=== PATIENT | female | born 1935 | race Caucasian/White ===

== ENCOUNTER 2020-05-22 17:30 | Outpatient (CLI) | payer MEDICARE, SELFPAY ==
[2020-05-22 18:28] LABS: Basophils Percent Auto 0.4 % (0.2-1.2); Eosinophils Absolute Auto 0.3 K/mm3 (0-0.3); Eosinophils Percent Auto 3.7 % (0-4.4); Hematocrit 36.3 % (37.0-47.0); Hemoglobin 12.2 g/dL (12.0-15.0); Immature Granulocyte Absolute 0.03 K/mm3 (0.00-0.031); Immature Granulocyte Percent A 0.4 % (0-0.5); Lymphocytes Absolute Auto 1.79 K/mm3 (0.9-3.2); Lymphocytes Percent Auto 26.6 % (18.3-44.2); Mean Corpuscular HGB Conc 33.6 g/dl (32-36); Mean Corpuscular Hemoglobin 30.7 pg (26-34); Mean Corpuscular Volume 91.2 fl (80-100); Mean Platelet Volume 10.1 fl (7.4-10.4); Monocytes Absolute Auto 0.7 K/mm3 (0.1-0.6); Monocytes Percent Auto 9.7 % (2.6-8.5); Neutrophils Percent Auto 59.2 % (45.5-73.1); Platelet Count Result 215 k/mm3 (150-375); Red Blood Count 3.98 M/mm3 (4.2-5.4); Red Cell Distribution Width 12.5 % (11.5-14.5); White Blood Count 6.7 K/mm3 (4.5-10.0)
[2020-05-22 18:42] LABS: Alanine Aminotransferase 19 U/L (4-35); Albumin Level 4.3 g/dL (3.5-5.1); Alkaline Phosphatase 87 U/L (38-126); Anion Gap 8 mmol/L (8-16); Aspartate Amino Transferase 28 U/L (14-36); Bilirubin,Total 0.3 mg/dL (0.2-1.3); Blood Urea Nitrogen 16 mg/dL (7-17); Calcium 9.6 mg/dL (8.4-10.2); Carbon Dioxide 27 mmol/L (22-30); Chloride 98 mmol/L (98-107); Cholesterol 190 mg/dL (0-200); Estimated Glomerular Filt Rate > 60; Glucose 87 mg/dL (65-105); HDL Direct 44 mg/dL; Potassium 4.3 mmol/L (3.4-5.0); Sodium 133 mmol/L (137-145); Triglycerides 165 mg/dL (<150)
[2020-05-22 18:53] LABS: LDL Cholesterol Direct 102 mg/dL
== END 2020-05-22 17:31 | disposition home or self-care (01) ==
PROVIDERS: PCP Family Medicine; Visit Provider Family Medicine
DX: G89.29 Other chronic pain (principal); M54.5 Low back pain; I10 Essential (primary) hypertension
CPT/HCPCS: 36415; 80053; 80061; 84443; 85025

== ENCOUNTER 2021-06-09 17:48 | Emergency (ER) | payer MEDICARE, SELFPAY ==
--- NOTE | ~2021-06-09 | XR_ITS ---
EXAMINATION: XR elbow LT min 3V DATE: 06/09/2021 20:22 INDICATION: Posterior left elbow pain and skin tear post fall. TECHNIQUE: Anteroposterior, two oblique and lateral views of the left elbow were obtained. COMPARISON: None. FINDINGS: Alignment is normal. No fracture or joint effusion. Mild osteoarthritis at the left elbow. Small enth esophytes at the lateral epicondyle and at the olecranon insertion of the distal triceps tendon. Soft tissue swelling along the dorsal aspect of the proximal forearm. IMPRESSION: 1. Mild osteoarthritis and small enthesophytes at the left elbow. No acute osseous abnormality. Reviewed, dictated and finalized at location A. IMPRESSION: 1. Mild osteoarthritis and small enthesophytes at the left elbow. No acute osse ous abnormality.
[2021-06-09 18:08] VITALS: BP 148/64; PULSE 77; RESP 16; TEMP 36.8; O2SAT 100
[2021-06-09] MEDS: TETANUS,DIPHTHERIA,AC PERTUSSIS ADULT (0.5 ML) BOOSTRIX IM (20:30)
--- NOTE | 2021-06-09 20:38 | ED.GENADULT ---
HPI - General Adult General Chief complaint: Fall Stated complaint: Fall Time Seen by Provider: 06/09/21 19:59 History of Present Illness HPI narrative: Patient is 85-year-old female presents the emergency department with chief complaint of fall. The patient reports she was walking into a local [employer] restaurant and tripped over a curb. Patient states she then fell landing on her left elbow. The patient reports she had no loss of consciousness reports no neck pain patient states that she is unsure of her last tetanus shot but reports she had a presignificant skin tear to her left elbow. Related Data Home Medications Medication Instructions Recorded Confirmed Lactobacillus acidophilus 1.5 mg 100 mmu cells PO DAILY 05/22/20 02/06/21 (250 million cell) capsule calcium carbonate 600 mg calcium 1,200 mg PO DAILY tablet 05/22/20 02/06/21 (1,500 mg) tablet hydrocodone 5 mg-acetaminophen 325 1 tablet PO Q6H PRN 05/22/20 02/06/21 mg tablet multivitamin 1 tablet PO DAILY 05/22/20 02/06/21 Allergies Allergy/AdvReac Type Severity Reaction Status Date / Time latex Allergy Mild Other Verified 02/06/21 14:53 NSAIDS (Non-Steroidal Allergy Unknown ulcer Verified 02/06/21 14:53 Anti-Inflamma Penicillins Allergy Unknown Hives Verified 02/06/21 14:53 Sulfa (Sulfonamide Allergy Unknown Hives Verified 02/06/21 14:53 Antibiotics) fluorescein AdvReac Unknown LIGHTHEADED Verified 02/06/21 14:53 Review of Systems Review of Systems: A 10 system review of systems was completed on the patient and is negative except for what is stated in the HPI. Nursing and ancillary documentation was reviewed. [facility] Past Medical History Medical History Chronic lower back pain Constipation due to opioid therapy CTS (carpal tunnel syndrome) Gastric ulcer HTN (hypertension) Osteoarthritis Osteomyelitis of wrist Perforated duodenal ulcer Repair Rotator cuff tear Vitamin D deficiency Surgical History Surgical History H/O: hysterectomy 01/18/2016 History of appendectomy Total knee replacement status (~07/01/20) Social History Social History Smoking status: Never smoker Alcohol intake: never Substance use: never Substance use type: does not use Gender identity (if verbalized by the patient): Female Exam Narrative: GENERAL: Well-appearing, well-nourished, and in no acute distress. HEAD: Normocephalic, small abrasion present next to the left eyebrow. EYES: PERRLA and EOMI. ENT: Nares clear, no rhinorrhea or epistaxis. Mucous membranes moist. NECK: Supple. CHEST: Clear to auscultation. No respiratory distress. HEART: Regular rate and rhythm. No murmur heard. Normal peripheral pulses. ABDOMEN: Soft, nontender, nondistended, normal active bowel sounds. EXTREMITIES: Normal range of motion. No edema. There is a large skin tear present on the left elbow SKIN: Warm, dry, no rash. NEURO: No focal deficits. Alert and oriented x3. PSYCH: Normal mood and affect. Course Course Emergency Course: Patient is currently GCS 15 shows no signs of altered mental status or focal neurological deficit she is currently not on any blood thinners the patient does not require emergent head CT shows no signs of C-spine injury. Elbow x-ray shows no evidence of fracture. Vital Signs Vital signs: Vital Signs Temperature 36.8 C 06/09/21 18:08 Pulse Rate 77 06/09/21 18:08 Respiratory Rate 16 06/09/21 18:08 Blood Pressure 148/64 H 06/09/21 18:08 Pulse Oximetry 100 06/09/21 18:08 Temperature 36.8 C 06/09/21 18:08 Pulse Rate 77 06/09/21 18:08 Respiratory Rate 16 06/09/21 18:08 Blood Pressure 148/64 H 06/09/21 18:08 Pulse Oximetry 100 06/09/21 18:08 Medical Decision Making Vital Signs Vital Signs: Vital Signs Temper
[2021-06-09 21:43] VITALS: BP 123/52; PULSE 66; RESP 18; O2SAT 99
== END 2021-06-09 21:53 | disposition home or self-care (01) ==
PROVIDERS: Emergency Provider Emergency Medicine; PCP Family Medicine
DX: S51.012A Laceration without foreign body of left elbow, initial encounter (principal); S09.90XA Unspecified injury of head, initial encounter; S50.02XA Contusion of left elbow, initial encounter; Z23 Encounter for immunization; I10 Essential (primary) hypertension; M19.90 Unspecified osteoarthritis, unspecified site; E55.9 Vitamin D deficiency, unspecified; W10.1XXA Fall (on)(from) sidewalk curb, initial encounter
CPT/HCPCS: 73080; 90471; 90715; 99283

== ENCOUNTER 2021-07-10 14:11 | Outpatient (CLI) | payer MEDICARE, SELFPAY ==
[2021-07-10 14:38] LABS: Basophils Percent Auto 0.6 % (0.2-1.2); Eosinophils Absolute Auto 0.2 K/mm3 (0-0.3); Eosinophils Percent Auto 2.9 % (0-4.4); Hematocrit 34.7 % (37.0-47.0); Hemoglobin 11.2 g/dL (12.0-15.0); Immature Granulocyte Absolute 0.01 K/mm3 (0.00-0.031); Immature Granulocyte Percent A 0.1 % (0-0.5); Lymphocytes Absolute Auto 1.03 K/mm3 (0.9-3.2); Lymphocytes Percent Auto 14.9 % (18.3-44.2); Mean Corpuscular HGB Conc 32.3 g/dl (32-36); Mean Corpuscular Hemoglobin 28.9 pg (26-34); Mean Corpuscular Volume 89.7 fl (80-100); Mean Platelet Volume 10.1 fl (7.4-10.4); Monocytes Absolute Auto 0.9 K/mm3 (0.1-0.6); Monocytes Percent Auto 12.4 % (2.6-8.5); Neutrophils Absolute Auto 4.8 K/mm3 (1.3-6.7); Neutrophils Percent Auto 69.1 % (45.5-73.1); Platelet Count Result 224 k/mm3 (150-375); Red Blood Count 3.87 M/mm3 (4.2-5.4); Red Cell Distribution Width 12.6 % (11.5-14.5); White Blood Count 6.9 K/mm3 (4.5-10.0)
[2021-07-10 14:58] LABS: Alanine Aminotransferase 17 U/L (4-35); Albumin Level 4.7 g/dL (3.5-5.1); Alkaline Phosphatase 96 U/L (38-126); Anion Gap 7 mmol/L (8-16); Aspartate Amino Transferase 31 U/L (14-36); Bilirubin,Total 0.3 mg/dL (0.2-1.3); Blood Urea Nitrogen 27 mg/dL (7-17); Calcium 9.8 mg/dL (8.4-10.2); Carbon Dioxide 30 mmol/L (22-30); Chloride 97 mmol/L (98-107); Cholesterol 193 mg/dL (0-200); Estimated Glomerular Filt Rate 60; Glucose 99 mg/dL (65-110); HDL Direct 56 mg/dL; Potassium 4.8 mmol/L (3.4-5.0); Sodium 134 mmol/L (137-145); Triglycerides 229 mg/dL (<150)
[2021-07-10 15:10] LABS: LDL Cholesterol Direct 98 mg/dL
[2021-07-10 16:12] LABS: Vitamin D 25 Hydroxy 49.5 ng/mL
== END 2021-07-10 14:12 | disposition home or self-care (01) ==
PROVIDERS: PCP Family Medicine; Visit Provider Family Medicine
DX: E78.5 Hyperlipidemia, unspecified (principal); I10 Essential (primary) hypertension; E55.9 Vitamin D deficiency, unspecified
CPT/HCPCS: 36415; 80053; 80061; 82306; 84443; 85025

== ENCOUNTER 2022-01-22 14:12 | Outpatient (CLI) | payer MEDICARE, SELFPAY ==
[2022-01-22 14:33] LABS: Basophils Percent Auto 0.6 % (0.2-1.2); Eosinophils Absolute Auto 0.2 K/mm3 (0-0.3); Eosinophils Percent Auto 2.3 % (0-4.4); Hematocrit 26.9 % (37.0-47.0); Hemoglobin 7.8 g/dL (12.0-15.0); Immature Granulocyte Absolute 0.01 K/mm3 (0.00-0.031); Immature Granulocyte Percent A 0.1 % (0-0.5); Lymphocytes Absolute Auto 0.94 K/mm3 (0.9-3.2); Lymphocytes Percent Auto 13.4 % (18.3-44.2); Mean Platelet Volume 9.3 fl (7.4-10.4); Monocytes Absolute Auto 0.8 K/mm3 (0.1-0.6); Neutrophils Absolute Auto 5.1 K/mm3 (1.3-6.7); Neutrophils Percent Auto 72.6 % (45.5-73.1); Platelet Count Result 274 k/mm3 (150-375); Red Blood Count 3.54 M/mm3 (4.2-5.4); Red Cell Distribution Width 16.3 % (11.5-14.5)
[2022-01-22 14:52] LABS: Hypochromasia 1+ (NORMAL); Ovalocytes 1+ (NORMAL); Platelet Estimate Adequate (Adequate)
[2022-01-22 15:49] LABS: Alanine Aminotransferase 17 U/L (4-35); Albumin Level 4.5 g/dL (3.5-5.1); Alkaline Phosphatase 93 U/L (38-126); Anion Gap 8 mmol/L (8-16); Aspartate Amino Transferase 32 U/L (14-36); Bilirubin,Total 0.3 mg/dL (0.2-1.3); Blood Urea Nitrogen 23 mg/dL (7-17); Calcium 9.3 mg/dL (8.4-10.2); Carbon Dioxide 25 mmol/L (22-30); Chloride 102 mmol/L (98-107); Estimated Glomerular Filt Rate 59; Glucose 103 mg/dL (65-110); Potassium 4.4 mmol/L (3.4-5.0); Sodium 135 mmol/L (137-145)
== END 2022-01-22 14:13 | disposition home or self-care (01) ==
LOC: ANHLAB 14:15
PROVIDERS: PCP Family Medicine; Visit Provider Family Medicine
DX: D64.9 Anemia, unspecified (principal); I10 Essential (primary) hypertension
CPT/HCPCS: 36415; 80053; 85025

== ENCOUNTER 2022-02-04 16:19 | Outpatient (NON) | payer MEDICARE, SELFPAY ==
[2022-02-04 20:42] LABS: IFOB Positive Control Positive; Immunochemical Fecal Occult Bl Positive (N)
== END 2022-02-04 16:20 | disposition home or self-care (01) ==
LOC: ANHLAB 16:21
PROVIDERS: PCP Family Medicine; Visit Provider Family Medicine
DX: D64.9 Anemia, unspecified (principal)
CPT/HCPCS: 82274

== ENCOUNTER 2022-02-05 15:17 | Outpatient (CLI) | payer MEDICARE, SELFPAY ==
[2022-02-05 15:38] LABS: Basophils Percent Auto 0.4 % (0.2-1.2); Eosinophils Absolute Auto 0.2 K/mm3 (0-0.3); Eosinophils Percent Auto 2.3 % (0-4.4); Hematocrit 27.5 % (37.0-47.0); Hemoglobin 7.9 g/dL (12.0-15.0); Immature Granulocyte Absolute 0.02 K/mm3 (0.00-0.031); Immature Granulocyte Percent A 0.3 % (0-0.5); Lymphocytes Absolute Auto 1.11 K/mm3 (0.9-3.2); Mean Corpuscular HGB Conc 28.7 g/dl (32-36); Mean Corpuscular Hemoglobin 21.5 pg (26-34); Mean Corpuscular Volume 74.7 fl (80-100); Mean Platelet Volume 9.4 fl (7.4-10.4); Monocytes Absolute Auto 0.8 K/mm3 (0.1-0.6); Monocytes Percent Auto 11.8 % (2.6-8.5); Neutrophils Absolute Auto 4.8 K/mm3 (1.3-6.7); Neutrophils Percent Auto 69.2 % (45.5-73.1); Platelet Count Result 283 k/mm3 (150-375); Red Blood Count 3.68 M/mm3 (4.2-5.4); Red Cell Distribution Width 16.5 % (11.5-14.5); White Blood Count 6.9 K/mm3 (4.5-10.0)
[2022-02-05 15:55] LABS: Hypochromasia 1+ (NORMAL); Ovalocytes 1+ (NORMAL); Platelet Estimate Adequate (Adequate)
[2022-02-05 16:31] LABS: Iron 21 ug/dL (37-170)
[2022-02-05 16:41] LABS: Percent Iron Saturation 4 % (20-50)
[2022-02-05 17:08] LABS: Ferritin 5.71 ng/mL (11.1-264)
[2022-02-05 17:17] LABS: Folic Acid > 20.0 ng/mL (2.76->20)
== END 2022-02-05 15:18 | disposition home or self-care (01) ==
PROVIDERS: PCP Family Medicine; Visit Provider Family Medicine
DX: D64.9 Anemia, unspecified (principal)
CPT/HCPCS: 36415; 82607; 82728; 82746; 83540; 83550; 85025

== ENCOUNTER 2022-03-09 10:50 | Outpatient (CLI) | payer MEDICARE, SELFPAY ==
[2022-03-09 11:29] LABS: Hematocrit 32.7 % (37.0-47.0); Hemoglobin 10.2 g/dL (12.0-15.0); Mean Corpuscular HGB Conc 31.2 g/dl (32-36); Mean Corpuscular Hemoglobin 24.6 pg (26-34); Mean Platelet Volume 9.5 fl (7.4-10.4); Platelet Count Result 241 k/mm3 (150-375); Red Blood Count 4.14 M/mm3 (4.2-5.4); Red Cell Distribution Width 25.3 % (11.5-14.5); White Blood Count 5.1 K/mm3 (4.5-10.0)
[2022-04-03 15:09] LABS: Gliadin AB, IgG <1.0 U/mL (<15.0); Reticulin IgA Negative (Negative); TTG IGA AB <1.0 U/mL (<15.0)
== END 2022-03-09 10:51 | disposition home or self-care (01) ==
LOC: ANHLAB 10:54
PROVIDERS: PCP Family Medicine; Visit Provider Nurse Practitioner
DX: D50.9 Iron deficiency anemia, unspecified (principal); K59.09 Other constipation
CPT/HCPCS: 36415; 83516; 84443; 85027; 86255

== ENCOUNTER 2022-05-19 16:09 | Outpatient (CLI) | payer MEDICARE, SELFPAY ==
[2022-05-19 16:58] LABS: Basophils Percent Auto 0.5 % (0.2-1.2); Eosinophils Absolute Auto 0.2 K/mm3 (0-0.3); Eosinophils Percent Auto 3.2 % (0-4.4); Hematocrit 37.9 % (37.0-47.0); Hemoglobin 12.2 g/dL (12.0-15.0); Immature Granulocyte Absolute 0.01 K/mm3 (0.00-0.031); Immature Granulocyte Percent A 0.2 % (0-0.5); Lymphocytes Absolute Auto 0.97 K/mm3 (0.9-3.2); Lymphocytes Percent Auto 17.2 % (18.3-44.2); Mean Corpuscular HGB Conc 32.2 g/dl (32-36); Mean Corpuscular Hemoglobin 29.1 pg (26-34); Mean Corpuscular Volume 90.5 fl (80-100); Mean Platelet Volume 9.7 fl (7.4-10.4); Monocytes Absolute Auto 0.6 K/mm3 (0.1-0.6); Monocytes Percent Auto 11.2 % (2.6-8.5); Neutrophils Absolute Auto 3.8 K/mm3 (1.3-6.7); Neutrophils Percent Auto 67.7 % (45.5-73.1); Platelet Count Result 218 k/mm3 (150-375); Red Blood Count 4.19 M/mm3 (4.2-5.4); White Blood Count 5.6 K/mm3 (4.5-10.0)
[2022-05-19 17:12] LABS: Alanine Aminotransferase 20 U/L (6-35); Albumin Level 4.5 g/dL (3.5-5.1); Alkaline Phosphatase 84 U/L (38-126); Anion Gap 11 mmol/L (8-16); Aspartate Amino Transferase 32 U/L (14-36); Bilirubin,Total 0.2 mg/dL (0.2-1.3); Blood Urea Nitrogen 21 mg/dL (7-17); Calcium 9.6 mg/dL (8.4-10.2); Carbon Dioxide 30 mmol/L (22-30); Chloride 94 mmol/L (98-107); Estimated Glomerular Filt Rate 59; Glucose 94 mg/dL (65-110); Lactate Dehydrogenase 207 U/L (120-246); Potassium 4.1 mmol/L (3.4-5.0); Sodium 135 mmol/L (137-145)
[2022-05-19 17:15] LABS: Iron 73 ug/dL (37-170)
[2022-05-19 18:40] LABS: Folic Acid > 20.0 ng/mL (2.76->20)
[2022-05-19 18:40] LABS: Percent Iron Saturation 17 % (20-50)
[2022-05-23 08:25] LABS: Methylmalonic Acid 173 nmol/L (87-318)
== END 2022-05-19 16:10 | disposition home or self-care (01) ==
LOC: ANHLAB 16:11
PROVIDERS: PCP Family Medicine; Visit Provider Internal Medicine Hematology & Oncology
DX: D64.9 Anemia, unspecified (principal)
CPT/HCPCS: 36415; 80053; 82607; 82728; 82746; 83540; 83550; 83615; 83921; 85025

== ENCOUNTER 2022-08-06 13:56 | Outpatient (CLI) | payer MEDICARE, SELFPAY ==
[2022-08-06 14:14] LABS: Basophils Absolute Auto 0.1 K/mm3 (0.0-0.1); Basophils Percent Auto 0.6 % (0.2-1.2); Eosinophils Absolute Auto 0.2 K/mm3 (0-0.3); Eosinophils Percent Auto 2.8 % (0-4.4); Hematocrit 39.5 % (37.0-47.0); Hemoglobin 13.3 g/dL (12.0-15.0); Immature Granulocyte Absolute 0.02 K/mm3 (0.00-0.031); Immature Granulocyte Percent A 0.3 % (0-0.5); Lymphocytes Absolute Auto 1.24 K/mm3 (0.9-3.2); Lymphocytes Percent Auto 15.8 % (18.3-44.2); Mean Corpuscular HGB Conc 33.7 g/dl (32-36); Monocytes Absolute Auto 0.9 K/mm3 (0.1-0.6); Neutrophils Absolute Auto 5.5 K/mm3 (1.3-6.7); Neutrophils Percent Auto 69.5 % (45.5-73.1); Platelet Count Result 231 k/mm3 (150-375); Red Blood Count 4.16 M/mm3 (4.2-5.4); Red Cell Distribution Width 12.8 % (11.5-14.5); White Blood Count 7.8 K/mm3 (4.5-10.0)
[2022-08-06 16:30] LABS: Iron 62 ug/dL (37-170)
[2022-08-06 16:40] LABS: Percent Iron Saturation 15 % (20-50)
[2022-08-06 17:55] LABS: Folic Acid > 20.0 ng/mL (2.76->20)
== END 2022-08-06 13:57 | disposition home or self-care (01) ==
PROVIDERS: PCP Family Medicine; Visit Provider Internal Medicine Hematology & Oncology
DX: D64.9 Anemia, unspecified (principal)
CPT/HCPCS: 36415; 82607; 82728; 82746; 83540; 83550; 85025

== ENCOUNTER 2022-11-05 14:46 | Outpatient (CLI) | payer MEDICARE, SELFPAY ==
[2022-11-05 14:58] LABS: Basophils Percent Auto 0.3 % (0.2-1.2); Eosinophils Absolute Auto 0.2 K/mm3 (0-0.3); Eosinophils Percent Auto 2.3 % (0-4.4); Hematocrit 39.9 % (37.0-47.0); Hemoglobin 13.4 g/dL (12.0-15.0); Immature Granulocyte Absolute 0.02 K/mm3 (0.00-0.031); Immature Granulocyte Percent A 0.3 % (0-0.5); Lymphocytes Absolute Auto 1.18 K/mm3 (0.9-3.2); Lymphocytes Percent Auto 16.8 % (18.3-44.2); Mean Corpuscular HGB Conc 33.6 g/dl (32-36); Mean Corpuscular Hemoglobin 31.9 pg (26-34); Mean Platelet Volume 9.5 fl (7.4-10.4); Monocytes Absolute Auto 0.7 K/mm3 (0.1-0.6); Monocytes Percent Auto 10.4 % (2.6-8.5); Neutrophils Absolute Auto 4.9 K/mm3 (1.3-6.7); Neutrophils Percent Auto 69.9 % (45.5-73.1); Platelet Count Result 230 k/mm3 (150-375); Red Cell Distribution Width 12.3 % (11.5-14.5)
[2022-11-05 16:37] LABS: Iron 51 ug/dL (37-170)
[2022-11-05 16:38] LABS: Anion Gap 7 mmol/L (8-16); Blood Urea Nitrogen 23 mg/dL (7-17); Calcium 9.2 mg/dL (8.4-10.2); Carbon Dioxide 32 mmol/L (22-30); Chloride 97 mmol/L (98-107); Estimated Glomerular Filt Rate 59; Glucose 97 mg/dL (65-110); Potassium 4.2 mmol/L (3.4-5.0); Sodium 136 mmol/L (137-145)
[2022-11-05 16:50] LABS: Percent Iron Saturation 13 % (20-50)
[2022-11-05 17:48] LABS: Folic Acid > 20.0 ng/mL (2.76->20)
== END 2022-11-05 14:47 | disposition home or self-care (01) ==
LOC: ANHLAB 14:47
PROVIDERS: PCP Family Medicine; Visit Provider Internal Medicine Hematology & Oncology
DX: D64.9 Anemia, unspecified (principal)
CPT/HCPCS: 36415; 80048; 82607; 82728; 82746; 83540; 83550; 85025

== ENCOUNTER 2023-01-01 18:27 | Outpatient (NON) | payer MEDICARE, SELFPAY | END 2023-01-01 18:28 | disposition home or self-care (01) | LOC: ANHLAB 18:30 | PROVIDERS: PCP Family Medicine; Visit Provider Nurse Practitioner | DX: R39.9 Unspecified symptoms and signs involving the genitourinary system (principal) | CPT/HCPCS: 87077; 87086; 87186 ==

== ENCOUNTER 2023-02-24 15:50 | Outpatient (CLI) | payer MEDICARE, SELFPAY ==
[2023-02-24 16:03] LABS: Basophils Percent Auto 0.8 % (0.2-1.2); Eosinophils Absolute Auto 0.3 K/mm3 (0-0.3); Hematocrit 34.9 % (37.0-47.0); Hemoglobin 11.6 g/dL (12.0-15.0); Immature Granulocyte Absolute 0.01 K/mm3 (0.00-0.031); Immature Granulocyte Percent A 0.2 % (0-0.5); Lymphocytes Absolute Auto 1.06 K/mm3 (0.9-3.2); Lymphocytes Percent Auto 20.5 % (18.3-44.2); Mean Corpuscular HGB Conc 33.2 g/dl (32-36); Mean Corpuscular Hemoglobin 31.9 pg (26-34); Mean Corpuscular Volume 95.9 fl (80-100); Monocytes Absolute Auto 0.7 K/mm3 (0.1-0.6); Monocytes Percent Auto 13.9 % (2.6-8.5); Neutrophils Absolute Auto 3.1 K/mm3 (1.3-6.7); Neutrophils Percent Auto 59.6 % (45.5-73.1); Platelet Count Result 197 k/mm3 (150-375); Red Blood Count 3.64 M/mm3 (4.2-5.4); White Blood Count 5.2 K/mm3 (4.5-10.0)
[2023-02-24 16:31] LABS: Anion Gap 6 mmol/L (8-16); Blood Urea Nitrogen 31 mg/dL (7-17); Carbon Dioxide 28 mmol/L (22-30); Chloride 102 mmol/L (98-107); Estimated Glomerular Filt Rate 47; Glucose 92 mg/dL (65-110); Potassium 4.5 mmol/L (3.4-5.0); Sodium 136 mmol/L (137-145)
[2023-02-24 17:20] LABS: Iron 138 ug/dL (37-170)
[2023-02-24 17:29] LABS: Percent Iron Saturation 39 % (20-50)
[2023-02-24 17:44] LABS: Folic Acid > 20.0 ng/mL (2.76->20); Vitamin B12 > 1000.0 pg/mL (239-931)
== END 2023-02-24 15:51 | disposition home or self-care (01) ==
LOC: ANHLAB 15:52
PROVIDERS: PCP Family Medicine; Visit Provider Internal Medicine Hematology & Oncology
DX: D64.9 Anemia, unspecified (principal)
CPT/HCPCS: 36415; 80048; 82607; 82728; 82746; 83540; 83550; 85025

== ENCOUNTER 2023-02-27 14:51 | Observation (INO) | payer MEDICARE, SELFPAY ==
--- NOTE | ~2023-02-27 | XR_ITS ---
EXAMINATION: XR hip BI 2V w AP pelvis DATE: 02/27/2023 15:54 INDICATION: Pelvic pain after fall TECHNIQUE: AP view of the pelvis and two views of each hip were obtained. COMPARISON: 10/13/2011 FINDINGS: Bone alignment is normal. There is no fracture. There is mild osteoarthritis of the hips. S evere lumbar spondylosis is noted. A large volume of colonic stool is present. IMPRESSION: 1. No acute osseous abnormality. Reviewed, dictated and finalized at location F.
--- NOTE | ~2023-02-27 | CT_ITS ---
EXAMINATION: CT brain wo con INDICATION: Head injury COMPARISON: None TECHNIQUE: Standard unenhanced head CT. The dose-length product (DLP) was 529.67 mGy-cm. The mA was a djusted according to patient size. Iterative reconstruction technique was employed. FINDINGS: There is no acute intraparenchymal hemorrhage. No evidence of mass lesion. No evidence of a cute infarction. There is mild periventricular and subcortical hypodensity probably related to small vessel ischemic disease. There is mild prominence of the sulci and ventricles related to cerebral atr ophy. Intracranial calcified cerebral atherosclerosis is noted. There are no extra-axial collections. There is no mass effect or midline shift. Changes in the globes are likely from ocular lens surgery. The visualized sinuses and mastoid air cells are well aerated. IMPRESSION: 1. No acute intracranial abnormality. 2. Age related findings. Reviewed, dictated and finalized at location F.
--- NOTE | ~2023-02-27 | XR_ITS ---
EXAMINATION: XR elbow LT min 3V DATE: 02/27/2023 15:54 INDICATION: Left elbow pain TECHNIQUE: Anteroposterior, oblique and lateral views of the left elbow were obtained. COMPARISON: 06/09/2021 FINDINGS: Alignment is normal. No fracture or joint effusion. There is soft tissue swelling overlying the olecranon. There is mild osteoarthritis of the elbow. IMPRESSION: 1. No acute osseous abnormality. Reviewed, dictated and finalized at location F.
--- NOTE | ~2023-02-27 | XR_ITS ---
EXAMINATION: XR chest 1V INDICATION: Chest pain after fall TECHNIQUE: AP view of the chest is obtained. COMPARISON: 08/01/2013 FINDINGS: The lungs are free of acute opacities. No pleural effusion or pneumothorax. The heart size is normal. There is a moderate-sized hiatal hernia. There is severe thoracic spondylosis. IMPRESSION: 1. No acute cardiopulmonary abnormality. Reviewed, dictated and finalized at location F.
--- NOTE | ~2023-02-27 | XR_ITS ---
EXAMINATION: XR elbow RT min 3V INDICATION: Right elbow pain TECHNIQUE: Three views of the right elbow were obtained. COMPARISON: None available FINDINGS: Bone alignment is normal. There is no fracture. There is mild osteoarthritis of the elbow. An overhanging osteophyte of the radial head is noted. There is mild soft tissue swelling posterior t o the proximal ulna. IMPRESSION: 1. No acute osseous abnormality. Reviewed, dictated and finalized at location F.
--- NOTE | ~2023-02-27 | CT_ITS ---
EXAMINATION: CT cervical spine wo con DATE: 02/27/2023 16:08 INDICATION: Head injury TECHNIQUE: Computed tomography (CT) of the cervical spine was performed without intravenous contrast. The dose-length product (DLP) was 102.43 mGy-cm. Automated exposure control and iterative reconstruc tion technique were employed. COMPARISON: MRI, 02/08/2008 FINDINGS: There is chronic advanced osteoarthritis at C1-2. No fracture is identified. There are 2 mm of anterolisthesis of C3 on C4 and 3 mm of anterolisthesis of C4 on C5. The vertebral body heights a re maintained. There is severe loss of intervertebral disc space height at C5-6, C6-7, and C7-T1 and moderate loss of disc space height throughout the remainder of the cervical spine. There is multileve l severe facet and uncovertebral joint osteoarthritis. IMPRESSION: 1. Severe cervical spondylosis without acute findings. Reviewed, dictated and finalized at location F.
[2023-02-27 15:00] VITALS: BP 116/48; PULSE 92; RESP 20; TEMP 37.2; O2SAT 99
--- NOTE | 2023-02-27 15:22 | ECG_ITS ---
Measurements Intervals [place] Rate: 85 P: 87 MA: 173 QRS: 33 QRSD: 97 T: 25 QT: 370 QTc: 442 Interpretive Statements SINUS RHYTHM WITH SINUS ARRHYTHMIA NO PREVIOUS ECG AVAILABLE FOR COMPARISON Electronically Signed On 02-28-2023 8:29:45 CDT by Kellen Gambino M.D.
--- NOTE | 2023-02-27 16:08 | ED.GENADULT ---
HPI - General Adult General Chief complaint: Fall Stated complaint: fall Time Seen by Provider: 02/27/23 15:08 History of Present Illness HPI narrative: Sofie Momin is an 87 y/o female who present today after a ground level fall last night at around 1999. Patient states that she was outside in the yard, lost her footing in the rocks and fell forward on to her forearms, she did hit her head/left face bumped her glasses but did not break her glasses. She denies LOC. She was able to crawl to her house and sat up and leaned against her house and tried to rest until her son found her today at around 1400. She did not feel like she could get up. She reports pain to her right hip. Her Son arrived and was able to help her up and walked with her in to her house and then transported here, he states that the pt did need assistance with walking and pt states she felt generalized weakness. Related Data Home Medications Medication Instructions Recorded Confirmed Lactobacillus acidophilus 1.5 mg 100 mmu cells PO DAILY 05/22/20 01/28/23 (250 million cell) capsule (Probiotic Acidophilus) calcium carbonate 600 mg calcium 1,200 mg PO DAILY 05/22/20 01/28/23 (1,500 mg) tablet (Calcium) hydrocodone 5 mg-acetaminophen 325 1 tablet PO Q6H PRN 05/22/20 01/28/23 mg tablet (Pearl) multivitamin (One-A-Day Essential 1 tablet PO DAILY 05/22/20 01/28/23 tablet) vitamin B complex (B 1 tablet PO DAILY 07/30/22 01/28/23 Complex-Vitamin B12 tablet) naloxegol 25 mg tablet (Movantik) 25 mg PO QAM PRN 01/01/23 01/28/23 Allergies Allergy/AdvReac Type Severity Reaction Status Date / Time latex Allergy Mild Other Verified 01/28/23 13:00 NSAIDS (Non-Steroidal Allergy Unknown ulcer Verified 01/28/23 13:00 Anti-Inflamma Penicillins Allergy Unknown Hives Verified 01/28/23 13:00 Sulfa (Sulfonamide Allergy Unknown Hives Verified 01/28/23 13:00 Antibiotics) fluorescein AdvReac Unknown LIGHTHEADED Verified 01/28/23 13:00 Review of Systems Review of Systems: CONSTITUTIONAL: Denies fever, chills, or sweats. EYES: Denies visual changes, redness, or discharge. ENT: Denies rhinorrhea, congestion, sore throat, or otalgia. CARDIOVASCULAR: Denies chest pain, palpitations, or edema. RESPIRATORY: Denies cough or dyspnea. GASTROINTESTINAL: Denies abdominal pain, nausea, vomiting, or diarrhea. GENITOURINARY: Denies dysuria or hematuria. SKIN: Denies rash or itching. MUSCULOSKELETAL: Complains of right hip pain NEUROLOGIC: Denies headache, numbness, dizziness, or weakness. PSYCHIATRIC: Denies anxiety or depression. [facility] Past Medical History Medical History Chronic lower back pain Constipation due to opioid therapy CTS (carpal tunnel syndrome) Duodenal ulcer perforation Gastric ulcer HTN (hypertension) Iron deficiency anemia Osteoarthritis Osteomyelitis of wrist Perforated duodenal ulcer Repair Rotator cuff tear Vitamin D deficiency Surgical History Surgical History H/O cataract removal with insertion of prosthetic lens H/O: hysterectomy 01/18/2016 History of appendectomy Total knee replacement status (~07/01/20) Social History Social History Social History: Sofie is , she has not children and has no living family. Her 's cousin is her power of regulatory attorney, he lives close by and drives her to her appointments. She lives in her own home. Smoking status: Never smoker Alcohol intake: never Substance use: never Substance use type: does not use Lack of Transportation: No Lack of Food: Never True Current Housing: I Have Housing Concerned About Future Housing: No Difficulty Paying Gas/Electric Bills: No Difficulty Paying for Meds: No Currently Unemployed: No Education: High School Diploma/GED Difficulty w/ Childcare or Family Care: No Living arran
--- NOTE | 2023-02-27 16:47 | PC.NURSE ---
States last night while doing yard work, was standing on rocks and lost her balance fell to the ground. Pt was able to brace herself with arms but did hit the left side of her head. Denies any LOC. Denies any blood thinners. States she is achy all over form the fall.
[2023-02-27 16:52] LABS: Basophils Percent Auto 0.2 % (0.2-1.2); Hematocrit 38.7 % (37.0-47.0); Hemoglobin 12.9 g/dL (12.0-15.0); Immature Granulocyte Absolute 0.06 K/mm3 (0.00-0.031); Immature Granulocyte Percent A 0.4 % (0-0.5); Lymphocytes Absolute Auto 0.76 K/mm3 (0.9-3.2); Lymphocytes Percent Auto 5.7 % (18.3-44.2); Mean Corpuscular HGB Conc 33.3 g/dl (32-36); Mean Corpuscular Hemoglobin 31.7 pg (26-34); Mean Corpuscular Volume 95.1 fl (80-100); Mean Platelet Volume 10.1 fl (7.4-10.4); Monocytes Absolute Auto 0.9 K/mm3 (0.1-0.6); Monocytes Percent Auto 6.9 % (2.6-8.5); Neutrophils Absolute Auto 11.6 K/mm3 (1.3-6.7); Neutrophils Percent Auto 86.8 % (45.5-73.1); Platelet Count Result 259 k/mm3 (150-375); Red Blood Count 4.07 M/mm3 (4.2-5.4); Red Cell Distribution Width 12.6 % (11.5-14.5); White Blood Count 13.4 K/mm3 (4.5-10.0)
[2023-02-27 17:05] LABS: Lactic Acid Reflex 1.6 mmol/L (0.7-2.0)
[2023-02-27 17:06] LABS: Alanine Aminotransferase 29 U/L (6-35); Albumin Level 4.8 g/dL (3.5-5.1); Alkaline Phosphatase 96 U/L (38-126); Anion Gap 7 mmol/L (8-16); Aspartate Amino Transferase 51 U/L (14-36); Bilirubin,Total 0.8 mg/dL (0.2-1.3); Blood Urea Nitrogen 29 mg/dL (7-17); Carbon Dioxide 29 mmol/L (22-30); Chloride 103 mmol/L (98-107); Estimated CRCL calculation 33 ml/min; Estimated Glomerular Filt Rate > 60; Glucose 101 mg/dL (65-110); Potassium 4.2 mmol/L (3.4-5.0); Sodium 139 mmol/L (137-145)
[2023-02-27] MEDS: SODIUM CHLORIDE 0.9% IV 1,000 ML 500 ML IV CONT (17:15)
[2023-02-27 17:25] LABS: NT Pro B Type Natriuretic Pept 479 pg/mL (19.9-100); Troponin I < 0.012 ng/mL (0.000-0.034)
[2023-02-27] MEDS: BACITRACIN OINTMENT 15 GM TUBE 1 APPLIC TOPICAL (17:43)
[2023-02-27 19:15] VITALS: BP 160/65; PULSE 95; RESP 17; O2SAT 98
[2023-02-27] MEDS: SODIUM CHLORIDE 0.9% IV 1,000 ML 125 ML IV CONT (19:25)
[2023-02-27 19:44] LABS: Creatine Kinase 924 U/L (30-135)
[2023-02-27 20:27] VITALS: BP 156/63; PULSE 91; RESP 18; TEMP 37.1; O2SAT 98
[2023-02-27 20:28] VITALS: BMI 25.8
[2023-02-27 20:34] VITALS: BP 156/63; PULSE 91; RESP 18; TEMP 37.1; O2SAT 98; BMI 25.8
--- NOTE | 2023-02-27 20:40 | PM.IMHP ---
H&P: HPI History of Present Illness Date/Time: 02/27/23 20:40 Chief Complaint: fall Narrative: this is an 87-year-old female patient who lives home alone. The patient stated that she had a fall after ground level fall that occurred last night around 8:00 p.m.. She stated that she was outside in the yd she lost her footing in the rock she fell forward on her forearms. She did hit her head and her left face. She bumped her glasses but did not break them. She denies any loss of consciousness. Patient was able to crawl under house instead of bili to gets her house and tried to rest until Somebody found her today at 2:00 p.m.. The patient felt like she could not get up. she reports pain to her right hip. Her friend was able to help her up and walked her into the house and then transported her here. The patient did need assistance with walking and felt generalized weakness. Her white count was noted to be 13.4. her total CK was 924. Cervical spine CT was read as severe cervical spondylosis without Acute findings. Head CT was read as no acute intracranial abnormality age-related findings. Chest x-ray was read as no acute cardiopulmonary abnormality. Hip and pelvis x-ray was read as no acute osseous abnormality. Right elbow was read as no acute osseous abnormality. Left elbow was read as no acute osseous abnormality. The patient was started on IV fluids. The patient was admitted to observation status on the date of service 02/27/2023 Review of Systems Review of Systems: All systems reviewed & are unremarkable except as noted in HPI and below Constitutional: Constitutional: Reports as per HPI and Reports no additional constitutional complaints Eyes: Eyes: Reports as per HPI and Reports no additional eye complaints ENT: Reports system reviewed and no additional complaints, except as documented and Reports Normal hearing present Cardiovascular: Cardiovascular: Reports no additional cardiovascular complaints Respiratory: Respiratory: Reports no additional respiratory complaints and Reports no additional respiratory complaints Gastrointestinal: Gastrointestinal: Reports as per HPI and Reports no additional gastrointestinal complaints Musculoskeletal: Musculoskeletal: Reports no additional musculoskeletal complaints Integumentary/Breasts: Skin/Breast: Reports system reviewed and no additional complaints, except as docu and Reports as per HPI Neurologic: Reports system reviewed and no additional complaints, except as documented, Reports as per HPI and Reports Normal hearing present Psychiatric: Psychiatric: Reports no additional psychiatric complaints and Reports as per HPI Endocrine: Endocrine: Reports no additional endocrine complaints Hematologic/Lymphatic: Hematologic/Lymphatic: Reports no additional hematologic/lymphatic complaints Allergic/Immunologic: Allergic/Immunologic: Reports no additional allergic/immunologic complaints [facility] Past Medical History Medical History (Updated 02/28/23 @ 00:44 by Sylvia Bassett NP) Chronic lower back pain Constipation due to opioid therapy CTS (carpal tunnel syndrome) Duodenal ulcer perforation Gastric ulcer HTN (hypertension) Iron deficiency anemia Osteoarthritis Osteomyelitis of wrist Perforated duodenal ulcer Repair Rhabdomyolysis Rotator cuff tear Vitamin D deficiency Surgical History Surgical History (Updated 02/28/23 @ 00:31 by Sylvia Bassett NP) H/O cataract removal with insertion of prosthetic lens H/O colectomy H/O vein stripping H/O: hysterectomy 01/18/2016 History of appendectomy History of carpal tunnel release History of removal of pigmented skin lesion Total knee replacement status (~07/01/20) Family History Family History Father Acute myocardial infarction Mother Coronary artery disease Social History Social History (Updated 02/28/23 @ 00:33 by Sylvia Bassett NP) Social Hist
--- NOTE | 2023-02-27 20:44 | ADMGEN ---
This patient, Sofie Momin, was admitted to Medical Room 349-01. Patient/family oriented to hospital policies and general routines including ID bracelet, bed and alarms, visiting hours, pain management, procedures, bathroom and other care routines, personal items, smoking policy, room service/diet, and visiting hours. Information on how to activate the Rapid Response Team has been discussed. Patient/Family are encouraged to report perceived risks to care and to ask questions if they do not understand what they are told or what they should do.
[2023-02-28] MEDS: SODIUM CHLORIDE 0.9% IV 1,000 ML 125 ML IV CONT (05:03)
[2023-02-28 05:07] VITALS: BP 101/79; PULSE 84; RESP 18; TEMP 36.4; O2SAT 100
[2023-02-28 05:47] LABS: Add Urine Microscopic? YES; Appearance Urine Cloudy (Clear); Bacteria Urine 1+ /hpf; Bilirubin Urine Negative (Negative); Blood Urine 2+ (Negative); Color Urine Yellow (Yellow); Glucose Urine UA Negative (Negative); Ketones Urine 1+ mg/dL (Negative); Leukocyte Esterase Ur 2+ LEU/UL (Negative); Need Manual Microscopic Reviewed; Nitrate Urine Negative (Negative); Protein Urine Negative (Negative); Specific Grav Ur 1.019 (1.001-1.035); Squamous Epithelial Cell Urine Few /hpf (Few); Urobilinogen Urine 0.2 mg/dL (<2.0)
[2023-02-28 07:11] LABS: Basophils Percent Auto 0.3 % (0.2-1.2); Eosinophils Absolute Auto 0.1 K/mm3 (0-0.3); Eosinophils Percent Auto 0.8 % (0-4.4); Hematocrit 31.9 % (37.0-47.0); Hemoglobin 9.9 g/dL (12.0-15.0); Immature Granulocyte Absolute 0.03 K/mm3 (0.00-0.031); Immature Granulocyte Percent A 0.3 % (0-0.5); Lymphocytes Absolute Auto 0.83 K/mm3 (0.9-3.2); Lymphocytes Percent Auto 9.4 % (18.3-44.2); Mean Corpuscular Hemoglobin 31.4 pg (26-34); Mean Corpuscular Volume 101.3 fl (80-100); Mean Platelet Volume 10.4 fl (7.4-10.4); Monocytes Absolute Auto 0.8 K/mm3 (0.1-0.6); Monocytes Percent Auto 9.5 % (2.6-8.5); Neutrophils Percent Auto 79.7 % (45.5-73.1); Platelet Count Result 181 k/mm3 (150-375); Red Blood Count 3.15 M/mm3 (4.2-5.4); Red Cell Distribution Width 13.2 % (11.5-14.5); White Blood Count 8.8 K/mm3 (4.5-10.0)
[2023-02-28 07:25] LABS: Alanine Aminotransferase 22 U/L (6-35); Albumin Level 3.2 g/dL (3.5-5.1); Alkaline Phosphatase 64 U/L (38-126); Anion Gap 4 mmol/L (8-16); Aspartate Amino Transferase 38 U/L (14-36); Bilirubin,Total 0.6 mg/dL (0.2-1.3); Blood Urea Nitrogen 18 mg/dL (7-17); Calcium 8.4 mg/dL (8.4-10.2); Carbon Dioxide 24 mmol/L (22-30); Chloride 109 mmol/L (98-107); Creatine Kinase 602 U/L (30-135); Estimated CRCL calculation 42 ml/min; Estimated Glomerular Filt Rate > 60; Glucose 89 mg/dL (65-110); Magnesium 1.9 mg/dL (1.6-2.3); Potassium 3.9 mmol/L (3.4-5.0); Sodium 137 mmol/L (137-145)
[2023-02-28 07:36] LABS: Lactic Acid Reflex 0.6 mmol/L (0.7-2.0)
[2023-02-28 07:55] LABS: Thyroid Stimulating Hormone Reflex 0.706 uIU/mL (0.465-4.68)
[2023-02-28] MEDS: lisinopriL 20 MG TABLET 40 MG PO (09:14)
[2023-02-28] MEDS: VITAMIN B COMPLEX CAPSULE 1 CAP PO (09:14)
[2023-02-28 09:15] VITALS: PULSE 79; RESP 18; O2SAT 97
[2023-02-28] MEDS: MULTIVITAMINS THERAPEUTIC TAB (*BKC) 1 TABLET PO (09:15)
[2023-02-28] MEDS: ASCORBIC ACID 500 MG TABLET 1000 MG PO (09:15)
[2023-02-28] MEDS: FERROUS SULFATE 324 MG TABLET PO ×2 (09:15→16:55)
[2023-02-28] MEDS: MUPIROCIN 2% OINT 22 GM TUBE 1 APPLIC TOPICAL ×3 (09:16→16:54)
[2023-02-28] MEDS: FAMOTIDINE 20 MG TABLET 40 MG PO (09:18)
[2023-02-28] MEDS: HYDROcodone/acetaminophen (*CRX) 10-325 MG TABLET 1 TAB PO ×4 (09:18→21:26)
--- NOTE | 2023-02-28 11:37 | PM.IMPN ---
Progress Note: A&P Assessment and Plan (1) Rhabdomyolysis: Code(s): M62.82 - Rhabdomyolysis Status: Acute Assessment and Plan: Patient fell outside had laid outside during the night. Her total CK is 924. BUN 29 and Cr 0.8. She was started on IV fluids. TCK 602. Stop IV fluids. (2) Fall: Qualifiers: Encounter type: initial encounter Qualified Code(s): W19.XXXA - Unspecified fall, initial encounter Code(s): W19.XXXA - Unspecified fall, initial encounter Status: Acute Assessment and Plan: She fell when walking on uneven surface. She hit the left side of her face. No LOC. EKG showing no acute findings. Head CT showing no acute findings. Cervical spine CT showing severe cervical spondylosis but no acute findings. CXR clear. Hip/pelvic x-ray showing no acute osseous abnormalities. Bilateral elbow x-rays showing no acute osseous abnormalities. Patient was unable to get up after the fall. Talked with her about a LifeAlert and will have care coordination provide more information. Start PT/OT (3) HTN (hypertension): Qualifiers: Hypertension type: essential hypertension Qualified Code(s): I10 - Essential (primary) hypertension Code(s): I10 - Essential (primary) hypertension Status: Acute Assessment and Plan: Patient's blood pressure was reviewed on 02/28 Blood pressure elevated at times. Will continue current medications for now. (4) Abrasion of elbow: Qualifiers: Encounter type: initial encounter Code(s): S50.319A - Abrasion of unspecified elbow, initial encounter Status: Acute Assessment and Plan: She has bilateral UE R>L abrasions. Continue routine wound care. (5) Chronic low back pain: Qualifiers: Back pain laterality: unspecified Sciatica presence: unspecified whether sciatica present Qualified Code(s): M54.5 - Low back pain; G89.29 - Other chronic pain Code(s): M54.5 - Low back pain; G89.29 - Other chronic pain Status: Acute Assessment and Plan: Patient with chronic low back pain on chronic high dose Tennyson 5x/day. She follows with pain management. The patient fell and had difficulty getting up off the ground. Could be relate to narcotics or weakness from her back disease. Will see how she does with therapy. No children. She lives alone. She is . Cousin does help out at times. (6) Anemia: Code(s): D64.9 - Anemia, unspecified Status: Acute Assessment and Plan: Hgb 12.9 on admission but dropped to 9.9 this morning. No evidence of acute blood loss. Could be related to IV fluids. Iron studies, B12 and folate levels were normal just prior to admission. TSH normal. Stop IV fluids. Follow HH. Plan DVT prophylaxis - SCDs Code status - DNR Subjective Date/time seen: 02/28/23 11:37 Interval history: 87yo female with chronic low back pain on chronic narcotics and HTN here for fall and weakness. Patient takes Tennyson 5 times a day chronically. This is for her chronic low back pain. She denies any joint pain this morning. No chest pain or shortness of breath. Exam Narrative: AF 97.5 101/79 84 18 100% ra Gen - NARD Chest - CTA bilaterally, nml RR CV - RRR S1/S2 Abd - Soft, NT/ND, Positive BS Ext - No pedal edema Psych - Nml mood and affect Skin - Left forearm dressing was clean, dry and intact. Right miguel elbow skin abrasion dressing was intact. Objective Data Vital Signs Vital Signs: Vital Signs - 24 hr 02/27/23 15:00 02/27/23 20:27 02/27/23 19:15 Temperature 98.9 F 98.8 F Pulse Rate 92 91 95 Respiratory Rate 20 18 17 Blood Pressure 116/48 L 156/63 H 160/65 H Pulse Oximetry 99 98 98 Oxygen Delivery Room Air 02/28/23 05:07 02/28/23 09:24 02/28/23 10:15 Temperature 97.5 F L Pulse Rate 84 Respiratory Rate 18 Blood Pressure 101/79 Pulse Oximetry 100 Oxygen Delivery Room Air Room Air
[2023-02-28] MEDS: CALCIUM CARBONATE (OSCAL) 500 MG TABLET 1000 MG PO (12:47)
[2023-02-28] MEDS: polyethylene glycoL 3350 17 GM POWD.PACK PO ×2 (12:47→16:54)
[2023-02-28 14:00] VITALS: BP 149/71; PULSE 79; RESP 18; TEMP 36.5; O2SAT 97
[2023-02-28 20:46] VITALS: BP 129/57; PULSE 70; RESP 20; TEMP 37.1; O2SAT 99
[2023-03-01 05:37] LABS: Basophils Percent Auto 0.4 % (0.2-1.2); Eosinophils Absolute Auto 0.3 K/mm3 (0-0.3); Eosinophils Percent Auto 3.7 % (0-4.4); Hematocrit 30.9 % (37.0-47.0); Immature Granulocyte Absolute 0.02 K/mm3 (0.00-0.031); Immature Granulocyte Percent A 0.3 % (0-0.5); Lymphocytes Absolute Auto 1.41 K/mm3 (0.9-3.2); Lymphocytes Percent Auto 20.7 % (18.3-44.2); Mean Corpuscular HGB Conc 32.4 g/dl (32-36); Mean Corpuscular Hemoglobin 31.6 pg (26-34); Mean Corpuscular Volume 97.8 fl (80-100); Mean Platelet Volume 10.4 fl (7.4-10.4); Monocytes Absolute Auto 0.8 K/mm3 (0.1-0.6); Monocytes Percent Auto 12.1 % (2.6-8.5); Neutrophils Absolute Auto 4.3 K/mm3 (1.3-6.7); Neutrophils Percent Auto 62.8 % (45.5-73.1); Platelet Count Result 186 k/mm3 (150-375); Red Blood Count 3.16 M/mm3 (4.2-5.4); Red Cell Distribution Width 12.8 % (11.5-14.5); White Blood Count 6.8 K/mm3 (4.5-10.0)
[2023-03-01 05:47] LABS: Alanine Aminotransferase 24 U/L (6-35); Albumin Level 3.5 g/dL (3.5-5.1); Alkaline Phosphatase 58 U/L (38-126); Anion Gap 2 mmol/L (8-16); Aspartate Amino Transferase 40 U/L (14-36); Bilirubin,Total 0.4 mg/dL (0.2-1.3); Blood Urea Nitrogen 19 mg/dL (7-17); Calcium 8.5 mg/dL (8.4-10.2); Carbon Dioxide 29 mmol/L (22-30); Chloride 104 mmol/L (98-107); Creatine Kinase 302 U/L (30-135); Estimated CRCL calculation 37 ml/min; Estimated Glomerular Filt Rate > 60; Glucose 94 mg/dL (65-110); Potassium 4.2 mmol/L (3.4-5.0); Sodium 135 mmol/L (137-145)
[2023-03-01 06:00] VITALS: BP 132/56; PULSE 74; RESP 20; TEMP 36.6; O2SAT 99
[2023-03-01] MEDS: HYDROcodone/acetaminophen (*CRX) 10-325 MG TABLET 1 TAB PO ×2 (08:59→13:01)
[2023-03-01] MEDS: FAMOTIDINE 20 MG TABLET 40 MG PO (08:59)
[2023-03-01] MEDS: ASCORBIC ACID 500 MG TABLET 1000 MG PO (08:59)
[2023-03-01] MEDS: VITAMIN B COMPLEX CAPSULE 1 CAP PO (08:59)
[2023-03-01] MEDS: MULTIVITAMINS THERAPEUTIC TAB (*BKC) 1 TABLET PO (09:00)
[2023-03-01] MEDS: FERROUS SULFATE 324 MG TABLET PO (09:00)
[2023-03-01] MEDS: MUPIROCIN 2% OINT 22 GM TUBE 1 APPLIC TOPICAL ×2 (09:00→13:01)
[2023-03-01] MEDS: lisinopriL 20 MG TABLET 40 MG PO (09:00)
[2023-03-01] MEDS: polyethylene glycoL 3350 17 GM POWD.PACK PO (09:01)
[2023-03-01] MEDS: CALCIUM CARBONATE (OSCAL) 500 MG TABLET 1000 MG PO (13:01)
[2023-03-01 14:31] VITALS: BP 152/56; PULSE 77; RESP 20; TEMP 37.1; O2SAT 98
--- NOTE | 2023-03-01 14:34 | PM.DS ---
DS: Admitting Diagnosis Discharge Date 03/01/23 Admitting Diagnosis Fall DS: Discharge Diagnosis Discharge Diagnosis (1) Rhabdomyolysis: Code(s): M62.82 - Rhabdomyolysis Status: Acute (2) Fall: Qualifiers: Encounter type: initial encounter Qualified Code(s): W19.XXXA - Unspecified fall, initial encounter Code(s): W19.XXXA - Unspecified fall, initial encounter Status: Acute (3) HTN (hypertension): Qualifiers: Hypertension type: essential hypertension Qualified Code(s): I10 - Essential (primary) hypertension Code(s): I10 - Essential (primary) hypertension Status: Acute (4) Abrasion of elbow: Qualifiers: Encounter type: initial encounter Code(s): S50.319A - Abrasion of unspecified elbow, initial encounter Status: Acute (5) Chronic low back pain: Qualifiers: Back pain laterality: unspecified Sciatica presence: unspecified whether sciatica present Qualified Code(s): M54.5 - Low back pain; G89.29 - Other chronic pain Code(s): M54.5 - Low back pain; G89.29 - Other chronic pain Status: Acute (6) Anemia: Code(s): D64.9 - Anemia, unspecified Status: Acute DS: Summary Hospital Course Reason for hospitalization: 87yo female with chronic low back pain on chronic narcotics and HTN here for fall and weakness. Please see H&P for details. Hospital Course: Patient fell when walking on uneven surface. Patient was unable to get up after the fall. She hit the left side of her face. No LOC. EKG showing no acute findings. Head CT showing no acute findings. Cervical spine CT showing severe cervical spondylosis but no acute findings. CXR was clear. Hip/pelvic x-ray showing no acute osseous abnormalities. Bilateral elbow x-rays showing no acute osseous abnormalities. She did have R>L miguel-elbow abrasions treated with dressing changes. Her total CK is 924. BUN 29 and Cr 0.8. She was started on IV fluids. Repeat TCK 302. Hgb 12.9 on admission but dropped to 9.9 the next morning. No evidence of acute blood loss. Could be related to IV fluids. Iron studies, B12 and folate levels were normal just prior to admission. TSH normal. Repeat hgb was stable in the 10 range. Patient has chronic low back pain on chronic high dose [place] 5x/day. She follows with pain management. 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 Information was given for [facility]. She worked with PT/OT and did well with walking in the halls with walker. Therapist recommended walker or at least a cane but arron refused. She also refused home health. She will consider outpatient PT/OT and will contact her doctor if she is interested. She overall did well and was able to be discharged home on 03/01/23 Status at Discharge Cognitive/behavioral status at discharge: stable Time Spent with Patient Time attestation: Total time spent providing and/or coordinating discharge services: 35 minutes Time spent: Greater than 30 minutes Exam Narrative: AF 98.7 152/56 77 20 98% ra Gen - NARD Chest - CTA bilaterally, nml RR CV - RRR S1/S2 Abd - Soft, NT/ND, Positive BS Ext - No pedal edema Psych - Nml mood and affect Skin - Left forearm dressing was clean, dry and intact. Right miguel elbow skin abrasion dressing was intact. DS: Data Data Completed and Pending Labs on day of discharge: Labs from last 24 hours 03/01/23 05:05 WBC 6.8 RBC 3.16 L Hgb 10.0 L Hct 30.9 L MCV 97.8 MCH 31.6 MCHC 32.4 RDW 12.8 Plt Count 186 MPV 10.4 Immature Gran % (Auto) 0.3 Neut % (Auto) 62.8 Lymph % (Auto) 20.7 [place] % (Auto) 12.1 H Eos % (Auto) 3.7 Baso % (Auto) 0.4 Lymph # (Auto) 1.41 [place] # (Auto) 0.8 H Eos # (Auto) 0.3 Baso # (Auto) 0.0 Abs Immat Gran (auto) 0.02 Absolute Neuts (auto) 4.3 Absolute Nucleated RBC 0.0 Nucleated RBC % 0.0 Sodium 135 L Potassium 4.2 Chl
== END 2023-03-01 16:40 | disposition home or self-care (01) ==
LOC: ANHED 18:56 → ANH3MED 02-28 04:27
PROVIDERS: Nurse Practitioner; Admitting Provider Hospitalist; Emergency Provider Nurse Practitioner Family; PCP Family Medicine; Visit Provider Internal Medicine
DX: M62.82 Rhabdomyolysis (principal); S50.319A Abrasion of unspecified elbow, initial encounter; W18.31XA Fall on same level due to stepping on an object, initial encounter; M25.551 Pain in right hip; S09.90XA Unspecified injury of head, initial encounter; Y92.096 Garden or yard of other non-institutional residence as the place of occurrence of the external cause; I10 Essential (primary) hypertension; G89.29 Other chronic pain; M54.50 Low back pain, unspecified; D64.9 Anemia, unspecified; R53.1 Weakness; D50.9 Iron deficiency anemia, unspecified; E55.9 Vitamin D deficiency, unspecified; M47.812 Spondylosis without myelopathy or radiculopathy, cervical region; E86.0 Dehydration; M16.0 Bilateral primary osteoarthritis of hip; M19.022 Primary osteoarthritis, left elbow; M19.021 Primary osteoarthritis, right elbow; D72.829 Elevated white blood cell count, unspecified; R74.8 Abnormal levels of other serum enzymes; Z79.891 Long term (current) use of opiate analgesic; Z79.899 Other long term (current) drug therapy
CPT/HCPCS: 36415; 70450; 71045; 72125; 73080; 73521; 80053; 81001; 82550; 82553; 83605; 83735; 83880; 84443; 84484; 85025; 87086; 87088; 93005; 96360; 96361; 97161; 97165; 97530; 97535; 99285; A9270; G0378; J7030

== ENCOUNTER 2023-06-09 14:16 | Outpatient (CLI) | payer MEDICARE, SELFPAY | END 2023-06-09 14:17 | disposition home or self-care (01) | LOC: ANHGOSHLAB 14:20 | PROVIDERS: PCP Family Medicine; Visit Provider Family Medicine | DX: N39.0 Urinary tract infection, site not specified (principal) | CPT/HCPCS: 87077; 87086; 87186 ==

== ENCOUNTER 2023-06-24 12:31 | Outpatient (CLI) | payer MEDICARE, SELFPAY ==
[2023-06-24 12:53] LABS: Hematocrit 36.2 % (37.0-47.0); Hemoglobin 11.9 g/dL (12.0-15.0); Mean Corpuscular HGB Conc 32.9 g/dl (32-36); Mean Corpuscular Hemoglobin 30.7 pg (26-34); Mean Corpuscular Volume 93.3 fl (80-100); Mean Platelet Volume 10.4 fl (7.4-10.4); Platelet Count Result 219 k/mm3 (150-375); Red Blood Count 3.88 M/mm3 (4.2-5.4); Red Cell Distribution Width 13.2 % (11.5-14.5); White Blood Count 7.9 K/mm3 (4.5-10.0)
[2023-06-24 17:25] LABS: Iron 137 ug/dL (37-170)
[2023-06-24 17:27] LABS: Anion Gap 10 mmol/L (8-16); Blood Urea Nitrogen 25 mg/dL (7-17); Calcium 9.2 mg/dL (8.4-10.2); Carbon Dioxide 25 mmol/L (22-30); Chloride 103 mmol/L (98-107); Estimated Glomerular Filt Rate 52; Glucose 96 mg/dL (65-110); Sodium 138 mmol/L (137-145)
[2023-06-24 17:35] LABS: Percent Iron Saturation 41 % (20-50)
[2023-06-24 18:38] LABS: Folic Acid > 20.0 ng/mL (2.76->20)
== END 2023-06-24 12:32 | disposition home or self-care (01) ==
LOC: ANHLAB 12:34
PROVIDERS: PCP Family Medicine; Visit Provider Internal Medicine Hematology & Oncology
DX: D64.9 Anemia, unspecified (principal)
CPT/HCPCS: 36415; 80048; 82607; 82728; 82746; 83540; 83550; 85027

== ENCOUNTER 2023-08-23 12:31 | Outpatient (CLI) | payer MEDICARE, SELFPAY ==
[2023-08-23 19:26] LABS: Basophils Absolute Auto 0.1 K/mm3 (0.0-0.1); Basophils Percent Auto 0.7 % (0.2-1.2); Eosinophils Absolute Auto 0.2 K/mm3 (0-0.3); Eosinophils Percent Auto 2.9 % (0-4.4); Hematocrit 37.4 % (37.0-47.0); Immature Granulocyte Absolute 0.03 K/mm3 (0.00-0.031); Immature Granulocyte Percent A 0.4 % (0-0.5); Lymphocytes Absolute Auto 1.17 K/mm3 (0.9-3.2); Lymphocytes Percent Auto 16.3 % (18.3-44.2); Mean Corpuscular HGB Conc 32.1 g/dl (32-36); Mean Corpuscular Hemoglobin 30.6 pg (26-34); Mean Corpuscular Volume 95.4 fl (80-100); Mean Platelet Volume 11.1 fl (7.4-10.4); Monocytes Absolute Auto 0.8 K/mm3 (0.1-0.6); Monocytes Percent Auto 11.1 % (2.6-8.5); Neutrophils Absolute Auto 4.9 K/mm3 (1.3-6.7); Neutrophils Percent Auto 68.6 % (45.5-73.1); Platelet Count Result 222 k/mm3 (150-375); Red Blood Count 3.92 M/mm3 (4.2-5.4); Red Cell Distribution Width 13.7 % (11.5-14.5); White Blood Count 7.2 K/mm3 (4.5-10.0)
[2023-08-23 20:52] LABS: Vitamin D 25 Hydroxy 42.6 ng/mL
[2023-08-23 21:02] LABS: Alanine Aminotransferase 20 U/L (6-35); Albumin Level 4.7 g/dL (3.5-5.1); Alkaline Phosphatase 93 U/L (38-126); Anion Gap 9 mmol/L (8-16); Aspartate Amino Transferase 47 U/L (14-36); Bilirubin,Total 0.4 mg/dL (0.2-1.3); Blood Urea Nitrogen 30 mg/dL (7-17); Calcium 9.9 mg/dL (8.4-10.2); Carbon Dioxide 27 mmol/L (22-30); Chloride 101 mmol/L (98-107); Cholesterol 195 mg/dL (0-200); Estimated Glomerular Filt Rate > 60; Glucose 89 mg/dL (65-110); HDL Direct 42 mg/dL; Potassium 4.2 mmol/L (3.4-5.0); Sodium 137 mmol/L (137-145); Triglycerides 114 mg/dL (<150)
[2023-08-23 21:14] LABS: LDL Cholesterol Direct 107 mg/dL
[2023-08-23 21:54] LABS: Vitamin B12 > 1000.0 pg/mL (239-931)
== END 2023-08-23 12:32 | disposition home or self-care (01) ==
PROVIDERS: PCP Family Medicine; Visit Provider Family Medicine
DX: E78.5 Hyperlipidemia, unspecified (principal); I10 Essential (primary) hypertension; E55.9 Vitamin D deficiency, unspecified; E53.8 Deficiency of other specified B group vitamins; D50.9 Iron deficiency anemia, unspecified
CPT/HCPCS: 36415; 80053; 80061; 82306; 82607; 84443; 85025

== ENCOUNTER 2023-11-01 13:31 | Outpatient (CLI) | payer MEDICARE, SELFPAY ==
[2023-11-01 14:34] LABS: Strep Group A RT-PCR NOT DETECTED (Negative)
[2023-11-01 14:45] LABS: Influenza A QL RT-PCR Negative (Negative); Influenza B QL RT-PCR Negative (Negative); RSV RNA, RT-PCR Negative (Negative); SARS-CoV-2 RNA PCR Negative (Negative)
== END 2023-11-01 13:32 | disposition home or self-care (01) ==
LOC: ANHLAB 13:33
PROVIDERS: PCP Family Medicine; Visit Provider Family Medicine
DX: J06.9 Acute upper respiratory infection, unspecified (principal); Z20.822 Contact with and (suspected) exposure to COVID-19
CPT/HCPCS: 87637; 87651

== ENCOUNTER 2023-11-06 20:35 | Inpatient (IN) | payer MEDICARE, SELFPAY ==
--- NOTE | ~2023-11-06 | XR_ITS ---
EXAMINATION: XR chest 1V portable DATE: 11/06/2023 23:58 INDICATION: Fatigue and weakness TECHNIQUE: frontal view of the chest was obtained. COMPARISON: Chest radiograph dated 02/27/2023 FINDINGS: Retrocardiac opacity consistent with moderate-sized hiatal hernia. Airspace opacities and bronchial w all thickening in the right infrahilar region. No pulmonary edema, pleural effusion or pneumothorax. Heart size is normal. Right rotator cuff arthropathy. IMPRESSION: 1. Opacities in the right infrahilar region which could represent atelectasis, bronchiectasis, bronch itis or pneumonia. 2. Moderate-sized hiatal hernia. Reviewed, dictated and finalized at location A. AVED ROLLER INSPECTOR IMPRESSION: 1. Opacities in the right infrahilar region which could represent atelectasis, bronchiectasis, bronchitis or pneumonia. 2. Moderate-sized hiatal hernia.
[2023-11-06 20:37] VITALS: BP 125/75; PULSE 109; RESP 16; TEMP 36.9; O2SAT 95
--- NOTE | 2023-11-06 20:43 | ECG_ITS ---
Measurements Intervals [place] Rate: 104 P: [place]: 0 QRS: 61 QRSD: 82 T: 1 QT: 298 QTc: 393 Interpretive Statements ATRIAL FIBRILLATION WITH RAPID VENTRICULAR RESPONSE ABNORMAL RHYTHM ECG COMPARED TO ECG 02/27/2023 16:16:25 ATRIAL FIBRILLATION REPLACES SINUS RHYTHM Electronically Signed On 11-07-2023 8:05:41 TRAINING AND DEVELOPMENT COORDINATOR by Chase Valenzuela M.D.
[2023-11-06 21:00] LABS: Basophils Absolute Auto 0.1 K/mm3 (0.0-0.1); Basophils Percent Auto 0.6 % (0.2-1.2); Eosinophils Absolute Auto 0.1 K/mm3 (0-0.3); Eosinophils Percent Auto 0.8 % (0-4.4); Hematocrit 40.6 % (37.0-47.0); Hemoglobin 12.5 g/dL (12.0-15.0); Immature Granulocyte Absolute 0.09 K/mm3 (0.00-0.031); Immature Granulocyte Percent A 0.6 % (0-0.5); Lymphocytes Absolute Auto 0.69 K/mm3 (0.9-3.2); Lymphocytes Percent Auto 4.8 % (18.3-44.2); Mean Corpuscular HGB Conc 30.8 g/dl (32-36); Mean Corpuscular Hemoglobin 30.1 pg (26-34); Mean Corpuscular Volume 97.8 fl (80-100); Mean Platelet Volume 10.6 fl (7.4-10.4); Monocytes Absolute Auto 0.9 K/mm3 (0.1-0.6); Monocytes Percent Auto 6.1 % (2.6-8.5); Neutrophils Absolute Auto 12.5 K/mm3 (1.3-6.7); Neutrophils Percent Auto 87.1 % (45.5-73.1); Platelet Count Result 262 k/mm3 (150-375); Red Blood Count 4.15 M/mm3 (4.2-5.4); Red Cell Distribution Width 13.5 % (11.5-14.5); White Blood Count 14.3 K/mm3 (4.5-10.0)
[2023-11-06 21:12] LABS: Alanine Aminotransferase 39 U/L (6-35); Alkaline Phosphatase 160 U/L (38-126); Anion Gap 14 mmol/L (8-16); Aspartate Amino Transferase 51 U/L (14-36); Bilirubin,Total 0.8 mg/dL (0.2-1.3); Blood Urea Nitrogen 30 mg/dL (7-17); Calcium 9.8 mg/dL (8.4-10.2); Carbon Dioxide 19 mmol/L (22-30); Chloride 100 mmol/L (98-107); Estimated CRCL calculation 36 ml/min; Estimated Glomerular Filt Rate > 60; Glucose 109 mg/dL (65-110); Potassium 4.1 mmol/L (3.4-5.0); Sodium 133 mmol/L (137-145)
[2023-11-06 22:20] LABS: Appearance Urine Cloudy (Clear); Bacteria Urine 1+ /hpf; Bilirubin Urine Negative (Negative); Blood Urine Trace (Negative); Color Urine Yellow (Yellow); Glucose Urine UA Negative (Negative); Hyaline Casts Urine Present /lpf; Ketones Urine 2+ mg/dL (Negative); Leukocyte Esterase Ur 2+ LEU/UL (Negative); Nitrate Urine Negative (Negative); Protein Urine 2+ mg/dL (Negative); RBC Urine 0-2 /hpf (0-2); Specific Grav Ur 1.019 (1.001-1.035); Squamous Epithelial Cell Urine Moderate /hpf (Few); Urobilinogen Urine 0.2 mg/dL (<2.0); WBC Urine 21-50 /hpf
[2023-11-06 22:22] LABS: Add Urine Microscopic? YES
[2023-11-06 22:44] VITALS: PULSE 106
[2023-11-06 22:48] VITALS: O2SAT 97
[2023-11-06 23:06] VITALS: PULSE 97
[2023-11-07] VITALS (12 sets, daily range): BP systolic 117–167; BP diastolic 55–95; PULSE 76–99; RESP 15–22; TEMP 36.7; O2SAT 95–100; BMI 23.0
[2023-11-07] MEDS: ENOXAPARIN 60 MG/0.6 ML SYRINGE SUB-Q (00:08)
[2023-11-07 00:17] LABS: NT Pro B Type Natriuretic Pept 1870 pg/mL (19.9-100); Troponin I < 0.012 ng/mL (0.000-0.034)
[2023-11-07 00:18] LABS: INR 1.2; Prothrombin Time 15.2 Seconds (11.1-14.7)
[2023-11-07 00:19] LABS: Partial Thromboplastin Time 36.8 SECONDS (22.3-36.8)
[2023-11-07 01:05] LABS: Influenza A QL RT-PCR Negative (Negative); Influenza B QL RT-PCR Negative (Negative); RSV RNA, RT-PCR Negative (Negative); SARS-CoV-2 RNA PCR Positive (Negative)
--- NOTE | 2023-11-07 01:24 | ED.WEAKNESS ---
HPI - Weakness General Chief complaint: Weakness <YANELY Mayer Last Filed: 11/07/23 03:43> Stated complaint: not feeling well , weakness <YANELY Mayer Last Filed: 11/07/23 03:43> Time Seen by Provider: 11/06/23 23:19 <Elva Ramirez PA-C - Last Filed: 11/07/23 03:43> History of Present Illness HPI Narrative: 87-year-old female history of hypertension reports in the emergency department with family at bedside for evaluation for generalized fatigue and weakness for the past few days. Patient states she cannot perform her daily activities due to exhaustion. She is reporting mild cough but denies fever or shortness of breath. Denies chest pain, abdominal pain, nausea vomiting, diarrhea, melena or hematochezia. Reports she has not been eating because she does not have the energy to cut herself food. She lives at home alone. Reports intermittent dysuria and urinary frequency. States she has been treated for UTIs frequently in the past. <Elva Ramirez PA-C - Last Filed: 11/07/23 03:43> Related Data Home medications: Home Medications Medication Instructions Recorded Confirmed Lactobacillus acidophilus 250 100 mmu cells PO DAILY 05/22/20 05/11/23 million cell capsule (Probiotic Acidophilus) calcium carbonate 600 mg calcium 1,200 mg PO DAILY 05/22/20 05/11/23 (1,500 mg) tablet (Calcium) multivitamin (One-A-Day Essential 1 tablet PO DAILY 05/22/20 05/11/23 tablet) vitamin B complex (B 1 tablet PO DAILY 07/30/22 05/11/23 Complex-Vitamin B12 tablet) ascorbic acid (vitamin C) 1,000 mg 1 g PO DAILY 02/27/23 05/11/23 tablet famotidine 40 mg tablet 40 mg PO DAILY 02/27/23 05/11/23 hydrocodone 10 mg-acetaminophen 1 tablet PO .5xd PRN 08/23/23 325 mg tablet ibuprofen 400 mg tablet 400 mg PO BID 08/23/23 08/23/23 <YANELY Mayer Last Filed: 11/07/23 03:43> Allergies/Adverse reactions: Allergies Allergy/AdvReac Type Severity Reaction Status Date / Time latex Allergy Mild Other Verified 08/23/23 10:56 Penicillins Allergy Unknown Hives Verified 08/23/23 10:56 Sulfa (Sulfonamide Allergy Unknown Hives Verified 08/23/23 10:56 Antibiotics) fluorescein AdvReac Unknown LIGHTHEADED Verified 08/23/23 10:56 <Elva Ramirez PA-C - Last Filed: 11/07/23 03:43> Review of Systems Review of Systems: CONSTITUTIONAL: Denies fever, chills, or sweats. EYES: Denies visual changes, redness, or discharge. ENT: Denies rhinorrhea, congestion, sore throat, or otalgia. CARDIOVASCULAR: Denies chest pain, palpitations, or edema. RESPIRATORY: Denies cough or dyspnea. GASTROINTESTINAL: Denies abdominal pain, nausea, vomiting, or diarrhea. GENITOURINARY: Denies dysuria or hematuria. SKIN: Denies rash or itching. MUSCULOSKELETAL: Denies back pain, joint pain, or myalgia. NEUROLOGIC: Denies headache, numbness, or weakness. PSYCHIATRIC: Denies anxiety or depression. <Elva Ramirez PA-C - Last Filed: 11/07/23 03:43> [facility] Past Medical History Medical History: Medical History Chronic lower back pain Constipation due to opioid therapy CTS (carpal tunnel syndrome) Duodenal ulcer perforation Fall Gastric ulcer HTN (hypertension) Iron deficiency anemia Osteoarthritis Osteomyelitis of wrist Perforated duodenal ulcer (~2019) Repair Positive occult stool blood test Rhabdomyolysis Rotator cuff tear <Elva Ramirez PA-C - Last Filed: 11/07/23 03:43> Surgical History Surgical History: Surgical History H/O cataract removal with insertion of prosthetic lens H/O colectomy H/O vein stripping H/O: hysterectomy 01/18/2016 History of appendectomy History of carpal tunnel release History of removal of pigmented skin lesion Total knee replacement status (~07/01/20) <Elva Ramirez PA-C - Last Filed: 11/07/23 03:43>
[2023-11-07] MEDS: SODIUM CHLORIDE 0.9% IV 1,000 ML 500 ML IV CONT (01:48)
[2023-11-07 02:28] LABS: Lactic Acid Reflex 0.9 mmol/L (0.7-2.0)
--- NOTE | 2023-11-07 09:28 | PM.IMHP ---
H&P: HPI History of Present Illness Date/Time: 11/07/23 09:28 Chief Complaint: Weakness Narrative: This is an 87-year-old female with a significant past medical history gastric ulcer, hypertension, iron deficiency anemia, osteoarthritis, chronic lower back pain, history of hysterectomy, appendectomy, colectomy who presented to the hospital with complaints of weakness. Patient states that she has noticed that she had increased fatigue and weakness for the past few days and unable to perform ADLs without being completely exhausted. She does live at home still alone and still drives. She does have someone that comes out to the house to help with her cleaning, otherwise she has been independent prior to this illness. Workup in the hospital included a chest x-ray which shown opacities in the right infrahilar region which could represent atelectasis versus pneumonia, moderate size hiatal hernia. EKG shows AFib with RVR with a rate of 104. Initial labs show a white blood cell count of 14.3, sodium 133, bicarb 19, lactic acid 0.9, AST 51, ALT 39, alk-phos 160, proBNP 18 70, troponin negative. UA showed 2+ protein, 2+ ketones, 2+ leukocytes, 21-50 urine wbc's, 1+ bacteria. Respiratory panel was done and showed that patient was COVID positive. Blood and urine cultures are pending. Patient was started on therapeutic Lovenox 60 mg once a day, given 2 L normal saline in the ED, and started on Rocephin. On examination today patient is alert and oriented x3, lying in the bed. Labs today reveal white blood cell count of 13.5, hemoglobin 11.1, hematocrit 34.6, sodium 136, AST 41, alk-phos 154, TSH 0.516. Patient denies any fever, chills, nausea, vomiting, diarrhea, abdominal pain, shortness a breath, chest pain. Plan for Cardiology consult and echocardiogram. Review of Systems Review of Systems: All systems reviewed & are unremarkable except as noted in HPI and below Constitutional: Constitutional: Reports as per HPI and Reports no additional constitutional complaints Eyes: Eyes: Reports as per HPI and Reports no additional eye complaints ENT: Reports system reviewed and no additional complaints, except as documented and Reports as per HPI Cardiovascular: Cardiovascular: Reports as per HPI and Reports no additional cardiovascular complaints Respiratory: Respiratory: Reports as per HPI and Reports no additional respiratory complaints Gastrointestinal: Gastrointestinal: Reports as per HPI and Reports no additional gastrointestinal complaints Genitourinary: Genitourinary: Reports no additional female genitourinary complaints and Reports as per HPI Musculoskeletal: Musculoskeletal: Reports no additional musculoskeletal complaints and Reports as per HPI Integumentary/Breasts: Skin/Breast: Reports system reviewed and no additional complaints, except as docu and Reports as per HPI Neurologic: Reports system reviewed and no additional complaints, except as documented and Reports as per HPI Psychiatric: Psychiatric: Reports no additional psychiatric complaints and Reports as per HPI [facility] Past Medical History Medical History Chronic lower back pain Constipation due to opioid therapy CTS (carpal tunnel syndrome) Duodenal ulcer perforation Fall Gastric ulcer HTN (hypertension) Iron deficiency anemia Osteoarthritis Osteomyelitis of wrist Perforated duodenal ulcer (~2019) Repair Positive occult stool blood test Rhabdomyolysis Rotator cuff tear Surgical History Surgical History H/O cataract removal with insertion of prosthetic lens H/O colectomy H/O vein stripping H/O: hysterectomy 01/18/2016 History of appendectomy History of carpal tunnel release History of removal of pigmented skin lesion Total knee replacement status (~07/01/20) Family History Family History Father Ac
[2023-11-07 10:31] LABS: Basophils Absolute Auto 0.1 K/mm3 (0.0-0.1); Basophils Percent Auto 0.4 % (0.2-1.2); Eosinophils Absolute Auto 0.1 K/mm3 (0-0.3); Eosinophils Percent Auto 0.7 % (0-4.4); Hematocrit 34.6 % (37.0-47.0); Hemoglobin 11.1 g/dL (12.0-15.0); Immature Granulocyte Absolute 0.17 K/mm3 (0.00-0.031); Immature Granulocyte Percent A 1.3 % (0-0.5); Lymphocytes Percent Auto 8.2 % (18.3-44.2); Mean Corpuscular HGB Conc 32.1 g/dl (32-36); Mean Corpuscular Hemoglobin 30.1 pg (26-34); Mean Corpuscular Volume 93.8 fl (80-100); Mean Platelet Volume 10.2 fl (7.4-10.4); Monocytes Absolute Auto 1.2 K/mm3 (0.1-0.6); Monocytes Percent Auto 9.1 % (2.6-8.5); Neutrophils Absolute Auto 10.8 K/mm3 (1.3-6.7); Neutrophils Percent Auto 80.3 % (45.5-73.1); Platelet Count Result 268 k/mm3 (150-375); Red Blood Count 3.69 M/mm3 (4.2-5.4); Red Cell Distribution Width 13.6 % (11.5-14.5); White Blood Count 13.5 K/mm3 (4.5-10.0)
[2023-11-07] MEDS: REMDESIVIR 200 MG/NS 250 ML 200 MG/250 ML BAG 250 MG IVPB (10:36)
[2023-11-07 10:40] LABS: Alanine Aminotransferase 34 U/L (6-35); Albumin Level 3.5 g/dL (3.5-5.1); Alkaline Phosphatase 154 U/L (38-126); Anion Gap 6 mmol/L (8-16); Aspartate Amino Transferase 41 U/L (14-36); Bilirubin,Total 0.5 mg/dL (0.2-1.3); Blood Urea Nitrogen 22 mg/dL (7-17); Calcium 9.1 mg/dL (8.4-10.2); Carbon Dioxide 24 mmol/L (22-30); Chloride 106 mmol/L (98-107); Estimated CRCL calculation 40 ml/min; Estimated Glomerular Filt Rate > 60; Glucose 100 mg/dL (65-110); Potassium 3.8 mmol/L (3.4-5.0); Sodium 136 mmol/L (137-145)
[2023-11-07] MEDS: PANTOPRAZOLE 40 MG TABLET PO (10:45)
[2023-11-07] MEDS: APIXABAN 5 MG TABLET PO ×2 (10:46→20:32)
[2023-11-07 11:11] LABS: Thyroid Stimulating Hormone 0.516 uIU/mL (0.465-4.680)
--- NOTE | 2023-11-07 14:21 | ADMGEN ---
This patient, Sofie Momin, was admitted to [facility] Surg Room 320-01. Patient/family oriented to hospital policies and general routines including ID bracelet, bed and alarms, visiting hours, pain management, procedures, bathroom and other care routines, personal items, smoking policy, room service/diet, and visiting hours. Information on how to activate the Rapid Response Team has been discussed. Patient/Family are encouraged to report perceived risks to care and to ask questions if they do not understand what they are told or what they should do.
[2023-11-07] MEDS: BENZOCAINE/MENTHOL (*BKC) 18 EA LOZENGE 1 LOZENGE PO (18:32)
[2023-11-08] VITALS (7 sets, daily range): BP systolic 134–147; BP diastolic 62–96; PULSE 51–116; RESP 16–98; TEMP 35.8–37.1; O2SAT 20–98
[2023-11-08 06:25] LABS: Basophils Absolute Auto 0.1 K/mm3 (0.0-0.1); Basophils Percent Auto 0.5 % (0.2-1.2); Eosinophils Absolute Auto 0.2 K/mm3 (0-0.3); Eosinophils Percent Auto 1.5 % (0-4.4); Hematocrit 34.6 % (37.0-47.0); Hemoglobin 11.2 g/dL (12.0-15.0); Immature Granulocyte Absolute 0.15 K/mm3 (0.00-0.031); Immature Granulocyte Percent A 1.4 % (0-0.5); Lymphocytes Absolute Auto 1.14 K/mm3 (0.9-3.2); Lymphocytes Percent Auto 10.4 % (18.3-44.2); Mean Corpuscular HGB Conc 32.4 g/dl (32-36); Mean Corpuscular Hemoglobin 30.1 pg (26-34); Mean Platelet Volume 10.6 fl (7.4-10.4); Monocytes Absolute Auto 1.2 K/mm3 (0.1-0.6); Monocytes Percent Auto 11.1 % (2.6-8.5); Neutrophils Absolute Auto 8.2 K/mm3 (1.3-6.7); Neutrophils Percent Auto 75.1 % (45.5-73.1); Platelet Count Result 293 k/mm3 (150-375); Red Blood Count 3.72 M/mm3 (4.2-5.4); Red Cell Distribution Width 13.7 % (11.5-14.5)
[2023-11-08 06:48] LABS: Alanine Aminotransferase 45 U/L (6-35); Albumin Level 3.4 g/dL (3.5-5.1); Alkaline Phosphatase 145 U/L (38-126); Anion Gap 5 mmol/L (8-16); Aspartate Amino Transferase 50 U/L (14-36); Bilirubin,Total 0.4 mg/dL (0.2-1.3); Blood Urea Nitrogen 19 mg/dL (7-17); Carbon Dioxide 27 mmol/L (22-30); Chloride 103 mmol/L (98-107); Estimated CRCL calculation 46 ml/min; Estimated Glomerular Filt Rate > 60; Glucose 112 mg/dL (65-110); Potassium 3.9 mmol/L (3.4-5.0); Sodium 135 mmol/L (137-145)
--- NOTE | 2023-11-08 09:05 | P.PNIM_ITS ---
Progress Note: A&P Assessment and Plan (1) Atrial fibrillation, new onset: Code(s): I48.91 - Unspecified atrial fibrillation Status: Acute Assessment and Plan: 11/07/23: * EKG showing AFib RVR with a rate of 104 * Currently heart rate 81-87 without rate controlling medications * Patient started on therapeutic Lovenox and now transition to Eliquis 5 mg b.i.d. * Cardiology is consulted * Continuous telemetry monitoring * ProBNP 1870 * Troponin negative 11/08/23: * A fib RVR rate controlled * Continue Eliquis * Cardiology consulted * Continuous telemetry monitoring (2) UTI (urinary tract infection): Qualifiers: Hematuria presence: without hematuria Urinary tract infection type: acute cystitis Qualified Code(s): N30.00 - Acute cystitis without hematuria Code(s): N39.0 - Urinary tract infection, site not specified Status: Acute Assessment and Plan: 11/07/23: * UA showing 2+ protein, 2+ ketones, 2+ leukocytes, 21-50 urine wbc's, 1+ bacteria, moderate urine squamous epithelial cells noted * Urine cultures pending * Patient was started on Rocephin 11/08/23: * Urine culture showing E coli on preliminary * Blood cultures are showing no growth today on preliminary * Continue with current treatment plan (3) COVID-19: Code(s): U07.1 - COVID-19 Status: Acute Assessment and Plan: 11/07/23: * Respiratory panel positive for COVID * Patient started on remdesivir and will continue that for a duration of 3 days * Currently on room air, no acute respiratory distress noted. 11/08/23: * No change to current treatment plan (4) Weakness: Code(s): R53.1 - Weakness Status: Acute Assessment and Plan: 11/07/23: * Likely secondary to new onset AFib, COVID, and acute urinary tract infection * PT and OT ordered 11/08/23: * Continue with current treatment plan (5) HTN (hypertension): Qualifiers: Hypertension type: essential hypertension Qualified Code(s): I10 - Esse ntial (primary) hypertension Code(s): I10 - Essential (primary) hypertension Status: Chronic Assessment and Plan: 11/07/23: * Blood pressures ranging 117/55 to 141/59 * Restart home medications 11/08/23: * Blood pressures 139/73-147/75 * Continue with current treatment plan (6) Personal history of peptic ulcer disease: Code(s): Z87.11 - Personal history of peptic ulcer disease Status: Chronic Assessment and Plan: 11/07/23: * Started on Protonix 11/08/23: * No change to current treatment plan Time Spent With Patient Time with patient: Greater than 35 minutes Subjective Date/time seen: 11/08/23 09:05 Interval history: 11/07/23: This is an 87-year-old female with a significant past medical history gastric ulcer, hypertension, iron deficiency anemia, osteoarthritis, chronic lower back pain, history of hysterectomy, appendectomy, colectomy who presented to the hospital with complaints of weakness.? Patient states that she has noticed that she had increased fatigue and weakness for the past few days and unable to perform ADLs without being completely exhausted.? She does live at home still alone and still drives.? She does have someone that comes out to the house to help with her cleaning, otherwise she has been independent prior to this illness.? Workup in the hospital included a chest x-ray which shown opacities in the right infrahilar region which could represent atelectasis versus pneumonia, moderate size hiatal hernia.? EKG shows AFib wit
--- NOTE | 2023-11-08 09:05 | PM.IMPN ---
Progress Note: A&P Assessment and Plan (1) Atrial fibrillation, new onset: Code(s): I48.91 - Unspecified atrial fibrillation Status: Acute Assessment and Plan: 11/07/23: EKG showing AFib RVR with a rate of 104 Currently heart rate 81-87 without rate controlling medications Patient started on therapeutic Lovenox and now transition to Eliquis 5 mg b.i.d. Cardiology is consulted Continuous telemetry monitoring ProBNP 1870 Troponin negative 11/08/23: A fib RVR rate controlled Continue Eliquis Cardiology consulted Continuous telemetry monitoring (2) UTI (urinary tract infection): Qualifiers: Hematuria presence: without hematuria Urinary tract infection type: acute cystitis Qualified Code(s): N30.00 - Acute cystitis without hematuria Code(s): N39.0 - Urinary tract infection, site not specified Status: Acute Assessment and Plan: 11/07/23: UA showing 2+ protein, 2+ ketones, 2+ leukocytes, 21-50 urine wbc's, 1+ bacteria, moderate urine squamous epithelial cells noted Urine cultures pending Patient was started on Rocephin 11/08/23: Urine culture showing E coli on preliminary Blood cultures are showing no growth today on preliminary Continue with current treatment plan (3) COVID-19: Code(s): U07.1 - COVID-19 Status: Acute Assessment and Plan: 11/07/23: Respiratory panel positive for COVID Patient started on remdesivir and will continue that for a duration of 3 days Currently on room air, no acute respiratory distress noted. 11/08/23: No change to current treatment plan (4) Weakness: Code(s): R53.1 - Weakness Status: Acute Assessment and Plan: 11/07/23: Likely secondary to new onset AFib, COVID, and acute urinary tract infection PT and OT ordered 11/08/23: Continue with current treatment plan (5) HTN (hypertension): Qualifiers: Hypertension type: essential hypertension Qualified Code(s): I10 - Essential (primary) hypertension Code(s): I10 - Essential (primary) hypertension Status: Chronic Assessment and Plan: 11/07/23: Blood pressures ranging 117/55 to 141/59 Restart home medications 11/08/23: Blood pressures 139/73-147/75 Continue with current treatment plan (6) Personal history of peptic ulcer disease: Code(s): Z87.11 - Personal history of peptic ulcer disease Status: Chronic Assessment and Plan: 11/07/23: Started on Protonix 11/08/23: No change to current treatment plan Time Spent With Patient Time with patient: Greater than 35 minutes Subjective Date/time seen: 11/08/23 09:05 Interval history: 11/07/23: This is an 87-year-old female with a significant past medical history gastric ulcer, hypertension, iron deficiency anemia, osteoarthritis, chronic lower back pain, history of hysterectomy, appendectomy, colectomy who presented to the hospital with complaints of weakness.? Patient states that she has noticed that she had increased fatigue and weakness for the past few days and unable to perform ADLs without being completely exhausted.? She does live at home still alone and still drives.? She does have someone that comes out to the house to help with her cleaning, otherwise she has been independent prior to this illness.? Workup in the hospital included a chest x-ray which shown opacities in the right infrahilar region which could represent atelectasis versus pneumonia, moderate size hiatal hernia.? EKG shows AFib with RVR with a rate of 104.? Initial labs show a white blood cell count of 14.3, sodium 133, bicarb 19, lactic acid 0.9, AST 51, ALT 39, alk-phos 160, proBNP 18 70, troponin negative.? UA showed 2+ protein, 2+ ketones, 2+ leukocytes, 21-50 urine wbc's, 1+ bacteria.? Respiratory panel was done and showed that patient was COVID positive.? Blood and urine cultures are pending.? Patient was started on therapeutic Lovenox 60 mg once a day, given 2 L norm
[2023-11-08] MEDS: REMDESIVIR 100 MG/NS 250 ML 100 MG/250 ML BAG 250 MG IVPB (10:12)
[2023-11-08] MEDS: ACETAMINOPHEN 325 MG TABLET 650 MG PO (10:13)
[2023-11-08] MEDS: APIXABAN 5 MG TABLET PO ×2 (10:14→21:02)
[2023-11-08] MEDS: PANTOPRAZOLE 40 MG TABLET PO (10:14)
[2023-11-08] MEDS: HYDROcodone/acetaminophen (*CRX) 10-325 MG TABLET 1 TAB PO ×2 (11:43→23:58)
--- NOTE | 2023-11-08 14:05 | PM.CNCAR ---
Assessment and Plan Assessment and plan (1) Atrial fibrillation, new onset: Code(s): I48.91 - Unspecified atrial fibrillation Status: Acute Assessment and Plan: This is a new diagnosis. Chronicity is unknown. I discussed this diagnosis with her including pathophysiology, complications, and management strategy. She is asymptomatic and her heart rate is controlled despite not being on any AV gali blocking agents. She has already been started on anticoagulation with apixaban which is appropriate given her CHADS2 Vasc score of 4 (gender, age, HTN). Echocardiogram has been ordered and will be reviewed. Further recommendations to follow. (2) COVID-19: Code(s): U07.1 - COVID-19 Status: Acute Assessment and Plan: On remdesivir. Management per hospitalist (3) HTN (hypertension): Qualifiers: Hypertension type: essential hypertension Qualified Code(s): I10 - Essential (primary) hypertension Code(s): I10 - Essential (primary) hypertension Status: Chronic Assessment and Plan: Some readings yesterday above goal but pt. states she was not given her home lisinopril. Generally looks close to goal. Can adjust antihypertensives as outpatient if need be. History of Present Illness History of Present Illness Consult date/time: 11/08/23 14:05 Requesting physician: Tracy Coppola APRN Consult reason: atrial fibrillation Reason For Visit: New Onset AFib Narrative: Sofie Momin is an 87 year old female with hypertension, osteoarthritis, and chronic lower back pain. She presents to the hospital with complaints of weakness and a sore throat. She has been found to be COVID positive and she is also in atrial fibrillation which is a new diagnosis. She denies any cardiac history including any history of arrhythmias, congestive heart failure, coronary artery disease. She does have hypertension which has been well controlled with lisinopril for many years. She denies feeling any palpitations, chest pain, or shortness of breath. She denies any syncope or pre-syncope. She is very active for her age and lives independently and does not have a history of falls. At the time of my visit with her she is lying comfortably in bed with no complaints. Review of Systems Review of Systems: All systems reviewed & are unremarkable except as noted in HPI and below PMFSH Past Medical History Medical History Chronic lower back pain Constipation due to opioid therapy CTS (carpal tunnel syndrome) Duodenal ulcer perforation Fall Gastric ulcer HTN (hypertension) Iron deficiency anemia Osteoarthritis Osteomyelitis of wrist Perforated duodenal ulcer (~2019) Repair Positive occult stool blood test Rhabdomyolysis Rotator cuff tear Surgical History Surgical History H/O cataract removal with insertion of prosthetic lens H/O colectomy H/O vein stripping H/O: hysterectomy 01/18/2016 History of appendectomy History of carpal tunnel release History of removal of pigmented skin lesion Total knee replacement status (~07/01/20) Family History Family History Father Acute myocardial infarction Mother Coronary artery disease Social History Social History Social History: Sofie is , she has not children and has no living family. Her 's cousin is her power of business attorney, he lives close by and drives her to her appointments. She lives in her own home. code status DNR Smoking status: Never smoker Alcohol intake: never Substance use: never Substance use type: does not use Do You Feel Safe in your Home?: Yes Lack of Transportation: No Lack of Food: Never True Current Housing: I Have Housing Concerned About Future Housing: No Difficulty Paying
[2023-11-08] MEDS: FERROUS SULFATE 325 MG TABLET DR PO (17:26)
[2023-11-09] VITALS: BP 147/76; PULSE 101; RESP 20; TEMP 36.7; O2SAT 99
--- NOTE | 2023-11-09 | ECHO_ITS ---
Patient Info Name: Sofie Momin Age: 87 years : 1935 Gender: Female Ht: 61 in Wt: 130 lbs BSA: 1.60 m2 HR: 74 bpm BP: 153 / 86 mmHg Heart Rhythm: Sinus Rhythm Technical Quality: Good Exam Date: 11/09/2023 9:40 AM Exam Location: Echo Lab Patient Status: Inpatient Admit Date: 11/08/2023 Staff Ordering Physician: Tracy Coppola APRN Hims Clerk: Buddy Morris RDCS Attending Provider: Kami Navas MD Referring Physician: Abdon BARRETT; Exam Type: CA echo doppler color flow Study Info Indications - new onset a fib Complete two-dimensional, color flow and Doppler transthoracic echocardiogram is performed. Summary 1. Complete two-dimensional, color flow and Doppler transthoracic echocardiogram is performed. 2. Left ventricular chamber dimension is normal. 3. Left ventricular systolic function is normal, estimated at 55-60%. 4. Right ventricular chamber dimension is moderately enlarged. 5. Right ventricular systolic function is normal. 6. Left atrial chamber dimension is mildly enlarged. 7. Right atrial chamber dimension is severely enlarged. 8. There is mild mitral valve regurgitation. 9. There is mild tricuspid valve regurgitation. Left Ventricle Left ventricular chamber dimension is normal. Left ventricular systolic function is normal, estimated at 55-60%. There is no increased left ventricular wall thickness. Right Ventricle Right ventricular chamber dimension is moderately enlarged. Right ventricular systolic function is normal. Left Atria Left atrial chamber dimension is mildly enlarged. Right Atria Right atrial chamber dimension is severely enlarged. Atrial Septum Intact interatrial septum visualized by color flow imaging. Aortic Valve The aortic valve is probable trileaflet. There is no aortic valve stenosis. There is no aortic valve regurgitation. There is mild aortic valve calcification. Pulmonic Valve The pulmonic valve is not well visualized. There is trace pulmonic regurgitation. Mitral Valve There is mild mitral valve regurgitation. Tricuspid Valve There is mild tricuspid valve regurgitation. Pericardium/Pleural There is no pericardial effusion. Inferior Vena Cava Normal inferior vena cava with >50% collapse upon inspiration consistent with normal right atrial pressure, 3 mmHg. Aorta The aortic root size at the sinus of Valsalva is normal. Left Ventricular Outflow Tract Name Value Normal LVOT 2D LVOT Diameter 1.9 cm LVOT Doppler LVOT Peak Gradient 3 mmHg LVOT Mean Gradient 2 mmHg LVOT VTI 14 cm LVOT VTI/AV VTI Ratio 0.8 LVOT Stroke Volume 42 ml LVOT CO 3.0 l/min LVOT CI 1.9 l/min/m2 Pulmonic Valve Name Value Normal RVOT Doppler RVOT Peak Gradient 1 mmHg
[2023-11-09 04:00] VITALS: BP 153/86; PULSE 70; PULSE 74; RESP 20; TEMP 36.5; O2SAT 97
[2023-11-09 07:12] LABS: Basophils Absolute Auto 0.1 K/mm3 (0.0-0.1); Basophils Percent Auto 0.5 % (0.2-1.2); Eosinophils Absolute Auto 0.3 K/mm3 (0-0.3); Eosinophils Percent Auto 2.3 % (0-4.4); Hematocrit 34.7 % (37.0-47.0); Hemoglobin 11.3 g/dL (12.0-15.0); Immature Granulocyte Absolute 0.15 K/mm3 (0.00-0.031); Immature Granulocyte Percent A 1.4 % (0-0.5); Lymphocytes Absolute Auto 1.22 K/mm3 (0.9-3.2); Lymphocytes Percent Auto 11.2 % (18.3-44.2); Mean Corpuscular HGB Conc 32.6 g/dl (32-36); Mean Corpuscular Hemoglobin 30.4 pg (26-34); Mean Corpuscular Volume 93.3 fl (80-100); Mean Platelet Volume 10.8 fl (7.4-10.4); Monocytes Absolute Auto 1.2 K/mm3 (0.1-0.6); Monocytes Percent Auto 10.6 % (2.6-8.5); Neutrophils Absolute Auto 8.1 K/mm3 (1.3-6.7); Platelet Count Result 298 k/mm3 (150-375); Red Blood Count 3.72 M/mm3 (4.2-5.4); Red Cell Distribution Width 13.5 % (11.5-14.5); White Blood Count 10.9 K/mm3 (4.5-10.0)
[2023-11-09 07:28] LABS: Prothrombin Time 24.6 Seconds (11.1-14.7)
[2023-11-09 07:42] LABS: Alanine Aminotransferase 32 U/L (6-35); Albumin Level 3.4 g/dL (3.5-5.1); Alkaline Phosphatase 117 U/L (38-126); Anion Gap 6 mmol/L (8-16); Aspartate Amino Transferase 37 U/L (14-36); Bilirubin,Total 0.5 mg/dL (0.2-1.3); Blood Urea Nitrogen 17 mg/dL (7-17); Calcium 8.7 mg/dL (8.4-10.2); Carbon Dioxide 27 mmol/L (22-30); Chloride 103 mmol/L (98-107); Estimated CRCL calculation 55 ml/min; Estimated Glomerular Filt Rate > 60; Glucose 105 mg/dL (65-110); Potassium 4.4 mmol/L (3.4-5.0); Sodium 136 mmol/L (137-145)
[2023-11-09 08:00] VITALS: BP 132/75; PULSE 103; PULSE 81; RESP 16; TEMP 36.7; O2SAT 96
[2023-11-09] MEDS: FAMOTIDINE 20 MG TABLET 40 MG PO (08:18)
[2023-11-09] MEDS: lisinopriL 20 MG TABLET 40 MG PO (08:18)
[2023-11-09] MEDS: VITAMIN B COMPLEX CAPSULE 1 CAP PO (08:19)
[2023-11-09] MEDS: APIXABAN 5 MG TABLET PO (08:19)
[2023-11-09] MEDS: ACIDOPHILUS/BULGARICUS CHEWABLE TABLET 2 TABLET BY MOUTH (08:19)
[2023-11-09] MEDS: FERROUS SULFATE 325 MG TABLET DR PO ×2 (08:19→16:30)
[2023-11-09] MEDS: MULTIVITAMINS THERAPEUTIC TAB (*BKC) 1 TABLET PO (08:19)
[2023-11-09] MEDS: PANTOPRAZOLE 40 MG TABLET PO (08:19)
[2023-11-09] MEDS: CALCIUM CARBONATE (OSCAL) 500 MG TABLET 1000 MG PO (08:19)
[2023-11-09] MEDS: ASCORBIC ACID 500 MG TABLET 1000 MG PO (08:19)
--- NOTE | 2023-11-09 09:43 | PM.PNCARD ---
Progress Note: A&P Assessment and Plan (1) Atrial fibrillation, new onset: Code(s): I48.91 - Unspecified atrial fibrillation Status: Acute Assessment and Plan: This is a new diagnosis. Chronicity is unknown. She is asymptomatic and her heart rate is controlled despite not being on any AV gali blocking agents. She has already been started on anticoagulation with apixaban which is appropriate given her CHADS2 Vasc score of 4 (gender, age, HTN). Echo is pending. Provided her echo is unremarkable she is okay for discharge today from a cardiac standpoint. (2) COVID-19: Code(s): U07.1 - COVID-19 Status: Acute Assessment and Plan: On remdesivir. Management per hospitalist (3) HTN (hypertension): Qualifiers: Hypertension type: essential hypertension Qualified Code(s): I10 - Essential (primary) hypertension Code(s): I10 - Essential (primary) hypertension Status: Chronic Assessment and Plan: Generally looks close to goal. Can adjust antihypertensives as outpatient if need be. Subjective Date/time seen: 11/09/23 09:43 Interval history: Cardiology follow up for atrial fibrillation Continues to feel well today. No palpitations, shortness of breath, chest pain. Heart rate controlled. Review of Systems Review of Systems: All systems reviewed & are unremarkable except as noted in HPI and below Exam Const: General: comfortable, no acute distress, alert and awake Orientation/consciousness: patient oriented x3 HENMT: Head: normal to inspection Eyes: General: appearance normal, both eyes and all related structures Pupils: Equal, round and reactive pupils present Neck: Neck: normal visual inspection, supple and no JVD Carotids: normal carotid upstroke Resp: Effort & Inspection: normal respiratory effort Auscultation: clear to auscultation bilaterally Cardio: Rate: regular rate Rhythm: abnormal rhythm irregularly irregular Heart sounds: S1 normal heart sound present, S2 normal heart sound present and no murmurs GI: Auscultation: normal bowel sounds Skin: General skin exam: normal color Neuro: General: patient oriented x3 Cranial nerves: Yes Equal, round and reactive pupils present Extrem: General: normal to inspection Other: no edema Psych: Appearance: grossly normal Mental Status: mental status grossly normal Objective Data Vital Signs Vital Signs: Vital Signs - 24 hr 11/08/23 12:00 11/08/23 12:00 11/08/23 16:00 Temperature 37.1 C 36.5 C Pulse Rate 51 L 114 H 86 Respiratory Rate 16 18 Blood Pressure 134/96 H 141/77 H Pulse Oximetry 95 98 Oxygen Delivery 11/08/23 16:00 11/08/23 20:00 11/08/23 20:00 Temperature 36.6 C Pulse Rate 116 H 90 Respiratory Rate 98 H Blood Pressure 134/62 Pulse Oximetry 20 L Oxygen Delivery Room Air 11/08/23 20:00 11/09/23 00:00 11/09/23 00:00 Temperature 36.7 C Pulse Rate 86 101 H 101 H Respiratory Rate 20 Blood Pressure 147/76 H Pulse Oximetry 99 Oxygen Delivery 11/09/23 04:00 11/09/23 04:00 11/09/23 08:00 Temperature 36.5 C 36.7 C Pulse Rate 70 74 81 Respiratory Rate 20 16 Blood Pressure 153/86 H 132/75 Pulse Oximetry 97 96 Oxygen Delivery 11/09/23 08:00 Temperature Pulse Rate Respiratory Rate Blood Pressure Pulse Oximetry Oxygen Delivery Room Air Intake/Output Intake/Output: Intake & Output 11/06/23 11/07/23 11/08/23 11/09/23 23:59 23:59 23:59 23:59 Intake Total 1540 1048 150 Balance 1540 1048 150 Meds/Results Medications: Active Medications Generic Name Dose Route Start Last Admin Trade Name Freq PRN Reason Stop Dose Admin Acetaminophen 650 mg 11/07/23 09:35 11/08/23 10:13 Acetaminophen 325 Mg Tablet PO 650 mg Q4H PRN Administration Mild Pain (1-3) or Fever Hydrocodone Bitart/Acetaminophen 1 tab 11/08/23 10:25 11/08/23 23:58 Hydrocodone/Acetaminophen (*Crx) 10-325 Mg Table
[2023-11-09] MEDS: HYDROcodone/acetaminophen (*CRX) 5-325 MG TABLET 1 TAB PO (10:25)
[2023-11-09] MEDS: REMDESIVIR 100 MG/NS 250 ML 100 MG/250 ML BAG 250 MG IVPB (10:27)
[2023-11-09 12:00] VITALS: BP 133/67; PULSE 101; PULSE 87; RESP 20; TEMP 36.9; O2SAT 97
[2023-11-09 16:00] VITALS: BP 128/60; PULSE 82; PULSE 92; RESP 16; TEMP 36.7; O2SAT 98
--- NOTE | 2023-11-09 16:09 | PM.DS ---
DS: Admitting Diagnosis Discharge Date 11/09/23 Admitting Diagnosis New onset AFib UTI COVID Weakness Hypertension Personal history of peptic ulcer disease DS: Discharge Diagnosis Discharge Diagnosis (1) Atrial fibrillation, new onset: Code(s): I48.91 - Unspecified atrial fibrillation Status: Acute (2) UTI (urinary tract infection): Qualifiers: Hematuria presence: without hematuria Urinary tract infection type: acute cystitis Qualified Code(s): N30.00 - Acute cystitis without hematuria Code(s): N39.0 - Urinary tract infection, site not specified Status: Acute (3) COVID-19: Code(s): U07.1 - COVID-19 Status: Acute (4) Weakness: Code(s): R53.1 - Weakness Status: Acute (5) HTN (hypertension): Qualifiers: Hypertension type: essential hypertension Qualified Code(s): I10 - Essential (primary) hypertension Code(s): I10 - Essential (primary) hypertension Status: Chronic (6) Personal history of peptic ulcer disease: Code(s): Z87.11 - Personal history of peptic ulcer disease Status: Chronic DS: Summary Hospital Course Reason for hospitalization: New onset AFib UTI COVID Weakness Hospital Course: Interval history: 11/07/23: This is an 87-year-old female with a significant past medical history gastric ulcer, hypertension, iron deficiency anemia, osteoarthritis, chronic lower back pain, history of hysterectomy, appendectomy, colectomy who presented to the hospital with complaints of weakness.? Patient states that she has noticed that she had increased fatigue and weakness for the past few days and unable to perform ADLs without being completely exhausted.? She does live at home still alone and still drives.? She does have someone that comes out to the house to help with her cleaning, otherwise she has been independent prior to this illness.? Workup in the hospital included a chest x-ray which shown opacities in the right infrahilar region which could represent atelectasis versus pneumonia, moderate size hiatal hernia.? EKG shows AFib with RVR with a rate of 104.? Initial labs show a white blood cell count of 14.3, sodium 133, bicarb 19, lactic acid 0.9, AST 51, ALT 39, alk-phos 160, proBNP 18 70, troponin negative.? UA showed 2+ protein, 2+ ketones, 2+ leukocytes, 21-50 urine wbc's, 1+ bacteria.? Respiratory panel was done and showed that patient was COVID positive.? Blood and urine cultures are pending.? Patient was started on therapeutic Lovenox 60 mg once a day, given 2 L normal saline in the ED, and started on Rocephin. On examination today patient is alert and oriented x3, lying in the bed.? Labs today reveal white blood cell count of 13.5, hemoglobin 11.1, hematocrit 34.6, sodium 136, AST 41, alk-phos 154, TSH 0.516. Patient denies any fever, chills, nausea, vomiting, diarrhea, abdominal pain, shortness a breath, chest pain.? Plan for Cardiology consult and echocardiogram. 11/08/23: Labs today reveal 11.0, RBC 3.72, Hgb 11.2, Hct 34.6, Na+ 135, BUN 19, Creatinine 0.60, BG ranging 100-112, AST 50, ALT 45, Alk phos 145, Albumin 3.4. Patient remains in A fib rate controlled in the 80's-90's.? Blood culture showing no growth today on preliminary.? Urine culture showing E coli on preliminary read.? Continue with Rocephin and remdesivir.? She denies any new complaints today. 11/09/2023: Labs today show a white blood cell count of 10.9, INR 2.0, PTT 24.6, sodium 136, AST 37, albumin 3.4. She has no new complaints today. Blood culture showing no growth to date. Urine culture showing E coli on final read. Antibiotics changed to cefdinir. Patient is stable for discharge at this time. [facility] She will need to follow up with Cardiology in a couple weeks. Final diagnosis: New onset AFib, acute urinary tract infection, COVID Status at Discharge Cognitive/behavioral status at discharge: Alert oriented x4 Functional status at d
--- NOTE | 2023-11-09 16:21 | PCCCNOTE ---
On 11/09/23, the student, Payton Banegas, provided care and completed [facility] documentation on this patient. I have reviewed the student's documentation and agree with the findings.
== END 2023-11-09 18:30 | disposition home or self-care (01) | DRG 178 ==
LOC: ANHED 11-07 01:31 → ANH3MEDSUR 11-07 02:06
PROVIDERS: Student in an Organized Health Care Education/Training Program; Admitting Provider Internal Medicine; Emergency Provider Physician Assistant; PCP Family Medicine; Visit Provider Nurse Practitioner Acute Care
DX: U07.1 COVID-19 (principal); N39.0 Urinary tract infection, site not specified; I48.91 Unspecified atrial fibrillation; I10 Essential (primary) hypertension; D50.9 Iron deficiency anemia, unspecified; K59.03 Drug induced constipation; T40.2X5A Adverse effect of other opioids, initial encounter; B96.20 Unspecified Escherichia coli [E. coli] as the cause of diseases classified elsewhere; M19.90 Unspecified osteoarthritis, unspecified site; M54.59 Other low back pain; G89.29 Other chronic pain; Z96.659 Presence of unspecified artificial knee joint; Z87.11 Personal history of peptic ulcer disease
CPT/HCPCS: 36415; 71045; 80048; 80053; 80076; 81001; 83605; 83880; 84443; 84484; 85025; 85610; 85730; 87040; 87086; 87186; 87637; 93005; 93306; 96361; 96365; 96367; 96372; 97161; 97165; 97530; 97535; 99285; A9270; G0378; J0248; J0696; J1650; J7030

== ENCOUNTER 2023-11-23 13:25 | Outpatient (CLI) | payer MEDICARE, SELFPAY | END 2023-11-23 13:26 | disposition home or self-care (01) | LOC: ANHGOSHLAB 13:27 | PROVIDERS: PCP Family Medicine; Visit Provider Family Medicine | DX: N39.0 Urinary tract infection, site not specified (principal) | CPT/HCPCS: 87086 ==

== ENCOUNTER 2024-01-06 14:06 | Outpatient (CLI) | payer MEDICARE, SELFPAY ==
[2024-01-06 14:25] LABS: Basophils Percent Auto 0.5 % (0.2-1.2); Eosinophils Absolute Auto 0.2 K/mm3 (0-0.3); Eosinophils Percent Auto 2.1 % (0-4.4); Hematocrit 38.7 % (37.0-47.0); Hemoglobin 12.7 g/dL (12.0-15.0); Immature Granulocyte Absolute 0.03 K/mm3 (0.00-0.031); Immature Granulocyte Percent A 0.4 % (0-0.5); Lymphocytes Absolute Auto 1.21 K/mm3 (0.9-3.2); Lymphocytes Percent Auto 14.4 % (18.3-44.2); Mean Corpuscular HGB Conc 32.8 g/dl (32-36); Mean Corpuscular Hemoglobin 30.6 pg (26-34); Mean Corpuscular Volume 93.3 fl (80-100); Mean Platelet Volume 10.3 fl (7.4-10.4); Monocytes Absolute Auto 0.9 K/mm3 (0.1-0.6); Monocytes Percent Auto 10.2 % (2.6-8.5); Neutrophils Absolute Auto 6.1 K/mm3 (1.3-6.7); Neutrophils Percent Auto 72.4 % (45.5-73.1); Platelet Count Result 216 k/mm3 (150-375); Red Blood Count 4.15 M/mm3 (4.2-5.4); Red Cell Distribution Width 13.6 % (11.5-14.5); White Blood Count 8.4 K/mm3 (4.5-10.0)
[2024-01-06 18:21] LABS: Iron 71 ug/dL (37-170)
[2024-01-06 18:38] LABS: Percent Iron Saturation 21 % (20-50)
[2024-01-06 20:21] LABS: Folic Acid > 20.0 ng/mL (2.76->20); Vitamin B12 > 1000.0 pg/mL (239-931)
== END 2024-01-06 14:07 | disposition home or self-care (01) ==
PROVIDERS: PCP Family Medicine; Visit Provider Internal Medicine Hematology & Oncology
DX: D64.9 Anemia, unspecified (principal)
CPT/HCPCS: 36415; 82607; 82728; 82746; 83540; 83550; 85025

== ENCOUNTER 2024-02-06 21:21 | Inpatient (IN) | payer MEDICARE, SELFPAY ==
--- NOTE | ~2024-02-06 | CT_ITS ---
CT of the Abdomen and Pelvis: Indication: GI bleed Technique: 2.5 mm axial scans were obtained through the abdomen and pelvis following intravenous adm inistration of 100 cc of Omnipaque 350. Dose reduction technique was used on this scan by utilizing a utomated exposure control and iterative reconstruction technique. The dose-length product (DLP) was 2 79.09 mGy-cm. Findings: Scans through the lung bases demonstrate large hiatal hernia. There is left basilar atelec tatic change. The liver, spleen, pancreas, gallbladder, adrenals and kidneys are within normal limits. There are at herosclerotic calcifications of the aorta. No lymphadenopathy. No bowel obstruction or bowel wall thickening. There is no evidence to suggest acute appendicitis. Images through the pelvis were performed. Urinary bladder unremarkable. No adnexal mass seen. No asci landon. Since degenerative spondylosis of the spine noted. Impression: Large hiatal hernia. No other significant abnormality seen. Reviewed, dictated and finalized at [facility]. Impression: Large hiatal hernia. No other significant abnormality seen.
[2024-02-06 21:22] VITALS: BP 161/73; PULSE 76; RESP 16; TEMP 36.5; O2SAT 98
[2024-02-06 22:01] VITALS: BP 119/58; PULSE 75
[2024-02-06 22:27] VITALS: BP 141/78; PULSE 72; RESP 9; O2SAT 100
[2024-02-06 22:31] VITALS: BP 121/86; PULSE 74; RESP 15; O2SAT 99
[2024-02-06 22:46] VITALS: BP 126/84; PULSE 69; RESP 14; O2SAT 98
[2024-02-06 22:47] LABS: Basophils Percent Auto 0.5 % (0.2-1.2); Eosinophils Absolute Auto 0.2 K/mm3 (0-0.3); Eosinophils Percent Auto 3.2 % (0-4.4); Hematocrit 34.5 % (37.0-47.0); Hemoglobin 11.2 g/dL (12.0-15.0); Immature Granulocyte Absolute 0.02 K/mm3 (0.00-0.031); Immature Granulocyte Percent A 0.3 % (0-0.5); Lymphocytes Absolute Auto 1.21 K/mm3 (0.9-3.2); Lymphocytes Percent Auto 20.6 % (18.3-44.2); Mean Corpuscular HGB Conc 32.5 g/dl (32-36); Mean Corpuscular Hemoglobin 30.9 pg (26-34); Mean Corpuscular Volume 95.3 fl (80-100); Mean Platelet Volume 10.2 fl (7.4-10.4); Monocytes Absolute Auto 0.6 K/mm3 (0.1-0.6); Monocytes Percent Auto 10.7 % (2.6-8.5); Neutrophils Absolute Auto 3.8 K/mm3 (1.3-6.7); Neutrophils Percent Auto 64.7 % (45.5-73.1); Platelet Count Result 191 k/mm3 (150-375); Red Blood Count 3.62 M/mm3 (4.2-5.4); Red Cell Distribution Width 14.4 % (11.5-14.5); White Blood Count 5.9 K/mm3 (4.5-10.0)
[2024-02-06 22:58] LABS: Alanine Aminotransferase 23 U/L (6-35); Albumin Level 4.3 g/dL (3.5-5.1); Alkaline Phosphatase 81 U/L (38-126); Anion Gap 6 mmol/L (4-12); Aspartate Amino Transferase 34 U/L (14-36); Bilirubin,Total 0.3 mg/dL (0.2-1.3); Blood Urea Nitrogen 22 mg/dL (7-17); Calcium 9.9 mg/dL (8.4-10.2); Carbon Dioxide 29 mmol/L (22-30); Chloride 104 mmol/L (98-107); Estimated CRCL calculation 34 ml/min; Estimated Glomerular Filt Rate > 60; Glucose 92 mg/dL (65-110); Potassium 4.6 mmol/L (3.4-5.0); Sodium 139 mmol/L (137-145)
[2024-02-06 22:59] LABS: INR 1.3; Prothrombin Time 17.1 Seconds (11.1-14.7)
[2024-02-06 23:00] LABS: Partial Thromboplastin Time 32.1 Seconds (22.3-36.8)
[2024-02-06 23:16] VITALS: BP 162/102; PULSE 99; RESP 21; O2SAT 96
--- NOTE | 2024-02-06 23:17 | ED.GIBLEED ---
HPI - GI Bleed General Chief complaint: GI Bleed <Akanksha Aguilar PA-C - Last Filed: 02/07/24 17:05> Stated complaint: blood in stool <Akanksha Aguilar PA-C - Last Filed: 02/07/24 17:05> Time Seen by Provider: 02/06/24 22:50 <YANELY Milner Last Filed: 02/07/24 17:05> Source: patient <YANELY Milner Last Filed: 02/07/24 17:05> Mode of arrival: ambulatory <YANELY Milner Last Filed: 02/07/24 17:05> Limitations: no limitations <YANELY Milner Last Filed: 02/07/24 17:05> History of Present Illness HPI Narrative: This is a 88 year old female that presents to the ER for bright red blood per rectum. Reports she has been passing bright red blood the last couple of hours. Has filled a feminine pad. Reports recently being started on Eliquis for new onset atrial fibrillation. 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 Reports her stool is black, but this is not new due to her taking Iron for her history of anemia. Reports history of gastric ulcers. Denies fever, abdominal pain, vomiting or diarrhea. <Akanksha Aguilar PA-C - Last Filed: 02/07/24 17:05> Related Data Home medications: Home Medications Medication Instructions Recorded Confirmed Lactobacillus acidophilus 250 100 mmu cells PO 1200 05/22/20 02/07/24 million cell capsule (Probiotic Acidophilus) calcium carbonate (Calcium 600) 1,200 mg PO DAILY 05/22/20 02/07/24 multivitamin (One-A-Day Essential 1 tablet PO DAILY 05/22/20 02/07/24 tablet) vitamin B complex (B 1 tablet PO DAILY 07/30/22 02/07/24 Complex-Vitamin B12 tablet) ascorbic acid (vitamin C) 1,000 mg 1 g PO DAILY 02/27/23 02/07/24 tablet hydrocodone 10 mg-acetaminophen 1 tablet PO USEASDIRECTD 11/23/23 02/07/24 325 mg tablet ferrous sulfate 325 mg (65 mg 325 mg PO DAILY 02/07/24 02/07/24 iron) tablet,delayed release lisinopril 40 mg tablet 40 mg PO HS 02/07/24 02/07/24 <Akanksha Aguilar PA-C - Last Filed: 02/07/24 17:05> Allergies/Adverse reactions: Allergies Allergy/AdvReac Type Severity Reaction Status Date / Time Penicillins Allergy Intermediate Hives Verified 02/07/24 08:03 Sulfa (Sulfonamide Allergy Intermediate Hives Verified 02/07/24 08:03 Antibiotics) fluorescein AdvReac Severe LIGHTHEADED Verified 02/07/24 08:03 latex AdvReac Mild Hives Verified 02/07/24 08:03 <Akanksha Aguilar PA-C - Last Filed: 02/07/24 17:05> Review of Systems Review of Systems: CONSTITUTIONAL: Denies fever GASTROINTESTINAL: Denies abdominal pain, nausea, vomiting, or diarrhea. <Akanksha Aguilar PA-C - Last Filed: 02/07/24 17:05> All systems reviewed & are unremarkable except as noted in HPI and below <Akanksha Aguilar PA-C - Last Filed: 02/07/24 17:05> [facility] Past Medical History Medical History: Medical History Chronic lower back pain (~11/07/23) Constipation due to opioid therapy COVID-19 (~11/07/23) CTS (carpal tunnel syndrome) Duodenal ulcer perforation Fall Gastric ulcer HTN (hypertension) Iron deficiency anemia Osteoarthritis Osteomyelitis of wrist Paroxysmal atrial fibrillation Perforated duodenal ulcer (~2019) Repair Positive occult stool blood test Rhabdomyolysis Rotator cuff tear <Akanksha Aguilar PA-C - Last Filed: 02/07/24 17:05> Surgical History Surgical History: Surgical History H/O cataract removal with insertion of prosthetic lens H/O colectomy H/O vein stripping H/O: hysterectomy 01/18/2016 History of appendectomy History of carpal tunnel release History of removal of pigmented skin lesion Total knee replacement status (~07/01/20) <Akanksha Aguilar PA-C - Last Filed: 02/07/24 17:05> Family History Family History: Family History Father Acute myocardial infarction
[2024-02-06] MEDS: PANTOPRAZOLE SODIUM IV 40 MG VIAL IV PUSH (23:22)
[2024-02-07] VITALS (9 sets, daily range): BP systolic 114–149; BP diastolic 54–85; PULSE 73–107; RESP 11–20; TEMP 36.1–36.6; O2SAT 94–100; BMI 25.8
--- NOTE | 2024-02-07 06:48 | PM.IMHP ---
H&P: HPI History of Present Illness Date/Time: 02/07/24 06:48 Chief Complaint: GI bleed Narrative: 87 year old female with history of hypertension, history of gastric ulcer, afib, iron deficiency anemia, vitamin-D deficiency, osteoarthritis with chronic back pain and multiple joint pain, hx of hysterectomy, appendectomy, colectomy who presented to the hospital for bleeding per rectum. Patient recently admitted 11/08-11/09/23 for new onset afib. She was evaluated by cardiology at that time. Per cardiology consult note 11/08 patient was asymptomatic despite not being on any AV gali blocking agents and started on Eliquis (CHADS Vasc score 4 (gender, age, HTN). She states that the bleeding began yesterday afternoon and started as a dark black diarrhea.This has since changed to bright red blood seen in the toilet with noted black blood on pads. Patient is on iron supplementation which can darken stools. She notes that prior to symptom onset she had been constipated for several days and took multiple laxatives after straining for BMs. She endorses weakness, but denies lightheadedness, dizziness and shortness of breath. GI consulted and plan for EGD/Colonoscopy 02/07. Will hold patients eliquis at this time and contact cardiology following the scopes to further discuss anticoagulation plan. ED workup: CBC without leukocytosis and mild anemia H/H 11.2/34.5 (appears to be at baseline). PT 17.1, INR 1.3, APTT 32.1. CMP unremarkable. Abdomen/pelvis CT: large hiatal hernia, no other significant abnormalities. GI consulted for GI bleed. Review of Systems Review of Systems: All systems reviewed & are unremarkable except as noted in HPI and below PMFSH Past Medical History Medical History Chronic lower back pain (~11/07/23) Constipation due to opioid therapy COVID-19 (~11/07/23) CTS (carpal tunnel syndrome) Duodenal ulcer perforation Fall Gastric ulcer HTN (hypertension) Iron deficiency anemia Osteoarthritis Osteomyelitis of wrist Paroxysmal atrial fibrillation Perforated duodenal ulcer (~2019) Repair Positive occult stool blood test Rhabdomyolysis Rotator cuff tear Surgical History Surgical History H/O cataract removal with insertion of prosthetic lens H/O colectomy H/O vein stripping H/O: hysterectomy 01/18/2016 History of appendectomy History of carpal tunnel release History of removal of pigmented skin lesion Total knee replacement status (~07/01/20) Family History Family History Father Acute myocardial infarction Mother Coronary artery disease Social History Social History Social History: Sofie is , she has not children and has no living family. Her 's cousin is her power of supervisor diagnostic, he lives close by and drives her to her appointments. She lives in her own home. code status DNR Smoking status: Never smoker Alcohol intake: never Substance use: never Substance use type: does not use Do You Feel Safe in your Home?: Yes Lack of Transportation: No Lack of Food: Never True Current Housing: I Have Housing Concerned About Future Housing: No Difficulty Paying Gas/Electric Bills: No Difficulty Paying for Meds: No Currently Unemployed: No Education: Decline to Answer Difficulty w/ Childcare or Family Care: No Living arrangements: alone Occupation/Education: retired Gender identity (if verbalized by the patient): Female Spiritual care concerns: No Agree to blood products: Yes Meds Home Medications and Allergies Home Medications Medication Instructions Recorded Confirmed Type Lactobacillus acidophilus 250 100 mmu cells PO 1200 05/22/20 02/07/24 History million cell capsule (Probiotic Acidophilus) calcium carbonate (Calcium 600)
--- NOTE | 2024-02-07 08:01 | ADMGEN ---
This patient, Sofie Momin, was admitted to [facility] Surg Room 321-02. Patient/family oriented to hospital policies and general routines including ID bracelet, bed and alarms, visiting hours, pain management, procedures, bathroom and other care routines, personal items, smoking policy, room service/diet, and visiting hours. Information on how to activate the Rapid Response Team has been discussed. Patient/Family are encouraged to report perceived risks to care and to ask questions if they do not understand what they are told or what they should do.
--- NOTE | 2024-02-07 08:39 | P.CONGI_ITS ---
I, Chance Castaneda MD, have provided a substantive portion of the care of this patient and discussed the patient with my Nurse Practitioner. I have reviewed any new relevant radiographic and laboratory results including medications. I agree with her documentation as noted below.?I personally performed the medical decision making and much of the history and exam for this encounter. briefly, she has chronic anemia with hgb 12, perforated duodenal ulcer few years ago, opiod constipation, recently with afib now on blood thinners here with new onset of hematochezia, hgb 11. Plan is to proceed with egd and colonoscopy since she will need to continue with anticoagulation, also known history of ulcer. She is agreeable. Assessment and Plan Assessment and plan (1) GI bleed: Qualifiers: GI bleed type/associated pathology: unspecified gastrointestinal hemorrhage type Qualified Code(s): K92.2 - Gastrointestinal hemorrhage, unspecified Code(s): K92.2 - Gastrointestinal hemorrhage, unspecified Status: Acute (2) Hematochezia: Code(s): K92.1 - Melena Status: Acute (3) Chronic anemia: Code(s): D64.9 - Anemia, unspecified Status: Acute (4) Hiatal hernia: Code(s): K44.9 - Diaphragmatic hernia without obstruction or gangrene Status: Acute (5) Chronic constipation: Code(s): K59.09 - Other constipation Status: Acute Plan 1) Lower GI bleed/hematochezia/hemorrhoids/hiatal hernia: Last colonoscopy 11/08/2018 noted diverticulosis without perf or bleed and internal hemorrhoids. Patient with a Hx of gastric ulcers and Hx of duodenal ulcer perforation in 2016 S/P repair. Per patient last EGD if ever was > [address] today showed large hiatal hernia but was o/w normal. On admission Hgb 11, Hct 35, platelets 191 and INR 1.3. Patient was recently admitted November 08- for new onset A- Fib and was started on Eliquis. Presented to the ER today with complaints of BRBPR. Patient states that yesterday evening she had a large amount of dark red blood per rectum and today is having BRBPR. 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 Last known dose of Eliquis was yesterday AM, patient unable to say if she took her evening dose. Per patient since starting Eliquis her stomach hasn't felt right . * Given Hx of duodenal ulcer perf requiring surgery and new onset A-Fib requiring terminal makeup operator anticoagulation, we will plan for an EGD and colonoscopy tomorrow * Clear liquid diet today * NPO after midnight * Obtain consent for EGD and colonoscopy tomorrow * Hold anticoags and care with NSAIDs and aspirin * Bowel prep to start this evening * Further recs to follow endoscopy 2) Chronic normocytic anemia: Patient with chronic SHAVON. Labs in December showed Hgb 13 and normal iron panel, B12 and folate. 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 Patient seeing hematology every 6 months. * Primary care team to continue monitoring H/H and transfuse as needed to keep Hgb > 7 3) Chronic constipation: Patient on hydrocodone which is likely contributing to her constipation. Prior to admission the patient states it had been 7 days since her last BM and she took a couple laxatives and after having a straining BM is when she started having rectal bleeding. She has tried Miralax without improvement. Tried Movantik samples which helped but she didn't like how it w orked . Admits to going multiple days without a BM and typically has small pebble like stools that require significant straining. * Following colonoscopy start Amitizia 8 mcg BID and continue as outpatient * Patient to follow up as out
--- NOTE | 2024-02-07 08:39 | WPDGICN ---
Assessment and Plan Assessment and plan (1) GI bleed: Qualifiers: GI bleed type/associated pathology: unspecified gastrointestinal hemorrhage type Qualified Code(s): K92.2 - Gastrointestinal hemorrhage, unspecified Code(s): K92.2 - Gastrointestinal hemorrhage, unspecified Status: Acute (2) Hematochezia: Code(s): K92.1 - Melena Status: Acute (3) Chronic anemia: Code(s): D64.9 - Anemia, unspecified Status: Acute (4) Hiatal hernia: Code(s): K44.9 - Diaphragmatic hernia without obstruction or gangrene Status: Acute (5) Chronic constipation: Code(s): K59.09 - Other constipation Status: Acute Plan 1) Lower GI bleed/hematochezia/hemorrhoids/hiatal hernia: Last colonoscopy 11/08/2018 noted diverticulosis without perf or bleed and internal hemorrhoids. Patient with a Hx of gastric ulcers and Hx of duodenal ulcer perforation in 2016 S/P repair. Per patient last EGD if ever was > [address] today showed large hiatal hernia but was o/w normal. On admission Hgb 11, Hct 35, platelets 191 and INR 1.3. Patient was recently admitted November 08- for new onset A-Fib and was started on Eliquis. Presented to the ER today with complaints of BRBPR. Patient states that yesterday evening she had a large amount of dark red blood per rectum and today is having BRBPR. INSOLE BUFFER patient with chronic dark stools secondary to PO iron. Last known dose of Eliquis was yesterday AM, patient unable to say if she took her evening dose. Per patient since starting Eliquis her stomach hasn't felt right . 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 Labs in December showed Hgb 13 and normal iron panel, B12 and folate. Patient on oral iron INSOLE BUFFER. Patient seeing hematology every 6 months. Primary care team to continue monitoring H/H and transfuse as needed to keep Hgb > 7 3) Chronic constipation: Patient on hydrocodone which is likely contributing to her constipation. Prior to admission the patient states it had been 7 days since her last BM and she took a couple laxatives and after having a straining BM is when she started having rectal bleeding. She has tried Miralax without improvement. Tried Movantik samples which helped but she didn't like how it worked . Admits to going multiple days without a BM and typically has small pebble like stools that require significant straining. Following colonoscopy start Amitizia 8 mcg BID and continue as outpatient Patient to follow up as outpatient for management and dose adjustments if needed Thank you very much for allowing me to share in the care of this very nice patient. GI Consult Note Consult date/time: 02/07/24 08:39 Reason for consult: GI bleed HPI: Sofie Momin is a 88 year old female with past medical/surgical Hx of hypertension, history of gastric ulcer, history of perforated duodenal ulcer s/p omental patch [place] [address] Marley, iron deficiency anemia, vitamin-D deficiency, osteoarthritis with chronic back pain and multiple joint pain, hx of hysterectomy, appendectomy, and colectomy who presented to the ER today with complaints of bright red blood per rectum. GI consulted for GI bleed. Patient was recently admitted November 08- for new onset A-Fib and was started on Eliquis. Patient states that prior to her admission she had went 7 days without a BM so she took a few laxatives and after a straining BM she started having a large amount of dark red blood per rectum. Today she is having BRBPR. She is going multiple days without a BM and
[2024-02-07] MEDS: CALCIUM CARBONATE (OSCAL) 500 MG TABLET 1000 MG PO (10:13)
[2024-02-07] MEDS: BISACODYL 5 MG TABLET EC 20 MG PO (10:13)
[2024-02-07] MEDS: FERROUS SULFATE 325 MG TABLET DR PO (10:14)
[2024-02-07] MEDS: VITAMIN B COMPLEX CAPSULE 1 CAP PO (10:14)
[2024-02-07] MEDS: ACIDOPHILUS/BULGARICUS CHEWABLE TABLET 1 TABLET BY MOUTH (10:14)
[2024-02-07] MEDS: MULTIVITAMINS THERAPEUTIC TAB (*BKC) 1 TABLET PO (10:14)
[2024-02-07] MEDS: ASCORBIC ACID 500 MG TABLET 1000 MG PO (10:14)
[2024-02-07] MEDS: polyethylene glycoL 3350 238 GM BOTTLE PO (16:39)
[2024-02-07] MEDS: lisinopriL 20 MG TABLET 40 MG PO (20:21)
[2024-02-08] VITALS (8 sets, daily range): BP systolic 98–142; BP diastolic 50–67; PULSE 73–100; RESP 17–20; TEMP 35.8–36.4; O2SAT 92–100
[2024-02-08] MEDS: MAGNESIUM CITRATE 300 ML BTL PO (02:05)
[2024-02-08 06:43] LABS: Basophils Percent Auto 0.3 % (0.2-1.2); Eosinophils Absolute Auto 0.1 K/mm3 (0-0.3); Eosinophils Percent Auto 1.1 % (0-4.4); Hemoglobin 9.8 g/dL (12.0-15.0); Immature Granulocyte Absolute 0.03 K/mm3 (0.00-0.031); Immature Granulocyte Percent A 0.4 % (0-0.5); Lymphocytes Absolute Auto 1.24 K/mm3 (0.9-3.2); Lymphocytes Percent Auto 17.5 % (18.3-44.2); Mean Corpuscular HGB Conc 31.6 g/dl (32-36); Mean Corpuscular Hemoglobin 30.3 pg (26-34); Mean Platelet Volume 10.5 fl (7.4-10.4); Monocytes Absolute Auto 0.7 K/mm3 (0.1-0.6); Monocytes Percent Auto 10.5 % (2.6-8.5); Neutrophils Percent Auto 70.2 % (45.5-73.1); Platelet Count Result 189 k/mm3 (150-375); Red Blood Count 3.23 M/mm3 (4.2-5.4); Red Cell Distribution Width 14.3 % (11.5-14.5); White Blood Count 7.1 K/mm3 (4.5-10.0)
[2024-02-08 07:31] LABS: Alanine Aminotransferase 20 U/L (6-35); Albumin Level 3.8 g/dL (3.5-5.1); Alkaline Phosphatase 67 U/L (38-126); Anion Gap 7 mmol/L (4-12); Aspartate Amino Transferase 27 U/L (14-36); Bilirubin,Total 0.5 mg/dL (0.2-1.3); Blood Urea Nitrogen 11 mg/dL (7-17); Calcium 9.2 mg/dL (8.4-10.2); Carbon Dioxide 24 mmol/L (22-30); Chloride 104 mmol/L (98-107); Estimated CRCL calculation 45 ml/min; Estimated Glomerular Filt Rate > 60; Glucose 107 mg/dL (65-110); Potassium 3.8 mmol/L (3.4-5.0); Sodium 135 mmol/L (137-145)
--- NOTE | 2024-02-08 07:45 | PM.IMPN ---
Progress Note: A&P Assessment and Plan (1) Acute GI bleeding: Code(s): K92.2 - Gastrointestinal hemorrhage, unspecified Status: Acute Assessment and Plan: Last colonoscopy 11/08/2018: multiple diverticula without active bleeding and uncomplicated internal hemorrhoids. History of duodenal ulcer with perforation in 2016 s/p repair with Dr. Marley. Patient recently admitted 11/08-11/09/23 for new onset afib and started on Eliquis (CHADS Vasc score 4 (gender, age, HTN). Patient states bleeding has resolved. - CT abdomen/pelvis: large hiatal hernia, no other significant abnormalities. - GI following. - Continue holding Eliquis for 5 days at least per GI recommendations - Colonoscopy: Multiple diverticula had stigmata of previous bleeding with hematin, no more active bleeding. 6 mm polyp excised. - EGD: Hiatal hernia, otherwise unremarkable. - Advance diet as tolerated - monitor labs (2) Chronic anemia: Code(s): D64.9 - Anemia, unspecified Status: Acute Assessment and Plan: Chronic iron deficiency anemia on iron supplementation. H/H 11.2/34.5 on admission. Appears to be around patients baseline. Per patient she follows with hematology every 6 months. 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 Patient notes that prior to admission she took several laxatives due to multiple days without BM and constant straining. - Per GI patient will start Amitizia 8 mcg BID following the colonoscopy (4) Paroxysmal atrial fibrillation: Code(s): I48.0 - Paroxysmal atrial fibrillation Status: Acute Assessment and Plan: Patient recently admitted 11/08-11/09/23 for new onset afib. She was evaluated by cardiology at that time. Per cardiology consult note patient was asymptomatic despite not being on any AV gali blocking agents and started on Eliquis (CHADS Vasc score 4 (gender, age, HTN). - Holding eliquis - Vitals remain stable - Monitor - Will contact cardiology following EGD/Colonoscopy in regards to anticoagulation (5) HTN (hypertension): Qualifiers: Hypertension type: essential hypertension Qualified Code(s): I10 - Essential (primary) hypertension Code(s): I10 - Essential (primary) hypertension Status: Chronic Assessment and Plan: Chronic. Stable on home medications. - Continue lisinopril 40 mg daily - Monitor Time Spent With Patient Time with patient: 25 - 35 minutes Subjective Date/time seen: 02/08/24 07:45 Interval history: 87 year old female with history of hypertension, history of gastric ulcer, afib, iron deficiency anemia, vitamin-D deficiency, osteoarthritis with chronic back pain and multiple joint pain, hx of hysterectomy, appendectomy, colectomy who presented to the hospital for bleeding per rectum.? Patient pleasant lying comfortably in bed. She states the bleeding has resolved. She had her EGD/colonoscopy performed today. Colonoscopy revealed multiple diverticula with stigmata of previous bleeding with hematin, no more active bleeding. 6 mm polyp excised. EGD with hiatal hernia, otherwise unremarkable. Per GI continue holding Eliquis for 5 days at least. Patient diet resumed as tolerated. She denies chest pain, shortness of breath, nausea/vomiting. Review of Systems Review of Systems: All systems reviewed & are unremarkable except as noted in HPI and below Exam Narrative: AF HR 77 RR 18 SpO2 92 BP 142/61 General: elderly female in no acute respiratory distress who is nontoxic appearing, lying semi recumbent in bed. HEENT: Normocephalic. Atraumatic. Pupils equal round reactive to light. Extraocular movement intact. Sclera clear and anicteric. No facial asymmetry. Chest: Lungs are clear to auscultation bilaterally. No wheezes or crackles. CV: Heart was irregular rate and rhythm. S1-S2. No murmurs, gallops, or ru
--- NOTE | 2024-02-08 13:35 | PC.NURSE ---
To GI Lab via [employer].
[2024-02-08] MEDS: LACTATED RINGERS 1,000 ML 150 ML IV CONT (13:50)
--- NOTE | 2024-02-08 14:06 | WPDANESEPPF ---
Anes - Initial Pre Proc Eval Procedure: Operation Date: 02/08/24 14:30 Proposed Procedures p Esophagogastroduodenoscopy & Colonoscopy - Chance Castaneda MD Date/Time: 02/08/24 14:06 Surgeon: Luis Fernando Shukla MD Pre Op Diagnosis: GI BLEED Patient Data Age: 88 Gender: F Height: 1.52 m Weight: 60 kg Last Vital Signs Temp 97 F L 02/08/24 13:47 Pulse 100 02/08/24 13:47 Resp 18 02/08/24 13:47 BP 113/60 02/08/24 13:47 Pulse Ox 100 02/08/24 13:47 O2 Del Method Room Air 02/08/24 13:47 Allergies Allergy/AdvReac Type Severity Reaction Status Date / Time Penicillins Allergy Intermediate Hives Verified 02/08/24 13:45 Sulfa (Sulfonamide Allergy Intermediate Hives Verified 02/08/24 13:45 Antibiotics) fluorescein AdvReac Severe LIGHTHEADED Verified 02/08/24 13:45 latex AdvReac Mild Hives Verified 02/08/24 13:45 Home Medications Medication Instructions Recorded Confirmed Type Lactobacillus acidophilus 250 100 mmu cells PO 1200 05/22/20 02/07/24 History million cell capsule (Probiotic Acidophilus) calcium carbonate (Calcium 600) 1,200 mg PO DAILY 05/22/20 02/07/24 History multivitamin (One-A-Day Essential 1 tablet PO DAILY 05/22/20 02/07/24 History tablet) vitamin B complex (B 1 tablet PO DAILY 07/30/22 02/07/24 History Complex-Vitamin B12 tablet) ascorbic acid (vitamin C) 1,000 mg 1 g PO DAILY 02/27/23 02/07/24 History tablet apixaban 5 mg tablet (Eliquis) 5 mg PO Q12HR #60 tabs 11/09/23 02/07/24 Rx hydrocodone 10 mg-acetaminophen 1 tablet PO USEASDIRECTD 11/23/23 02/07/24 History 325 mg tablet ferrous sulfate 325 mg (65 mg 325 mg PO DAILY 02/07/24 02/07/24 History iron) tablet,delayed release lisinopril 40 mg tablet 40 mg PO HS 02/07/24 02/07/24 History Laboratory Tests 05/21/24 06:19 WBC 7.1 K/mm3 (4.5-10.0) RBC 3.23 L M/mm3 (4.2-5.4) Hgb 9.8 L g/dL (12.0-15.0) Hct 31.0 L % (37.0-47.0) MCV 96.0 fl (80-100) MCH 30.3 pg (26-34) MCHC 31.6 L g/dl (32-36) RDW 14.3 % (11.5-14.5) Plt Count 189 k/mm3 (150-375) MPV 10.5 H fl (7.4-10.4) Immature Gran % (Auto) 0.4 % (0-0.5) Neut % (Auto) 70.2 % (45.5-73.1) Lymph % (Auto) 17.5 L % (18.3-44.2) [place] % (Auto) 10.5 H % (2.6-8.5) Eos % (Auto) 1.1 % (0-4.4) Baso % (Auto) 0.3 % (0.2-1.2) Lymph # (Auto) 1.24 K/mm3 (0.9-3.2) [place] # (Auto) 0.7 H K/mm3 (0.1-0.6) Eos # (Auto) 0.1 K/mm3 (0-0.3) Baso # (Auto) 0.0 K/mm3 (0.0-0.1) Abs Immat Gran (auto) 0.03 K/mm3 (0.00-0.031) Absolute Neuts (auto) 5.0 K/mm3 (1.3-6.7) Absolute Nucleated RBC 0.000 K/mm3 (0.0-0.012) Nucleated RBC % 0.0 % (0.0-0.2) Sodium 135 L mmol/L (137-145) Potassium 3.8 mmol/L (3.4-5.0) Chloride 104 mmol/L (98-107) Carbon Dioxide 24 mmol/L (22-30) Anion Gap 7 mmol/L (4-12) BUN 11 D mg/dL (7-17) Creatinine 0.60 L mg/dL (0.7-1.0) Estim Creat Clear Calc 45 ml/min Estimated GFR > 60 (59 - ) Glucose 107 mg/dL (65-110) Calcium 9.2 mg/dL (8.4-10.2) Total Bilirubin 0.5 mg/dL (0.2-1.3) AST 27 U/L (14-36) ALT 20 U/L (6-35) Alkaline Phosphatase 67 U/L (38-126) Total Protein 6.0 L g/dL (6.3-8.2) Albumin 3.8 g/dL (3.5-5.1) Patient hx anesthesia problems: none Family hx anesthesia problems: none Results Review: All pre-operative results and documents have been reviewed as part of the pre-operative evaluation. FORMERLY [facility], [facility] Past Medical History Medical History Chronic lower back pain (~11/07/23) Constipation due to opioid therapy COVID-19 (~11/07/23) CTS (carpal tunnel syndrome) Duodenal ulcer perforation Fall Gastric ulcer HTN (hypertension) Iron deficiency anemia Osteoarthritis Osteomyelitis of wrist Paroxysmal atrial fibrillation Perforated duoden
--- NOTE | 2024-02-08 14:15 | SUR.OPER ---
EGD end 1415 COLONOSCOPY START 1420
--- NOTE | 2024-02-08 14:53 | ECG_ITS ---
SEE SCANNED COPY FOR CONFIRMED REPORT MTDD
--- NOTE | 2024-02-08 15:03 | SUR.PHASEII ---
EKG requested by Dr. Brandt due to patient potentially flipping in and out of a-fib/a-flutter. Results handed to Dr. Brandt.
--- NOTE | 2024-02-08 15:15 | PC.NURSE ---
Back from GI Lab via stretcher.
[2024-02-08] MEDS: ACIDOPHILUS/BULGARICUS CHEWABLE TABLET 1 TABLET BY MOUTH (16:47)
[2024-02-08] MEDS: FERROUS SULFATE 325 MG TABLET DR PO (16:47)
[2024-02-08] MEDS: ASCORBIC ACID 500 MG TABLET 1000 MG PO (16:47)
[2024-02-08] MEDS: CALCIUM CARBONATE (OSCAL) 500 MG TABLET 1000 MG PO (16:47)
[2024-02-08] MEDS: VITAMIN B COMPLEX CAPSULE 1 CAP PO (16:47)
[2024-02-08] MEDS: MULTIVITAMINS THERAPEUTIC TAB (*BKC) 1 TABLET PO (16:47)
[2024-02-08] MEDS: lisinopriL 20 MG TABLET 40 MG PO (21:35)
[2024-02-09 06:00] VITALS: BP 118/54; PULSE 84; RESP 16; TEMP 36.6; O2SAT 97
[2024-02-09 06:31] LABS: Basophils Percent Auto 0.3 % (0.2-1.2); Eosinophils Absolute Auto 0.1 K/mm3 (0-0.3); Eosinophils Percent Auto 0.8 % (0-4.4); Hematocrit 28.5 % (37.0-47.0); Hemoglobin 9.3 g/dL (12.0-15.0); Immature Granulocyte Absolute 0.04 K/mm3 (0.00-0.031); Immature Granulocyte Percent A 0.4 % (0-0.5); Lymphocytes Percent Auto 10.2 % (18.3-44.2); Mean Corpuscular HGB Conc 32.6 g/dl (32-36); Mean Corpuscular Hemoglobin 30.9 pg (26-34); Mean Corpuscular Volume 94.7 fl (80-100); Mean Platelet Volume 10.8 fl (7.4-10.4); Monocytes Absolute Auto 0.8 K/mm3 (0.1-0.6); Neutrophils Absolute Auto 7.8 K/mm3 (1.3-6.7); Neutrophils Percent Auto 80.3 % (45.5-73.1); Platelet Count Result 182 k/mm3 (150-375); Red Blood Count 3.01 M/mm3 (4.2-5.4); Red Cell Distribution Width 14.1 % (11.5-14.5); White Blood Count 9.8 K/mm3 (4.5-10.0)
[2024-02-09 06:42] LABS: Alanine Aminotransferase 19 U/L (6-35); Albumin Level 3.6 g/dL (3.5-5.1); Alkaline Phosphatase 67 U/L (38-126); Anion Gap 5 mmol/L (4-12); Aspartate Amino Transferase 31 U/L (14-36); Bilirubin,Total 0.6 mg/dL (0.2-1.3); Blood Urea Nitrogen 10 mg/dL (7-17); Calcium 8.8 mg/dL (8.4-10.2); Carbon Dioxide 27 mmol/L (22-30); Chloride 103 mmol/L (98-107); Estimated CRCL calculation 39 ml/min; Estimated Glomerular Filt Rate > 60; Glucose 114 mg/dL (65-110); Potassium 3.7 mmol/L (3.4-5.0); Sodium 135 mmol/L (137-145)
--- NOTE | 2024-02-09 08:48 | P.PNAN_ITS ---
Anes - Prog Note Post-Op Date/Time: 02/09/24 08:48 Vital Signs: Last Vital Signs Temp 36.6 C 02/09/24 06:00 Pulse 84 02/09/24 06:00 Resp 16 02/09/24 06:00 BP 118/54 L 02/09/24 06:00 Pulse Ox 97 02/09/24 06:00 O2 Del Method Room Air 02/08/24 14:55 Pain Score (VAS): 0 I/O: Intake & Output 02/08/24 02/09/24 02/09/24 23:59 07:59 15:59 Intake Total 240 25 60 Balance 240 25 60 Laboratory Tests 02/09/24 06:00 02/09/24 06:00 02/09/24 06:00 WBC 9.8 RBC 3.01 L Hgb 9.3 L Hct 28.5 L MCV 94.7 MCH 30.9 MCHC 32.6 RDW 14.1 Plt Count 182 MPV 10.8 H Immature Gran % (Auto) 0.4 Neut % (Auto) 80.3 H Lymph % (Auto) 10.2 L [place] % (Auto) 8.0 Eos % (Auto) 0.8 Baso % (Auto) 0.3 Lymph # (Auto) 1.00 [place] # (Auto) 0.8 H Eos # (Auto) 0.1 Baso # (Auto) 0.0 Abs Immat Gran (auto) 0.04 H Absolute Neuts (auto) 7.8 H Absolute Nucleated RBC 0.000 Nucleated RBC % 0.0 Sodium 135 L Potassium 3.7 Chloride 103 Carbon Dioxide 27 Anion Gap 5 BUN 10 Creatinine 0.70 Estim Creat Clear Calc 39 Estimated GFR > 60 Glucose 114 H Calcium 8.8 Total Bilirubin 0.6 AST 31 ALT 19 Alkaline Phosphatase 67 Total Protein 6.0 L Albumin 3.6 Post-procedural complaints: none Patient Feedback: Patient satisfied with anesthetic care.
[2024-02-09 09:40] VITALS: O2SAT 97
[2024-02-09] MEDS: ASCORBIC ACID 500 MG TABLET 1000 MG PO (09:40)
[2024-02-09] MEDS: LUBIPROSTONE 8 MCG CAPSULE PO ×2 (09:41→16:50)
[2024-02-09] MEDS: MULTIVITAMINS THERAPEUTIC TAB (*BKC) 1 TABLET PO (09:41)
[2024-02-09] MEDS: VITAMIN B COMPLEX CAPSULE 1 CAP PO (09:41)
[2024-02-09] MEDS: FERROUS SULFATE 325 MG TABLET DR PO (09:41)
[2024-02-09] MEDS: ACIDOPHILUS/BULGARICUS CHEWABLE TABLET 1 TABLET BY MOUTH (09:41)
[2024-02-09] MEDS: CALCIUM CARBONATE (OSCAL) 500 MG TABLET 1000 MG PO (09:41)
--- NOTE | 2024-02-09 12:46 | PM.IMPN ---
Progress Note: A&P Assessment and Plan (1) Acute GI bleeding: Code(s): K92.2 - Gastrointestinal hemorrhage, unspecified Status: Acute Assessment and Plan: Last colonoscopy 11/08/2018: multiple diverticula without active bleeding and uncomplicated internal hemorrhoids. History of duodenal ulcer with perforation in 2016 s/p repair with Dr. Marley. Patient recently admitted 11/08-11/09/23 for new onset afib and started on Eliquis (CHADS Vasc score 4 (gender, age, HTN). Patient states bleeding has resolved. - CT abdomen/pelvis: large hiatal hernia, no other significant abnormalities. - GI following. - Continue holding Eliquis for 5 days at least per GI recommendations - Colonoscopy: Multiple diverticula had stigmata of previous bleeding with hematin, no more active bleeding. 6 mm polyp excised. - EGD: Hiatal hernia, otherwise unremarkable. - Advance diet as tolerated - monitor labs (2) Chronic anemia: Code(s): D64.9 - Anemia, unspecified Status: Acute Assessment and Plan: Chronic iron deficiency anemia on iron supplementation. H/H 11.2/34.5 on admission. Appears to be around patients baseline. Per patient she follows with hematology every 6 months. - 02/07 H&H 9.8/31 - / H&H 9.3/28.5 - a drop in 2 points from admission. Repeat labs this afternoon. 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 Patient notes that prior to admission she took several laxatives due to multiple days without BM and constant straining. - Per GI patient will start Amitizia 8 mcg BID following the colonoscopy (4) Paroxysmal atrial fibrillation: Code(s): I48.0 - Paroxysmal atrial fibrillation Status: Acute Assessment and Plan: Patient recently admitted 11/08-11/09/23 for new onset afib. She was evaluated by cardiology at that time. Per cardiology consult note patient was asymptomatic despite not being on any AV gali blocking agents and started on Eliquis (CHADS Vasc score 4 (gender, age, HTN). - Holding eliquis X5 days - Vitals remain stable - Monitor (5) HTN (hypertension): Qualifiers: Hypertension type: essential hypertension Qualified Code(s): I10 - Essential (primary) hypertension Code(s): I10 - Essential (primary) hypertension Status: Chronic Assessment and Plan: Chronic. Stable on home medications. - Continue lisinopril 40 mg daily - Monitor Subjective Date/time seen: 02/09/24 12:46 Interval history: patient is been more weak today. She did states that she had a small amount of blood in her stool this morning. Will repeat an H&H this afternoon. Her hemoglobin has dropped 2 points in the past 2 days. Would like to keep her for 1 more day to monitor weakness and hemoglobin. GI recommending holding Eliquis for 5 days at this time. Exam Narrative: GENERAL: Comfortable, no acute distress HENMT: moist mucous membranes EYES: EOM intact b/l NECK: no lymphadenopathy RESPIRATORY: clear to auscultation, no increased respiratory effort CARDIO: Regular rate and rhythm GI: soft, nontender, bowel sounds present SKIN/EXTREMITIES: no rashes, no edema, no redness or tenderness NEURO: PROM intact, answers questions appropriately, A&O x4 Objective Data Vital Signs Vital Signs: Vital Signs - 24 hr 02/08/24 13:47 02/08/24 14:35 02/08/24 14:45 Temperature 97 F L Pulse Rate 100 80 77 Respiratory Rate 18 20 17 Blood Pressure 113/60 109/50 L 98/53 L Pulse Oximetry 100 98 100 Oxygen Delivery Room Air Room Air Room Air 02/08/24 14:55 02/08/24 15:24 02/08/24 22:00 Temperature 96.4 F L 97.5 F L Pulse Rate 73 77 75 Respiratory Rate 19 18 20 Blood Pressure 105/56 L 142/61 H 142/63 H Pulse Oximetry 100 92 100 Oxygen Delivery Room Air 02/09/24 06:00 02/09/24 09:40 Temperatur
[2024-02-09 13:04] LABS: Hemoglobin 10.8 g/dL (12.0-15.0)
[2024-02-09 13:53] VITALS: BP 104/49; PULSE 89; RESP 14; TEMP 36.9; O2SAT 99
--- NOTE | 2024-02-09 14:16 | WPDGIPROGNO ---
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 generalized weakness Review of Systems Review of Systems: All systems reviewed & are unremarkable except as noted in HPI and below Exam Const: General: comfortable and no acute distress HENMT: Face/Nose/Sinus: Normal nares present Eyes: General: appearance normal, both eyes and all related structures Neck: Neck: supple Resp: Auscultation: clear to auscultation bilaterally Cardio: Rate: regular rate Rhythm: regular rhythm GI: Inspection: non-distended GI Palp: Yes Soft to palpation Skin: General skin exam: no rashes or lesions noted Neuro: Speech: normal speech Motor exam (neuro): 5/5 motor strength present throughout Extrem: General: normal to inspection Psych: Mental Status: mental status grossly normal Objective Data Vital Signs Vital Signs: Vital Signs - 24 hr 02/08/24 14:35 02/08/24 14:45 02/08/24 14:55 Temperature Pulse Rate 80 77 73 Respiratory Rate 20 17 19 Blood Pressure 109/50 L 98/53 L 105/56 L Pulse Oximetry 98 100 100 Oxygen Delivery Room Air Room Air Room Air 02/08/24 15:24 02/08/24 22:00 02/09/24 06:00 Temperature 96.4 F L 97.5 F L 97.8 F Pulse Rate 77 75 84 Respiratory Rate 18 20 16 Blood Pressure 142/61 H 142/63 H 118/54 L Pulse Oximetry 92 100 97 Oxygen Delivery 02/09/24 09:40 02/09/24 13:53 Temperature 98.4 F Pulse Rate 89 Respiratory Rate 14 Blood Pressure 104/49 L Pulse Oximetry 97 99 Oxygen Delivery Room Air Intake/Output Intake/Output: Intake & Output 02/06/24 02/07/24 02/08/24 02/09/24 23:59 23:59 23:59 23:59 Intake Total 1128 990 325 Balance 1128 990 325 Meds/Results Medications: Active Medications Generic Name Dose Route Start Last Admin Trade Name Genq PRN Reason Stop Dose Admin Ascorbic Acid 1,000 mg 02/07/24 09:00 02/09/24 09:40 Ascorbic Acid 500 Mg Tablet PO 1,000 mg DAILY LUCAS Administration Calcium Carbonate 1,000 mg 02/07/24 09:00 02/09/24 09:41 Calcium Carbonate (Oscal) 500 Mg Tablet PO 1,000 mg QAM LUCAS Administration Ferrous Sulfate 325 mg 02/07/24 09:00 02/09/24 09:41 Ferrous Sulfate [address] PO 325 mg DAILY LUCAS Administration Lactobacillus Acidophilus 1 tablet 02/07/24 09:00 02/09/24 09:41 Acidophilus/Bulgar[place] Chewable Tablet BY MOUTH 1 tablet DAILY LUCAS Administration Lisinopril 40 mg 02/07/24 21:00 02/08/24 21:35 Lisinopril 20 Mg Tablet PO 40 mg HS LUCAS Administration Lubiprostone 8 mcg 02/08/24 09:00 02/09/24 09:41 Lubiprostone 8 Mcg Capsule PO 8 mcg BID LUCAS Administration Multivitamins Therapeutic 1 tablet 02/07/24 09:00 02/09/24 09:41 Multivitamins Therapeutic Tab (*Bkc) PO 1 tablet DAILY LUCAS Administration Vitamin B Complex 1 cap 02/07/24 09:00 02/09/24 09:41 Vitamin B Complex Capsule PO 1 cap DAILY LUCAS Administration Radiology Results: ITS Impressions Abdomen/Pelvis CT 02/07/24 06:26 Impression: Large hiatal hernia. No other significant abnormality seen. [place]
[2024-02-09] MEDS: HYDROcodone/acetaminophen (*CRX) 10-325 MG TABLET 1 TAB PO ×2 (17:49→20:23)
[2024-02-09 19:00] VITALS: BP 123/55; PULSE 107; RESP 18; TEMP 36.4; O2SAT 99
[2024-02-09] MEDS: lisinopriL 20 MG TABLET 40 MG PO (20:23)
[2024-02-10] MEDS: HYDROcodone/acetaminophen (*CRX) 10-325 MG TABLET 1 TAB PO ×3 (05:26→13:11)
[2024-02-10 06:00] VITALS: BP 111/57; PULSE 77; RESP 18; TEMP 36.1; O2SAT 99
[2024-02-10 06:18] LABS: Basophils Percent Auto 0.3 % (0.2-1.2); Eosinophils Absolute Auto 0.2 K/mm3 (0-0.3); Hematocrit 34.3 % (37.0-47.0); Hemoglobin 10.9 g/dL (12.0-15.0); Immature Granulocyte Absolute 0.04 K/mm3 (0.00-0.031); Immature Granulocyte Percent A 0.5 % (0-0.5); Lymphocytes Absolute Auto 1.59 K/mm3 (0.9-3.2); Lymphocytes Percent Auto 20.8 % (18.3-44.2); Mean Corpuscular HGB Conc 31.8 g/dl (32-36); Mean Corpuscular Hemoglobin 30.6 pg (26-34); Mean Corpuscular Volume 96.3 fl (80-100); Mean Platelet Volume 10.8 fl (7.4-10.4); Monocytes Absolute Auto 0.8 K/mm3 (0.1-0.6); Monocytes Percent Auto 10.3 % (2.6-8.5); Neutrophils Percent Auto 65.1 % (45.5-73.1); Platelet Count Result 199 k/mm3 (150-375); Red Blood Count 3.56 M/mm3 (4.2-5.4); White Blood Count 7.7 K/mm3 (4.5-10.0)
[2024-02-10 06:29] LABS: Alanine Aminotransferase 19 U/L (6-35); Albumin Level 4.4 g/dL (3.5-5.1); Alkaline Phosphatase 82 U/L (38-126); Anion Gap 7 mmol/L (4-12); Aspartate Amino Transferase 26 U/L (14-36); Bilirubin,Total 0.5 mg/dL (0.2-1.3); Blood Urea Nitrogen 18 mg/dL (7-17); Calcium 9.3 mg/dL (8.4-10.2); Carbon Dioxide 27 mmol/L (22-30); Chloride 101 mmol/L (98-107); Estimated CRCL calculation 31 ml/min; Estimated Glomerular Filt Rate 59; Glucose 105 mg/dL (65-110); Potassium 3.7 mmol/L (3.4-5.0); Sodium 135 mmol/L (137-145)
[2024-02-10 07:53] VITALS: O2SAT 98
[2024-02-10 08:00] VITALS: O2SAT 98
[2024-02-10] MEDS: ACIDOPHILUS/BULGARICUS CHEWABLE TABLET 1 TABLET BY MOUTH (08:36)
[2024-02-10] MEDS: LUBIPROSTONE 8 MCG CAPSULE PO (08:36)
[2024-02-10] MEDS: ASCORBIC ACID 500 MG TABLET 1000 MG PO (08:36)
[2024-02-10] MEDS: FERROUS SULFATE 325 MG TABLET DR PO (08:36)
[2024-02-10] MEDS: CALCIUM CARBONATE (OSCAL) 500 MG TABLET 1000 MG PO (08:36)
[2024-02-10] MEDS: MULTIVITAMINS THERAPEUTIC TAB (*BKC) 1 TABLET PO (08:37)
[2024-02-10] MEDS: VITAMIN B COMPLEX CAPSULE 1 CAP PO (08:37)
--- NOTE | 2024-02-10 11:39 | PM.DS ---
DS: Admitting Diagnosis Discharge Date 02/10/24 Admitting Diagnosis Acute GI bleed DS: Discharge Diagnosis Discharge Diagnosis (1) Acute GI bleeding: Code(s): K92.2 - Gastrointestinal hemorrhage, unspecified Status: Acute (2) Chronic anemia: Code(s): D64.9 - Anemia, unspecified Status: Acute (3) Chronic constipation: Code(s): K59.09 - Other constipation Status: Acute (4) Paroxysmal atrial fibrillation: Code(s): I48.0 - Paroxysmal atrial fibrillation Status: Acute (5) HTN (hypertension): Qualifiers: Hypertension type: essential hypertension Qualified Code(s): I10 - Essential (primary) hypertension Code(s): I10 - Essential (primary) hypertension Status: Chronic DS: Summary Hospital Course Hospital Course: 88 year old female with history of hypertension, history of gastric ulcer, afib, iron deficiency anemia, vitamin-D deficiency, osteoarthritis with chronic back pain and multiple joint pain, hx of hysterectomy, appendectomy, colectomy who presented to the hospital for bleeding per rectum. Patient recently admitted 11/08-11/09/23 for new onset afib. She was started on Eliquis (CHADS Vasc score 4). She having dark black diarrhea at the day of presentation.This changed to bright red blood seen in the toilet with noted black blood on pads. She endorses weakness, but denies lightheadedness, dizziness and shortness of breath. GI consulted. ED workup: CBC without leukocytosis and mild anemia H/H 11.2/34.5 (appears to be at baseline). PT 17.1, INR 1.3, APTT 32.1. CMP unremarkable. Abdomen/pelvis CT: large hiatal hernia, no other significant abnormalities. Patient had an EGD and colonoscopy on 02/07/2010 4. Colonoscopy showed multiple diverticula and stigmata of previous bleeding with him at an, no more active bleeding. 6 mm polyp was excised. EGD showed a hiatal hernia but otherwise unremarkable. They advised holding patient's Eliquis for 5 days. Patient did have a drop in her hemoglobin during admission but it this could have also been due to IV fluids. Her hemoglobin stabilized and on day of discharge her hemoglobin was 10.9. Patient's diet was advanced and she did well with this. Plan to restart patient's Eliquis on 02/13. Time Spent with Patient Time attestation: Total time spent providing and/or coordinating discharge services: Exam Narrative: GENERAL: Comfortable, no acute distress HENMT: moist mucous membranes EYES: EOM intact b/l NECK: no lymphadenopathy RESPIRATORY: clear to auscultation, no increased respiratory effort CARDIO: Regular rate and rhythm GI: soft, nontender, bowel sounds present SKIN/EXTREMITIES: no rashes, no edema, no redness or tenderness NEURO: PROM intact, answers questions appropriately, A&O x4 DS: Data Data Completed and Pending Completed studies during hospitalization: Pending at discharge 02/08/24 14:32 Surgical [PTH] Routine Labs on day of discharge: Labs from last 24 hours 02/10/24 02/09/24 05:55 12:48 WBC 7.7 RBC 3.56 L Hgb 10.9 L 10.8 L Hct 34.3 L 33.0 L MCV 96.3 MCH 30.6 MCHC 31.8 L RDW 14.0 Plt Count 199 MPV 10.8 H Immature Gran % (Auto) 0.5 Neut % (Auto) 65.1 Lymph % (Auto) 20.8 Stevens % (Auto) 10.3 H Eos % (Auto) 3.0 Baso % (Auto) 0.3 Lymph # (Auto) 1.59 Stevens # (Auto) 0.8 H Eos # (Auto) 0.2 Baso # (Auto) 0.0 Abs Immat Gran (auto) 0.04 H Absolute Neuts (auto) 5.0 Absolute Nucleated RBC 0.000 Nucleated RBC % 0.0 Sodium 135 L Potassium 3.7 Chloride 101 Carbon Dioxide 27 Anion Gap 7 BUN 18 H Creatinine 0.90 Estim Creat Clear Calc 31 Estimated GFR 59 Glucose 105 Calcium 9.3 Total Bilirubin 0.5 AST 26 ALT 19 Alkaline Phosphatase 82 Total Protein 7.0 Albumin 4.4 Discharge Plan Discharge Consulting providers: Chance Castaneda; Akanksha Aguilar Discharging Clinician: Roly
--- NOTE | 2024-02-10 12:27 | WPDGIPROGNO ---
Progress Note: A&P Assessment and Plan (1) Hematochezia: Code(s): K92.1 - Melena Status: Acute Assessment and Plan: no more bleeding, doing better and she is in good spirits- looking forward to being discharged. noted old blood in colon and diverticulosis- probably cause of presentation hold blood thinner at least for 5 days after scope (2) Diverticular hemorrhage: Code(s): K57.31 - Diverticulosis of large intestine without perforation or abscess with bleeding Status: Acute Assessment and Plan: resolved (3) Anticoagulant long-term use: Code(s): Z79.01 - care home (current) use of anticoagulants Status: Acute (4) Chronic anemia: Code(s): D64.9 - Anemia, unspecified Status: Acute Assessment and Plan: h/h stable (5) Paroxysmal atrial fibrillation: Code(s): I48.0 - Paroxysmal atrial fibrillation Status: Acute Subjective Date/time seen: 02/10/24 12:27 Interval history: no more pain, she is comfortable and ready to go home Review of Systems Review of Systems: All systems reviewed & are unremarkable except as noted in HPI and below Exam Const: General: comfortable and no acute distress HENMT: Face/Nose/Sinus: Normal nares present Eyes: General: appearance normal, both eyes and all related structures Neck: Neck: supple Resp: Auscultation: clear to auscultation bilaterally Cardio: Rate: regular rate Rhythm: regular rhythm GI: Inspection: non-distended GI Palp: Yes Soft to palpation Skin: General skin exam: no rashes or lesions noted Neuro: Speech: normal speech Motor exam (neuro): 5/5 motor strength present throughout Extrem: General: normal to inspection Psych: Mental Status: mental status grossly normal Objective Data Vital Signs Vital Signs: Vital Signs - 24 hr 02/09/24 13:53 02/09/24 14:25 02/09/24 19:00 Temperature 98.4 F 97.6 F Pulse Rate 89 107 H Respiratory Rate 14 18 Blood Pressure 104/49 L 123/55 L Pulse Oximetry 99 99 Oxygen Delivery Room Air Fraction of Inspired Oxygen 02/10/24 06:00 02/10/24 07:53 02/10/24 08:00 Temperature 97.0 F L Pulse Rate 77 Respiratory Rate 18 Blood Pressure 111/57 L Pulse Oximetry 99 98 98 Oxygen Delivery Room Air Room Air Fraction of Inspired Oxygen 21 Intake/Output Intake/Output: Intake & Output 02/07/24 02/08/24 02/09/24 02/10/24 23:59 23:59 23:59 23:59 Intake Total 1128 990 565 358 Balance 1128 990 565 358 Meds/Results Medications: Active Medications Generic Name Dose Route Start Last Admin Trade Name Sebas PRN Reason Stop Dose Admin Hydrocodone Bitart/Acetaminophen 1 tab 02/09/24 17:15 02/10/24 08:36 Hydrocodone/Acetaminophen (*Crx) 10-325 Mg Tablet PO 1 tab Q4HWA LUCAS Administration Ascorbic Acid 1,000 mg 02/07/24 09:00 02/10/24 08:36 Ascorbic Acid 500 Mg Tablet PO 1,000 mg DAILY LUCAS Administration Calcium Carbonate 1,000 mg 02/07/24 09:00 02/10/24 08:36 Calcium Carbonate (Oscal) 500 Mg Tablet PO 1,000 mg QAM LUCAS Administration Ferrous Sulfate 325 mg 02/07/24 09:00 02/10/24 08:36 Ferrous Sulfate [address] PO 325 mg DAILY LUCAS Administration Lactobacillus Acidophilus 1 tablet 02/07/24 09:00 02/10/24 08:36 Acidophilus/Bulgaricus Chewable Tablet BY MOUTH 1 tablet DAILY LUCAS Administration Lisinopril 40 mg 02/07/24 21:00 02/09/24 20:23 Lisinopril 20 Mg Tablet PO 40 mg HS LUCAS Administration Lubiprostone 8 mcg 02/08/24 09:00 02/10/24 08:36 Lubiprostone 8 Mcg Capsule PO 8 mcg BID LUCAS Administration Multivitamins Therapeutic 1 tablet 02/07/24 09:00 02/10/24 08:37 Multivitamins Therapeutic Tab (*Bkc) PO 1 tablet DAILY LUCAS Administration Vitamin B Complex 1 cap 02/07/24 09:00 02/10/24 08:37 Vitamin B Complex Capsule PO 1 cap DAILY LUCAS Administration Radiology Results: ITS Impressions Abdomen/Pelvis CT
== END 2024-02-10 14:48 | disposition home or self-care (01) | DRG 379 ==
LOC: ANHED 02-07 05:19 → ANH3MEDSUR 02-07 07:08
PROVIDERS: Internal Medicine Critical Care Medicine; Internal Medicine Gastroenterology; Physician Assistant; Student in an Organized Health Care Education/Training Program; Admitting Provider Internal Medicine; Emergency Provider Emergency Medicine; PCP Family Medicine; Visit Provider Internal Medicine
PROC: 0DJ08ZZ Inspection of Upper Intestinal Tract, Via Natural or Artificial Opening Endoscopic (ICD-10-PCS; CPT 43235; principal; 2024-02-08 14:30)
DX: K57.31 Diverticulosis of large intestine without perforation or abscess with bleeding (principal); K92.1 Melena; K44.9 Diaphragmatic hernia without obstruction or gangrene; D50.9 Iron deficiency anemia, unspecified; E55.9 Vitamin D deficiency, unspecified; G89.29 Other chronic pain; I10 Essential (primary) hypertension; I48.0 Paroxysmal atrial fibrillation; K59.09 Other constipation; M19.90 Unspecified osteoarthritis, unspecified site; M54.9 Dorsalgia, unspecified; Z90.49 Acquired absence of other specified parts of digestive tract; Z90.710 Acquired absence of both cervix and uterus; Z79.01 Long term (current) use of anticoagulants; Z79.891 Long term (current) use of opiate analgesic; Z87.11 Personal history of peptic ulcer disease; Z88.0 Allergy status to penicillin; Z86.16 Personal history of COVID-19; Z98.49 Cataract extraction status, unspecified eye; Z96.1 Presence of intraocular lens; Z66 Do not resuscitate
CPT/HCPCS: 36415; 74177; 80053; 85014; 85018; 85025; 85610; 85730; 86850; 86900; 86901; 88305; 93005; 96374; 97161; 99285; A9270; C9113; J2704; J7120; Q9967

== ENCOUNTER 2024-02-29 13:26 | Outpatient (CLI) | payer MEDICARE, SELFPAY ==
[2024-02-29 19:07] LABS: Alanine Aminotransferase 20 U/L (6-35); Albumin Level 4.4 g/dL (3.5-5.1); Alkaline Phosphatase 77 U/L (38-126); Anion Gap 5 mmol/L (4-12); Aspartate Amino Transferase 39 U/L (14-36); Bilirubin,Total 0.6 mg/dL (0.2-1.3); Blood Urea Nitrogen 25 mg/dL (7-17); Calcium 9.6 mg/dL (8.4-10.2); Carbon Dioxide 29 mmol/L (22-30); Chloride 101 mmol/L (98-107); Cholesterol 172 mg/dL (0-200); Estimated Glomerular Filt Rate > 60; Glucose 94 mg/dL (65-110); HDL Direct 45 mg/dL; Potassium 4.2 mmol/L (3.4-5.0); Sodium 135 mmol/L (137-145); Triglycerides 151 mg/dL (<150)
[2024-02-29 19:20] LABS: LDL Cholesterol Direct 96 mg/dL
[2024-02-29 19:47] LABS: Iron 45 ug/dL (37-170); Percent Iron Saturation 11 % (20-50)
[2024-02-29 19:49] LABS: Hemoglobin 10.5 g/dL (12.0-15.0); Mean Corpuscular HGB Conc 30.9 g/dl (32-36); Mean Corpuscular Hemoglobin 30.3 pg (26-34); Mean Corpuscular Volume 98.3 fl (80-100); Mean Platelet Volume 11.1 fl (7.4-10.4); Platelet Count Result 223 k/mm3 (150-375); Red Blood Count 3.46 M/mm3 (4.2-5.4); Red Cell Distribution Width 14.4 % (11.5-14.5); White Blood Count 5.2 K/mm3 (4.5-10.0)
[2024-02-29 20:16] LABS: Vitamin D 25 Hydroxy 43.5 ng/mL
== END 2024-02-29 13:27 | disposition home or self-care (01) ==
LOC: ANHGOSHLAB 13:28
PROVIDERS: PCP Family Medicine; Visit Provider Nurse Practitioner
DX: E55.9 Vitamin D deficiency, unspecified (principal); D64.9 Anemia, unspecified; I10 Essential (primary) hypertension; I48.0 Paroxysmal atrial fibrillation; E78.5 Hyperlipidemia, unspecified; E03.9 Hypothyroidism, unspecified
CPT/HCPCS: 36415; 80053; 80061; 82306; 83540; 83550; 84443; 85027

== ENCOUNTER 2024-06-29 09:24 | Outpatient (CLI) | payer MEDICARE, SELFPAY | END 2024-06-29 09:25 | disposition home or self-care (01) | LOC: ANHGOSHLAB 09:26 | PROVIDERS: PCP Family Medicine; Visit Provider Family Medicine | DX: N39.0 Urinary tract infection, site not specified (principal) | CPT/HCPCS: 87077; 87086; 87186 ==

== ENCOUNTER 2024-07-05 10:19 | Outpatient (CLI) | payer MEDICARE, SELFPAY ==
[2024-07-05 11:03] LABS: Basophils Percent Auto 0.6 % (0.2-1.2); Eosinophils Absolute Auto 0.2 K/mm3 (0-0.3); Eosinophils Percent Auto 2.9 % (0-4.4); Hematocrit 42.2 % (37.0-47.0); Hemoglobin 13.5 g/dL (12.0-15.0); Immature Granulocyte Absolute 0.02 K/mm3 (0.00-0.031); Immature Granulocyte Percent A 0.3 % (0-0.5); Immature Platelet Fraction Pct 5.4 % (0.9-11.2); Lymphocytes Absolute Auto 1.14 K/mm3 (0.9-3.2); Lymphocytes Percent Auto 17.2 % (18.3-44.2); Mean Corpuscular Hemoglobin 30.5 pg (26-34); Mean Corpuscular Volume 95.5 fl (80-100); Mean Platelet Volume 10.7 fl (7.4-10.4); Monocytes Absolute Auto 0.7 K/mm3 (0.1-0.6); Monocytes Percent Auto 10.1 % (2.6-8.5); Neutrophils Absolute Auto 4.6 K/mm3 (1.3-6.7); Neutrophils Percent Auto 68.9 % (45.5-73.1); Platelet Count Result 183 k/mm3 (150-375); Red Blood Count 4.42 M/mm3 (4.2-5.4); White Blood Count 6.6 K/mm3 (4.5-10.0)
[2024-07-05 21:10] LABS: Anion Gap 15 mmol/L (4-12); Blood Urea Nitrogen 34 mg/dL (7-17); Calcium 9.9 mg/dL (8.4-10.2); Carbon Dioxide 21 mmol/L (22-30); Chloride 101 mmol/L (98-107); Estimated Glomerular Filt Rate 59; Glucose 97 mg/dL (65-110); Potassium 4.4 mmol/L (3.4-5.0); Sodium 137 mmol/L (137-145)
[2024-07-05 21:22] LABS: Iron 125 ug/dL (37-170)
[2024-07-05 21:40] LABS: Percent Iron Saturation 33 % (20-50)
[2024-07-05 22:21] LABS: Folic Acid > 20.0 ng/mL (2.76->20); Vitamin B12 > 1000.0 pg/mL (239-931)
== END 2024-07-05 10:20 | disposition home or self-care (01) ==
LOC: ANHLAB 10:23
PROVIDERS: PCP Family Medicine; Visit Provider Internal Medicine Hematology & Oncology
DX: D64.9 Anemia, unspecified (principal)
CPT/HCPCS: 36415; 80048; 82607; 82728; 82746; 83540; 83550; 85025; 85055

== ENCOUNTER 2024-09-06 12:32 | Outpatient (CLI) | payer MEDICARE, SELFPAY ==
[2024-09-06 18:46] LABS: Basophils Absolute Auto 0.1 K/mm3 (0.0-0.1); Basophils Percent Auto 0.8 % (0.2-1.2); Eosinophils Absolute Auto 0.2 K/mm3 (0-0.3); Eosinophils Percent Auto 3.2 % (0-4.4); Hematocrit 41.1 % (37.0-47.0); Hemoglobin 13.3 g/dL (12.0-15.0); Immature Granulocyte Absolute 0.02 K/mm3 (0.00-0.031); Immature Granulocyte Percent A 0.3 % (0-0.5); Lymphocytes Percent Auto 19.2 % (18.3-44.2); Mean Corpuscular HGB Conc 32.4 g/dl (32-36); Mean Corpuscular Hemoglobin 31.3 pg (26-34); Mean Corpuscular Volume 96.7 fl (80-100); Mean Platelet Volume 11.5 fl (7.4-10.4); Monocytes Absolute Auto 0.7 K/mm3 (0.1-0.6); Monocytes Percent Auto 11.7 % (2.6-8.5); Neutrophils Percent Auto 64.8 % (45.5-73.1); Platelet Count Result 198 k/mm3 (150-375); Red Blood Count 4.25 M/mm3 (4.2-5.4); Red Cell Distribution Width 13.2 % (11.5-14.5); White Blood Count 6.2 K/mm3 (4.5-10.0)
[2024-09-06 19:11] LABS: Vitamin D 25 Hydroxy 39.7 ng/mL
[2024-09-06 19:21] LABS: Alanine Aminotransferase 22 U/L (6-35); Albumin Level 4.6 g/dL (3.5-5.1); Alkaline Phosphatase 103 U/L (38-126); Anion Gap 4 mmol/L (4-12); Aspartate Amino Transferase 40 U/L (14-36); Bilirubin,Total 0.4 mg/dL (0.2-1.3); Blood Urea Nitrogen 27 mg/dL (7-17); Calcium 9.7 mg/dL (8.4-10.2); Carbon Dioxide 27 mmol/L (22-30); Chloride 105 mmol/L (98-107); Cholesterol 177 mg/dL (0-200); Estimated Glomerular Filt Rate 59; Glucose 101 mg/dL (65-110); HDL Direct 48 mg/dL; Potassium 4.5 mmol/L (3.4-5.0); Sodium 136 mmol/L (137-145); Triglycerides 93 mg/dL (<150)
[2024-09-06 19:33] LABS: LDL Cholesterol Direct 95 mg/dL
[2024-09-06 20:14] LABS: Hemoglobin A1C 5.4 % (<5.7)
== END 2024-09-06 12:33 | disposition home or self-care (01) ==
LOC: ANHGOSHLAB 12:33
PROVIDERS: PCP Family Medicine; Visit Provider Family Medicine
DX: R73.9 Hyperglycemia, unspecified (principal); E78.5 Hyperlipidemia, unspecified; I10 Essential (primary) hypertension; Z00.00 Encounter for general adult medical examination without abnormal findings; I48.0 Paroxysmal atrial fibrillation; E55.9 Vitamin D deficiency, unspecified
CPT/HCPCS: 36415; 80053; 80061; 82306; 83036; 84443; 85025

== ENCOUNTER 2025-01-10 09:47 | Outpatient (CLI) | payer MEDICARE, SELFPAY ==
[2025-01-10 10:04] LABS: Basophils Percent Auto 0.6 % (0.2-1.2); Eosinophils Absolute Auto 0.2 K/mm3 (0-0.3); Eosinophils Percent Auto 2.2 % (0-4.4); Hematocrit 40.8 % (37.0-47.0); Hemoglobin 13.3 g/dL (12.0-15.0); Immature Granulocyte Absolute 0.03 K/mm3 (0.00-0.031); Immature Granulocyte Percent A 0.4 % (0-0.5); Lymphocytes Absolute Auto 1.24 K/mm3 (0.9-3.2); Lymphocytes Percent Auto 18.3 % (18.3-44.2); Mean Corpuscular HGB Conc 32.6 g/dl (32-36); Mean Corpuscular Hemoglobin 30.3 pg (26-34); Mean Corpuscular Volume 92.9 fl (80-100); Mean Platelet Volume 10.3 fl (7.4-10.4); Monocytes Absolute Auto 0.8 K/mm3 (0.1-0.6); Monocytes Percent Auto 11.2 % (2.6-8.5); Neutrophils Absolute Auto 4.6 K/mm3 (1.3-6.7); Neutrophils Percent Auto 67.3 % (45.5-73.1); Platelet Count Result 218 k/mm3 (150-375); Red Blood Count 4.39 M/mm3 (4.2-5.4); White Blood Count 6.8 K/mm3 (4.5-10.0)
--- OUTSIDE RECORDS SUMMARY | 2025-01-10 10:59 | XMS_ITS | Encounter Summary ---
Author Organization [facility] Address [address] [place] [address] Care Team Providers Care Rn Visiting Name Role Phone Karla Rai MD Primary Care Provider Reason for Visit * Reason Onset Date Comments Appointment Correction 01/10/2025 Encounter Details Date Type Department Care Team (Late Contact Info) Description 01/10/2025 Telephone [facility] Oncology and Hematology - [address] [place] [address] Manish Booker MD [address] [facility] [address] [place] [address] Appointment Correction Social History Tobacco Use Types Packs/Day Years Used Date Smoking Tobacco: Never Smokeless Tobacco: Never Alcohol Use Standard Drinks/Week Comments Never 0 (1 standard drink = 0.6 oz pur e alcohol) Comments Unknown Sex and Gender Information Value Date Recorded Sex Assigned at Not on file Legal Sex Female 7:26 PM CDT Gender Identity Not on file Sexual Orientation Not on file documented as of this encounter Miscellaneous Notes * Telephone Encounter - Miladis Alberto - 01/10/2025 9:32 AM CDT Left message for patient to give our office a call back. Was looking at changing her appointment per Dr. Booker's request. documented in this encounter Plan of Treatment Upcoming Encounters Date Type Department Care Team (Late Contact Info) Description 01/17/2025 11:45 AM CDT Office Visit [facility] Oncology and Hematology - [address] [place] [address] Manish Booker MD [address] [facility] [address] [place] [address] documented as of this encounter Visit Diagnoses Not on filedocumented in this encounter Care Teams Rn Visiting Relationship Specialty Start Date End Date Karla Rai MD [address] [place] [address] PCP - General Family Practice 05/19/22 documented as of this encounter
--- OUTSIDE RECORDS SUMMARY | 2025-01-10 10:59 | XMS_ITS | Referral Summary ---
Author Organization [facility] Address [address] [place] [address] Care Team Providers Care Urban Planning Teacher Name Role Phone Karla Rai MD Primary Care Provider Nona Yarbrough Unavailable [phone] Allergies Active Allergy Reactions Criticality Noted Date Comments Adhesive Unknown Adhesive Tape-Silicones Medium Penicillins Hives Medium Sulfa (Sulfonamide Antibiotics) Hives Medium Medications acidophilus-pecti n, citrus 100 million cell-10 mg capsule TAKE DIRECTED. 5 Active lisinopril (PRINIVIL,ZESTRIL ) 30 mg tablet 40 mg nightly 5 Active multivit-minerals /ferrous fum (MULTI VITAMIN ORAL) Take 1 tablet by mouth daily Active ascorbic acid (VITAMIN C) 500 mg tablet,chewableIn dications:Vitamin deficiency prevention Take 1 tablet/chew tab (500 mg total) by mouth daily 30 tablet/chew tab 0 Active HYDROcodone-aceta minophen (NORCO) 5-325 mg per tabletIndications :Pain Take 1-2 tablets every 4-6 hours as needed for pain 60 tablet 0 Active vitamin A-vit C-vit E-zinc-Cu tablet Take by mouth Active cyanocobalamin (Vitamin B-12) 1,000 mcg tabletIndications :Prevention of Vitamin B12 Deficiency Take 1 tablet (1,000 mcg total) by mouth daily Active ferrous sulfate 325 mg (65 mg of elemental iron) tabletIndications :Iron Deficiency Anemia Take 1 tablet (325 mg total) by mouth daily with breakfast Active calcium carbonate/vitamin D3 (CALCIUM 600 + D,3, ORAL) Take by mouth Activ e apixaban (Eliquis) 5 mg tabletIndications :atrial fibrillation Take 1 tablet (5 mg total) by mouth 2 (two) times a day 180 tablet 3 4 Active Active Problems Problem Noted Date Diagnosed Date Longstanding persistent atrial fibrillation 07/21 Other thrombophilia 12/15/2023 Aftercare following right knee joint replacement surgery 07/15/2020 Primary osteoarthritis of right knee 05/13/2020 Arthritis 09/29/2016 Hypertension 09/29/2016 Eczema 03/05/2015 Encounter for long-term (current) use of antibio tics 03/05/2015 Osteomyelitis of upper extremity 10/05/2014 Resolved Problems Problem Noted Date Diagnosed Date Resolved Date SCC (squamous cell carcinoma) 02/21/2018 05/11/2018 Immunizations Immunization Administration Dates Next Due Influenza, Trivalent, IM (MDV) 06/21/2016 Pneumococcal, Unspecified 06/29/2016 Social History Tobacco Use Types Packs/Day Years Used Date Smoking Tobacco: Never Smokeless Tobacco: Never Tobacco Cessation:Counseling Given: Not Answered Alcohol Use Standard Drinks/Week Comments No 0 (1 standard drink = 0.6 oz pur e alcohol) Comments No Sex and Gender Information Value Date Recorded Sex Assigned at Not on file Legal Sex Female 7:25 AM WELCOME WAGON HOST/HOSTESS Gender Identity Not on file Sexual Orientation Not on file Occupation Industry Job Start Date Job End Date RETIRED Not on file Not on file Not on file Last Filed Vital Signs Vital Sign Reading Time Taken Comments Blood Pressure 132/68 08/02/2024 11:54 AM WELCOME WAGON HOST/HOSTESS Pulse 78 08/02/2024 11:54 AM WELCOME WAGON HOST/HOSTESS Temperature 36.1 C (96.9 F) 08/14/2020 11:16 AM WELCOME WAGON HOST/HOSTESS Respiratory Rate 16 08/02/2024 11:54 AM WELCOME WAGON HOST/HOSTESS Oxygen Saturation 99% 12/15/2023 10:54 AM CDT Inhaled Oxygen Concentration - - Weight 61.2 kg (135 lb) 08/02/2024 11:54 AM WELCOME WAGON HOST/HOSTESS Height 152.4 cm (5') 08/02/2024 11:54 AM WELCOME WAGON HOST/HOSTESS Body Mass Index 26.37 08/02/2024 11:54 AM WELCOME WAGON HOST/HOSTESS Plan of Treatment Not on file Medical Devices Implanted Type Area Sheet Pile Hammer Operator Device Identifier Shelf Expiration Date Model / Serial / Lot [employer] 6195-1-001 Cement Bone Simplex Gentamicin High Viscosity 40gm - Sn/A - [id number] Implanted:Qty: 1 on 07/01/2020 by Vijay Rogel MD at [facility] Bone Cement Right: Knee [employer] 06/19/2021 6195-1-001 / N/A / [id number] [employer] [id number] Attune S+ Cement Fix Bearing Knee 3 Baseplate Tibial - [id number] Implanted:Qty: 1 on 07/01/2020 by Vijay Rogel MD at [facility] Right: Knee [employer] 02/17/2030 [id number] / / [id number] [employer] [id number] Attune Cemented Posterior Stabilize Knee Right 3 Component - [id number] Implanted:Qty: 1 on 07/01/2020 by Vijay Rogel MD at [facility] Right: Knee [employer] 05/20/2029 [id number] / / [id number] [employer] [id number] Attune 8mm Fix Bearing Posterior Stabilize Knee 3 Insert Tibial - [id number] Implanted:Qty: 1 on 07/01/2020 by Vijay Rogel MD at [facility] Right: Knee [employer] 01/17/2023 [id number] / / [id number] Insurance COMMERCIAL GENERIC MEDICARE MEDICARE COMMERCIAL [facility] MEDICARE MEDICARE COMMERCIAL GENERIC MEDICARE COMMERCIAL GENERIC Advance Directives For more information, please contact: [phone] * Full Code (Latest Code Status on File) Date Activated Date Inactivated Comments 07/01/2020 11:19 AM 07/04/2020 10:41 PM Care Teams Urban Planning Teacher Relationship Specialty Start Date End Date Karla Rai MD PCP - General 06/05/20 Nona Yarbrough PA Orthopedic Surgery 07/02/20
--- OUTSIDE RECORDS SUMMARY | 2025-01-10 10:59 | XMS_ITS | Clinical Summary ---
Author Organization [facility] Address [address] [place] [address] Care Team Providers Care Maintenance Leader Name Role Phone Karla Rai MD Primary Care Provider Nona Yarbrough Unavailable [phone] Allergies Active Allergy Reactions Criticality Noted Date [...] Trivalent, IM (MDV) 06/21/2016 Pneumococcal, Unspecified 06/29/2016 Surgical History Surgery Date Site/Laterality Comments ID INJECTION AA&/STRD OTHER PERIPHERAL NERVE/BRANCH Peripheral Nerve Block Wrist Median - (Added by TW Conv) LAPAROSCOPIC GASTROTOMY W/ R EPAIR OF ULCER HYSTERECTOMY Medical History Medical History Date Comments Personal history of other sp ecified conditions History of fatigue - (Added by TW Conv) Other specified soft tissue disorders Bilateral swelling of feet - (Added by TW Conv) Hypertension GERD (gastroesophageal reflux disease) Arthritis Family History Medical History Relation Name Comments Arthritis Father Family history of arthritis - (Added by TW Conv) Diabetes Father Family history of diabetes mellitus - (Added by TW Conv) Heart disease Father Family history of cardiac disorder - (Added by TW Conv) Hypertension Father Family history of hypertension - (Added by TW Conv) Relation Name Status Comments Father Social History Tobacco Use Types Packs/Day Years Used Date Smoking Tobacco: Never Smokeless Tobacco: Never Tobacco Cessation:Counseling Given: Not Answered Alcohol Use Standard Drinks/Week Comments No 0 (1 standard drink = 0.6 oz pur e alcohol) Comments No Sex and Gender Information Value Date Recorded Sex Assigned at Not on file Legal Sex Female 7:25 AM ANIMAL COP Gender Identity Not on file Sexual Orientation Not on file Occupation Industry Job Start Date Job End Date RETIRED Not on file Not on file Not on file Obstetrics History Last Filed Vital Signs Vital Sign Reading Time Taken Comments Blood Pressure 132/68 08/02/2024 11:54 AM ANIMAL COP Pulse 78 08/02/2024 11:54 AM ANIMAL COP Temperature 36.1 C (96.9 F) 08/14/2020 11:16 AM ANIMAL COP Respiratory Rate 16 08/02/2024 11:54 AM ANIMAL COP Oxygen Saturation 99% 12/15/2023 10:54 AM CDT Inhaled Oxygen Concentration - - Weight 61.2 kg (135 lb) 08/02/2024 11:54 AM ANIMAL COP Height 152.4 cm (5') 08/02/2024 11:54 AM ANIMAL COP Body Mass Index 26.37 08/02/2024 11:54 AM ANIMAL COP Plan of Treatment Health Maintenance Due Date Last Done Comments Depression Screening 1935 Hepatitis B Screening 12/02/1953 Pneumococcal vaccine 65+ (1 of 1 - PCV) 12/02/1985 1 Zoster Vaccine (1 of 2) 12/02/1985 Well Visit 65+ 12/02/2000 Fall Risk Assessment 07/04/2021 07/04/2020 Influenza Vaccine (Season Ended) 2025 07/26/20 18, 06/21/2016 DTaP/Tdap/Td Vaccine (2 - Td or Tdap) 12/24/202802/2019 Medical Devices Implanted Type Area Blow Mold Machine Operator Device Identifier Shelf Expiration Date Model / Serial / Lot [employer] 6195-1-001 Cement Bone Simplex Gentamicin High Viscosity 40gm - Sn/A - [id number] Implanted:Qty: 1 on 07/01/2020 by Vijay Rogel MD at [facility] Bone Cement Right: Knee [employer] 06/19/2021 6195-1-001 / N/A / [id number] [employer] [id number] Attune S+ Cement Fix Bearing Knee 3 Baseplate Tibial - [id number] Implanted:Qty: 1 on 07/01/2020 by Vijay Rogel MD at [facility] Right: Knee [employer] 02/17/2030 [id number] / / [id number] [employer] [id number] Attune Cemented Posterior Stabilize Knee Right 3 Component - [id number] Implanted:Qty: 1 on 07/01/2020 by Vijay Rogel MD at [facility] Right: Knee [employer] 05/20/2029 [id number] / / [id number] [employer] [id number] Attune 8mm Fix Bearing Posterior Stabilize Knee 3 Insert Tibial - [id number] Implanted:Qty: 1 on 07/01/2020 by Vijay Rogel MD at [facility] Right: Knee [employer] 01/17/2023 [id number] / / [id number] Insurance COMMERCIAL GENERIC MEDICARE MEDICARE COMMERCIAL GENERIC MEDICARE MEDICARE COMMERCIAL GENERIC MEDICARE COMMERCIAL GENERIC Advance Directives For more information, please contact: [phone] * Full Code (Latest Code Status on File) Date Activated Date Inactivated Comments 07/01/2020 11:19 AM 07/04/2020 10:41 PM Care Teams Maintenance Leader Relationship Specialty Start Date End Date Karla Rai MD PCP - General 06/05/20 Nona Yarbrough PA Orthopedic Surgery 07/02/20
--- OUTSIDE RECORDS SUMMARY | 2025-01-10 10:59 | XMS_ITS | Clinical Summary ---
Author Organization [facility] [address] Address [address] [place] [address] Care Team Providers Care Advertising Consultant Name Role Phone Karla Rai MD Primary Care Provider Allergies Active Allergy Reactions Criticality Noted Date Comments Adhesive Rash Low 05/19/2022 Adhesive Tape-Silicones Unknown Medium 05/19/2022 Penicillins Hives High 05/19/2022 Sulfa (Sulfonamide Antibiotics) Hives High 04/22 Medications lisinopriL (PRINIVIL) 40 mg tablet Take 40 mg by mouth daily. 04/01/2022 Active HYDROcodone-acet aminophen (NORCO) 10-325 mg Tablet TAKE ONE TABLET BY MOUTH 5 TIMES A DAY FOR 30 DAYS 05/16/2022 Active Stimulant Laxative Plus 8.6-50 mg tablet Take 1 Tablet by mouth daily at bedtime. 05/11/2022 Active ferrous sulfate 325 mg (65 mg iron) Tablet, Delayed Release (E.C.) Take 325 mg by mouth 2 times daily. 05/09/2022 Active lactulose (ENULOSE) 10 gram/15 mL 10 gram/15 mL solution TAKE 15 ML BY MOUTH EVERY DAY 05/07/2022 Active multivitamin (DAILY-SUNI) tablet Take 1 Tablet by mouth daily. Active CALCIUM CARBONATE ORAL Take by mouth. Active famotidine (PEPCID) 40 mg tablet 11/05/2022 Active ibuprofen (MOTRIN) 400 mg tablet 11/05/2022 Active apixaban (ELIQUIS) 5 mg tablet Take 5 mg by mouth 2 times daily. 12/15/2023 Active Active Problems Problem Noted Date Diagnosed Date Iron deficiency anemia 05/19/2022 Encounters Date Type Department Care Team Description 01/10/2025 Telephone [facility] Oncology and Hematology - [address] [place] [address] Manish Booker MD Appointment Correction 11/07/2024 External Device Data STL ABSTRACTION Provider, Abstract 10/12/2024 External Device Data STL ABSTRACTION Provider, Abstract from Last 3 Months Family History Medical History Relation Name Comments Diabetes Father Heart Disease Father Relation Name Status Comments Father Mother Social History Tobacco Use Types Packs/Day Years Used Date Smoking Tobacco: Never Smokeless Tobacco: Never Tobacco Cessation:Counseling Given: Not Answered Alcohol Use Standard Drinks/Week Comments Never 0 (1 standard drink = 0.6 oz pur e alcohol) Comments Unknown Sex and Gender Information Value Date Recorded Sex Assigned at Not on file Legal Sex Female 7:26 PM CDT Gender Identity Not on file Sexual Orientation Not on file Last Filed Vital Signs Vital Sign Reading Time Taken Comments Blood Pressure 127/69 07/10/2024 11:09 AM CDT Pulse 80 07/10/2024 11:09 AM CDT Temperature 36.7 C (98 F) 07/10/2024 11:09 AM CDT Respiratory Rate 16 07/10/2024 11:09 AM CDT Oxygen Saturation 97% 07/10/2024 11:09 AM CDT Inhaled Oxygen Concentration - - Weight 60.6 kg (133 lb 9.6 oz) 07/10/2024 11:09 AM CDT Height 154.9 cm (5' 1 ) 06/05/2022 1:44 PM CDT Body Mass Index 25.24 06/05/2022 1:44 PM CDT Plan of Treatment Upcoming Encounters Date Type Department Care Team (Late st Contact Info) Description 01/17/2025 11:45 AM CDT Office Visit [facility] Oncology and Hematology - [address] [place] [address] Manish Booker MD [address] [facility] [address] [place] [address] Health Maintenance Due Date Last Done Comments DTAP/TDAP/TD VACCINES (1 - Tdap) 12[birth year]02/1954 Traditional Medicare (ACO) Annual Wellness Visit 12/02 PNEUMOCOCCAL VACCINE 50+ YEARS (1 of 1 - PCV) 12/02/18 86 06/29/2016 ZOSTER VACCINE (1 of 2) 12/02/1985 OSTEOPOROSIS SCREENING 12/02/2000 RSV VACCINE (60+ or ) (1 - 1-dose 75+ series) 12/02/2010 INFLUENZA VACCINE (#1) 2024 06/21/2016 Insurance MEDICARE PART A AND B [employer] Care Teams Advertising Consultant Relationship Specialty Start Date End Date Karla Rai MD [address] [place] [address] PCP - General Family Practice 05/19/22
[2025-01-10 11:18] LABS: Iron 97 ug/dL (37-170)
[2025-01-10 11:20] LABS: Anion Gap 11 mmol/L (4-12); Blood Urea Nitrogen 22 mg/dL (7-17); Calcium 9.7 mg/dL (8.4-10.2); Carbon Dioxide 26 mmol/L (22-30); Chloride 100 mmol/L (98-107); Estimated Glomerular Filt Rate > 60; Glucose 102 mg/dL (65-110); Potassium 4.4 mmol/L (3.4-5.0); Sodium 137 mmol/L (137-145)
[2025-01-10 11:31] LABS: Percent Iron Saturation 28 % (20-50)
[2025-01-10 12:34] LABS: Folic Acid > 20.0 ng/mL (2.76->20); Vitamin B12 > 1000.0 pg/mL (239-931)
== END 2025-01-10 09:48 | disposition home or self-care (01) ==
LOC: ANHLAB 09:48
PROVIDERS: PCP Family Medicine; Visit Provider Internal Medicine Hematology & Oncology
DX: D64.9 Anemia, unspecified (principal)
CPT/HCPCS: 36415; 80048; 82607; 82728; 82746; 83540; 83550; 85025

== ENCOUNTER 2025-04-12 13:52 | Outpatient (CLI) | payer MEDICARE, SELFPAY ==
--- OUTSIDE RECORDS SUMMARY | 2025-04-12 14:02 | XMS_ITS | Referral Summary ---
Author Organization [facility] Address [address] [place] [address] Care Team Providers Care Supervisor Production Managing Name Role Phone Karla Rai MD Primary Care Provider Nona Yarbrough Unavailable [phone] Encounters Date Type Department Care Team Description 02/27/2025 1:00 PM CDT Office Visit [facility] Cardiology [address] [place] [address] Maribel King NP Longstanding persistent atrial fibrillation (HCC) (Primary Dx); Chronic anticoagulation from Last 3 Months Allergies Active Allergy Reactions Criticality Noted Date [...] mouth daily 30 tablet/chew tab 0 Active cyanocobalamin (Vitamin B-12) 1,000 mcg tabletIndications [...] a day 180 tablet 3 4 Active buprenorphine (BUTRANS) 10 mcg/hour Place 1 patch on the skin once a week 5 Active Active Problems Problem Noted Date Diagnosed [...] on file 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 Gender Identity Not on file Sexual Orientation Not on file Occupation Industry Job Start Date Job End Date RETIRED Not on file Not on file Not on file Last Filed Vital Signs Vital Sign Reading Time Taken Comments Blood Pressure 114/64 02/27/2025 12:55 PM CDT Pulse 72 02/27/2025 12:55 PM CDT Temperature 36.1 C (96.9 F) 08/14/2020 11:16 AM STRUCTURAL STEEL WORKER Respiratory Rate 16 08/02/2024 11:54 AM STRUCTURAL STEEL WORKER Oxygen Saturation 98% 02/27/2025 12:55 PM CDT Inhaled Oxygen Concentration - - Weight 59.4 kg (131 lb) 02/27/2025 12:55 PM CDT Height 152.4 cm (5') 02/27/2025 12:55 PM CDT Body Mass Index 25.58 02/27/2025 12:55 PM CDT Plan of Treatment Not on file Medical Devices Implanted Type Area Hand Funnel Coater Device Identifier Shelf Expiration Date Model / Serial / Lot [employer] 6195-1-001 Cement Bone Simplex Gentamicin High Viscosity 40gm - Sn/A - [id number] Implanted:Qty: 1 on 07/01/2020 by Vijay Rogel MD at [facility] Bone Cement Right: Knee [employer] 06/19/2021 6195-1-001 / N/A / [id number] [employer] [id number] Attune S+ Cement Fix Bearing Knee 3 Baseplate Tibial - [id number] Implanted:Qty: 1 on 07/01/2020 by Vijay Rogel MD at [facility] Right: Knee [employer] 02/17/2030 [id number] / / [id number] [employer] [id number] Attune Cemented Posterior Stabilize Knee Right 3 Component - [id number] Implanted:Qty: 1 on 07/01/2020 by Vijay Rogel MD at [facility] Right: Knee [employer] 05/20/2029 [id number] / / [id number] [employer] [id number] Attune 8mm Fix Bearing Posterior Stabilize Knee 3 Insert Tibial - [id number] Implanted:Qty: 1 on 07/01/2020 by Vijay Rogel MD at [facility] Right: Knee [employer] 01/17/2023 [id number] / / [id number] Insurance COMMERCIAL GENERIC MEDICARE MEDICARE COMMERCIAL GENERIC MEDICARE COMMERCIAL GENERIC COMMERCIAL GENERIC Advance Directives For more information, please contact: [phone] * Full Code (Latest Code Status on File) Date Activated Date Inactivated Comments 07/01/2020 11:19 AM 07/04/2020 10:41 PM Care Teams Supervisor Production Managing Relationship Specialty Start Date End Date Karla Rai MD PCP - General 06/05/20 Nona Yarbrough PA Orthopedic Surgery 07/02/20
--- OUTSIDE RECORDS SUMMARY | 2025-04-12 14:02 | XMS_ITS | Clinical Summary ---
Author Organization [facility] Address [address] [place] [address] Care Team Providers Care Legal Nurse Consultant Name Role Phone Karla Rai MD Primary Care Provider Nona Yarbrough Unavailable [phone] Allergies Active Allergy Reactions Criticality Noted Date [...] Date SCC (squamous cell carcinoma) 02/21/2018 05/11/2018 Encounters Date Type Department Care Team Description 02/27/2025 1:00 PM CDT Office Visit [facility] Cardiology [address] [place] [address] Maribel King NP Longstanding persistent atrial fibrillation (HCC) (Primary Dx); Chronic anticoagulation from Last 3 Months Immunizations Immunization Administration Dates Next Due Influenza, Trivalent, IM (MDV) 06/21/2016 Pneumococcal, Unspecified 06/29/2016 Surgical History Surgery Date Site/Laterality Comments CO INJECTION AA&/STRD OTHER PERIPHERAL NERVE/BRANCH Peripheral Nerve [...] on file 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 Gender Identity Not on file Sexual Orientation Not on file Occupation Industry Job Start Date Job End Date RETIRED Not on file Not on file Not on file Obstetrics History Last Filed Vital Signs Vital Sign Reading Time Taken Comments Blood Pressure 114/64 02/27/2025 12:55 PM CDT Pulse 72 02/27/2025 12:55 PM CDT Temperature 36.1 C (96.9 F) 08/14/2020 11:16 AM NIGHT WORKER Respiratory Rate 16 08/02/2024 11:54 AM NIGHT WORKER Oxygen Saturation 98% 02/27/2025 12:55 PM CDT Inhaled Oxygen Concentration - - Weight 59.4 kg (131 lb) 02/27/2025 12:55 PM CDT Height 152.4 cm (5') 02/27/2025 12:55 PM CDT Body Mass Index 25.58 02/27/2025 12:55 PM CDT Plan of Treatment Health Maintenance Due Date Last Done Comments Depression Screening 1935 Osteoporosis Screening-Bone Density Scan 1935 Hepatitis B Screening 12/02/1953 Pneumococcal vaccine 65+ (1 of 1 - PCV) 12/02/1985 1 Zoster Vaccine (1 of 2) 12/02/1985 Well Visit 65+ 12/02/2000 Fall Risk Assessment 07/04/2021 07/04/2020 Influenza Vaccine (#1) 2025 07/26/2018, 2015 DTaP/Tdap/Td Vaccine (2 - Td or Tdap) 12/24/202802/2019 Medical Devices Implanted Type Area Compound Specialist Device Identifier Shelf Expiration Date Model / Serial / Lot [employer] 6195-1-001 Cement Bone Simplex Gentamicin High Viscosity 40gm - Sn/A - [id number] Implanted:Qty: 1 on 07/01/2020 by Vijay Rogel MD at [facility] Bone Cement Right: Knee [employer] 06/19/2021 6195-1-001 / N/A / [id number] [employer] [id number] Attune S+ Cement Fix Bearing Knee 3 Baseplate Tibial - [id number] Implanted:Qty: 1 on 07/01/2020 by Vijay Rogel MD at [facility] Right: Knee [employer] 02/17/2030 [id number] / / [id number] [employer] [id number] Attune Cemented Posterior Stabilize Knee Right 3 Component - [id number] Implanted:Qty: 1 on 07/01/2020 by Vijay Rogel MD at [facility] Right: Knee [employer] 05/20/2029 [id number] / / [id number] [employer] [id number] Attune 8mm Fix Bearing Posterior Stabilize Knee 3 Insert Tibial - [id number] Implanted:Qty: 1 on 07/01/2020 by Vijay Rogel MD at [facility] Right: Knee [employer] 01/17/2023 [id number] / / [id number] Insurance COMMERCIAL GENERIC MEDICARE MEDICARE COMMERCIAL GENERIC MEDICARE MEDICARE COMMERCIAL GENERIC MEDICARE COMMERCIAL GENERIC Advance Directives For more information, please contact: [phone] * Full Code (Latest Code Status on File) Date Activated Date Inactivated Comments 07/01/2020 11:19 AM 07/04/2020 10:41 PM Care Teams Legal Nurse Consultant Relationship Specialty Start Date End Date Karla Rai MD PCP - General 06/05/20 Nona Yarbrough PA Orthopedic Surgery 07/02/20
--- OUTSIDE RECORDS SUMMARY | 2025-04-12 14:02 | XMS_ITS | Clinical Summary ---
Author Organization [facility] Aidan sanchez Fabianasonyadanette Address [address] [address] Care Team Providers Care Lime Spreader Name Role Phone Karla Rai MD Primary [...] Encounters Date Type Department Care Team Description 04/04/2025 External Device Data [facility] ABSTRACTION Provider, Abstract 04/04/2025 External Device Data [facility] ABSTRACTION Provider, Abstract 04/04/2025 External Device Data [facility] ABSTRACTION Provider, Abstract 04/03/2025 External Device Data [facility] ABSTRACTION Provider, Abstract 03/07/2025 External Device Data [facility] ABSTRACTION Provider, Abstract 03/06/2025 External Device Data [facility] ABSTRACTION Provider, Abstract 02/08/2025 External Device Data [facility] ABSTRACTION Provider, Abstract 02/06/2025 External Device Data [facility] ABSTRACTION Provider, Abstract 01/11/2025 Orders Only [facility] Oncology and Hematology - [facility] [place] [address] Manish Booker MD Chronic anemia (Primary Dx) from Last 3 Months Family History Medical [...] 11:09 AM CDT Height 154.9 cm (5' 1) 06/05/2022 1:44 PM CDT Body Mass Index 25.24 06/05/2022 1:44 PM CDT Plan of Treatment Upcoming Encounters Date Type Department Care Team (Late st Contact Info) Description 04/18/2025 1:15 PM CDT Office Visit [facility] Oncology and Hematology - [place] [place] [address] Manish Booker MD [address] [facility] [address] [place] [address] Health Maintenance Due Date Last Done Comments DTAP/TDAP/TD VACCINES (1 - Tdap) 12/02/1954 Traditional Medicare (ACO) Annual Wellness Visit 12/02 PNEUMOCOCCAL VACCINE 50+ YEARS (1 of 1 - PCV) 12/02/18 86 06/29/2016 ZOSTER VACCINE (1 of 2) 12/02/1985 OSTEOPOROSIS SCREENING 12/02/2000 RSV VACCINE (60+ or ) (1 - 1-dose 75+ series) 12/02/2010 INFLUENZA VACCINE (#1) 2025 06/21/2016 Insurance MEDICARE PART A AND B [facility] Care Teams Lime Spreader Relationship Specialty Start Date End Date Karla Rai MD [address] [place] [address] PCP - General Family Practice 05/19/22
[2025-04-12 14:09] LABS: Hematocrit 42.0 % (37.0-47.0); Hemoglobin 14.0 g/dL (12.0-15.0); Immature Granulocyte Percent A 0.4 % (0-0.5); Lymphocytes Absolute Auto 1.18 K/mm3 (0.9-3.2); Mean Corpuscular HGB Conc 33.3 g/dl (32-36); Mean Corpuscular Hemoglobin 30.7 pg (26-34); Mean Corpuscular Volume 92.1 fl (80-100); Nucleated Red Blood Cells Absolute Auto 0.000 K/mm3 (0.0-0.012); Nucleated Red Blood Cells Perc 0.0 % (0.0-0.2); Platelet Count Result 225 k/mm3 (150-375); Red Blood Count 4.56 M/mm3 (4.2-5.4); White Blood Count 8.2 K/mm3 (4.5-10.0)
[2025-04-12 15:08] LABS: Alanine Aminotransferase 20 U/L (6-35); Albumin Level 4.4 g/dL (3.5-5.1); Alkaline Phosphatase 99 U/L (38-126); Anion Gap 9 mmol/L (4-12); Aspartate Amino Transferase 33 U/L (14-36); Bilirubin,Total 0.4 mg/dL (0.2-1.3); Blood Urea Nitrogen 17 mg/dL (7-17); Calcium 10.1 mg/dL (8.4-10.2); Carbon Dioxide 28 mmol/L (22-30); Chloride 101 mmol/L (98-107); Estimated Glomerular Filt Rate 47; Glucose 100 mg/dL (65-110); Iron 94 ug/dL (37-170); Potassium 4.4 mmol/L (3.4-5.0); Sodium 138 mmol/L (137-145); Total Protein 8.2 g/dL (6.3-8.2)
[2025-04-12 15:18] LABS: Percent Iron Saturation 28 % (20-50)
[2025-04-12 15:50] LABS: Ferritin 41.40 ng/mL (11.1-264)
[2025-04-12 16:21] LABS: Vitamin B12 > 1000.0 pg/mL (239-931)
== END 2025-04-12 13:53 | disposition home or self-care (01) ==
PROVIDERS: PCP Family Medicine; Visit Provider Internal Medicine Hematology & Oncology
DX: D64.9 Anemia, unspecified (principal)
CPT/HCPCS: 36415; 80053; 82607; 82728; 82746; 83540; 83550; 85025

== ENCOUNTER 2025-09-07 12:06 | Outpatient (CLI) | payer MEDICARE, SELFPAY ==
[2025-09-07 12:54] LABS: Hematocrit 40.7 % (37.0-47.0); Hemoglobin 13.0 g/dL (12.0-15.0); Immature Granulocyte Percent A 0.5 % (0-0.5); Lymphocytes Absolute Auto 1.44 K/mm3 (0.9-3.2); Mean Corpuscular HGB Conc 31.9 g/dl (32-36); Mean Corpuscular Hemoglobin 29.7 pg (26-34); Mean Corpuscular Volume 93.1 fl (80-100); Nucleated Red Blood Cells Absolute Auto 0.000 K/mm3 (0.0-0.012); Nucleated Red Blood Cells Perc 0.0 % (0.0-0.2); Platelet Count Result 202 k/mm3 (150-375); Red Blood Count 4.37 M/mm3 (4.2-5.4); White Blood Count 7.7 K/mm3 (4.5-10.0)
[2025-09-07 13:16] LABS: Alanine Aminotransferase 25 U/L (6-35); Albumin Level 4.7 g/dL (3.5-5.1); Alkaline Phosphatase 101 U/L (38-126); Anion Gap 9 mmol/L (4-12); Aspartate Amino Transferase 51 U/L (14-36); Bilirubin,Total 0.5 mg/dL (0.2-1.3); Blood Urea Nitrogen 22 mg/dL (7-17); Calcium 10.1 mg/dL (8.4-10.2); Carbon Dioxide 27 mmol/L (22-30); Chloride 101 mmol/L (98-107); Cholesterol 177 mg/dL (0-200); Estimated Glomerular Filt Rate > 60; Glucose 105 mg/dL (65-110); HDL Direct 54 mg/dL; Magnesium 2.0 mg/dL (1.6-2.3); Potassium 4.2 mmol/L (3.4-5.0); Sodium 137 mmol/L (137-145); Total Protein 8.4 g/dL (6.3-8.2); Triglycerides 96 mg/dL (<150)
[2025-09-07 13:43] LABS: Thyroid Stimulating Hormone Reflex 2.690 uIU/mL (0.465-4.68)
[2025-09-07 13:50] LABS: Hemoglobin A1C 5.5 % (<5.7)
[2025-09-07 14:14] LABS: Vitamin B12 999.0 pg/mL (239-931)
== END 2025-09-07 12:07 | disposition home or self-care (01) ==
LOC: ANHGOSHLAB 12:06
PROVIDERS: PCP Nurse Practitioner Family; Visit Provider Nurse Practitioner Family
DX: I48.0 Paroxysmal atrial fibrillation (principal); I10 Essential (primary) hypertension; E55.9 Vitamin D deficiency, unspecified; R73.9 Hyperglycemia, unspecified; D50.9 Iron deficiency anemia, unspecified
CPT/HCPCS: 36415; 80053; 80061; 82306; 82607; 83036; 83735; 84443; 85025